=== PATIENT | female | born 1965 | race Caucasian/White ===

== ENCOUNTER 2023-06-01 20:21 | Outpatient (REF) | payer OTHER, SELFPAY ==
[2023-06-04 18:10] LABS: Age Gdln ACOG Testing Note (.); HPV Aptima Negative (Negative); IGP, Aptima HPV, rfx 16/18,45 Note (.)
== END 2023-06-01 20:22 | disposition home or self-care (01) ==
LOC: LAB 20:21
PROVIDERS: Visit Provider Physician Assistant
DX: Z01.419 Encounter for gynecological examination (general) (routine) without abnormal findings (principal)
CPT/HCPCS: 87624; G0145

== ENCOUNTER 2024-06-06 20:44 | Outpatient (REF) | payer OTHER, SELFPAY ==
--- OUTSIDE RECORDS SUMMARY | 2024-06-06 20:53 | XMS_ITS | CCD ---
Author Organization [facility] Care Team Providers Care Zoology Professor Name Role Phone DR HEIDE GUTIERREZ Admitting Unavailable DR HEIDE GUTIERREZ Attending Unavailable Heide Gutierrez Primary Care Physician Heide Gutierrez Attending Unavailable Hoy, Heide Admitting Unavailable Hoy, Heide Admitting Unavailable Hoy, Heide Attending Unavailable Hoy, Heide Admitting Unavailable Hoy, Heide Attending Unavailable Hoy, Heide Admitting Unavailable Hoy, Heide Attending Unavailable Hoy, Heide Admitting Unavailable Hoy, Heide Attending Unavailable Hoy, Heide Admitting Unavailable Hoy, Heide Attending Unavailable Hoy, Heide Attending Unavailable Hoy, Heide Admitting Unavailable Hoy, Heide Admitting Unavailable Hoy, Heide Attending Unavailable Rafa, Mohamed F. Admitting Unavailable Rafa, Mohamed F. Attending Unavailable Rafa, Mohamed F. Referring Unavailable Hoy, Heide Attending Unavailable Hoy, Heide Admitting Unavailable Hoy, Heide Admitting Unavailable Hoy, Heide Attending Unavailable Rafa, Mohamed F. Attending Unavailable NONE, XXXX Referring Unavailable ANNE, Tai R Admitting Unavailable ANNE, Tai R Attending Unavailable ANNE, Tai R Referring Unavailable ANNE, Tai R Admitting Unavailable ANNE, Tai R Attending Unavailable ANNE, Tai R Referring Unavailable TONYA, JADEN Admitting Unavailable TONYA, JADEN Attending Unavailable TONYA, JADEN Referring Unavailable TONYA, JADEN Attending Unavailable TONYA, JADEN Referring Unavailable TONYA, JADEN Admitting Unavailable Hoy, Heide Attending Unavailable Hoy, Heide Referring Unavailable Hoy, Heide Admitting Unavailable Hoy, Heide Admitting Unavailable Hoy, Heide Attending Unavailable Hoy, Heide Admitting Unavailable Hoy, Heide Attending Unavailable Hoy, Heide Admitting Unavailable Hoy, Heide Attending Unavailable Kemar Magallanes Attending Unavailable Hoy, Heide Referring Unavailable Hoy, Heide Admitting Unavailable Hoy, Heide Attending Unavailable Pranav Nicolas Attending Unavailable Hoy, Heide Admitting Unavailable Hoy, Heide Attending Unavailable Mandeep SMILEY Attending Unavailable Hoy, Heide Attending Unavailable Karlosy, Heide Admitting Unavailable Heide Gutierrez MD Primary Care Provider [phone] Allergies Allergy Classification Reported Allergen(s) Allergy Type Date of Onset Reaction(s) Facility Aminoketones (1 source) buPROPion; Translations: [Wellbutrin] Drug Allergy [facility] Cephalosporins (antibiotic) (1 source) Cephalexin; Translations: [Keflex] Drug Allergy [facility] Penicillins (antibiotic) (1 source) Penicillin; Translations: [penicillin] Drug Allergy [facility] Sulfonamides (antibiotic) (1 source) Sulfonamides (Antibiotic); Translations: [sulfa drugs] Drug Allergy [facility] (20 sources) buPROPion; Translations: [bupropion] Drug Allergy Weal (disorder) [facility] (9 sources) Cephalexin; Translations: [cephalexin] Drug Allergy Unknown (qualifier value) [facility] (20 sources) Penicillin; Translations: [penicillin] Drug Allergy 4 [facility] (20 sources) Sulfonamides (Antibiotic); Translations: [sulfa drugs] Drug allergy Unknown (qualifier value), Stomach ache (finding) [facility] (9 sources) Unable to obtain; Translations: [Unable to obtain] Propensity to adverse reactions (disorder) [facility] (2 sources) buPROPion Drug Allergy 4 Hives [facility] (2 sources) Sulfonamides (Antibiotic) Propensity to adverse reactions to drug 4 Nausea [facility] Medications Current Medications Medication Drug Class(es) Dates Sig (Normalized) Sig (Original) 8 hr acetaminophen 650 mg extended release oral tablet (2 sources) take 1 tablet by mouth every eight hours as needed acetaminophen (TYLENOL ARTHRITIS) 650 mg 8 hr tablet Take 1 tablet (650 mg total) by mouth every 8 (eight) hours as needed. Active amitriptyline hydrochloride 25 mg oral tablet (13 sources) Tricyclic Antidepressant Start: 08-18-2023 amitriptyline 25 mg Tab Oral, Once a day (at bedtime), Refills(s) 0, Depression Start Date: 08/18/23 Status: Ordered ARIPiprazole 2 mg oral tablet (20 sources) Atypical Antipsychotic Start: 11-20-2021 take 1 tablet by mouth once daily Abilify 2 mg Tab 2 mg = 1 tab(s), Oral, Daily, Refills(s) 0, Depression Start Date: 11/20/21 Status: Ordered carvedilol 12.5 mg oral tablet (20 sources) alpha-Adrenergic Aravind, beta-Adrenergic Aravind Start: 11-20-2021 take 1 tablet by mouth twice daily Coreg 12.5 mg Tab 12.5 mg = 1 tab(s), Oral, BID, Refills(s) 0, High blood pressure Start Date: 11/20/21 Status: Ordered cholecalciferol 0.025 mg oral tablet (4 sources) Vitamin D Start: 10-19-2023 calcium (as carbonate)-vitamin D 90 mg-25 mcg (1000 intl units) oral tablet Refill(s) 0 Start Date: 10/19/23 Status: Ordered diclofenac sodium 75 mg delayed release oral tablet (1 source) Nonsteroidal Anti-inflammatory Drug Start: 11-20-2021 take 1 tablet by mouth twice daily diclofenac sodium 75 mg Oral EC Tab 75 mg = 1 tab(s), Oral, BID, Refills(s) 0 Start Date: 11/20/21 Status: Ordered ferrous sulfate 325 mg delayed release oral tablet (13 sources) Start: 08-18-2023 take 1 tablet by mouth twice daily ferrous sulfate 325 mg oral enteric coated tablet 325 mg = 1 tab(s), Oral, BID, # 30 tab(s), Refills(s) 0 Start Date: 08/18/23 Status: Ordered Fish Oils (4 sources) Start: 10-19-2023 Caney-3 Fish Oil Refills(s) 0 Start Date: 10/19/23 Status: Ordered magnesium sulfate 100 mg oral capsule (2 sources) Multi Vitamins oral tablet (17 sources) Start: 11-27-2021 take 2 tablets by mouth once daily Multi Vitamins oral tablet 2 tab(s), Oral, Daily, Refill(s) 0, Prophylaxis Start Date: 11/27/21 Status: Ordered omeprazole 20 mg delayed release oral capsule (20 sources) Proton Pump Inhibitor Start: 11-27-2021 omeprazole 20 mg Cap-DR 40 mg = 2 cap(s), Oral, Daily, Refills(s) 0, Control of stomach acid Start Date: 11/27/21 Status: Ordered Start: 11-20-2021 take 1 capsule by [facility] once daily omeprazole 40 mg Cap-DR 40 mg = 1 cap(s), Oral, Daily, Refills(s) 0 Start Date: 11/20/21 Status: Ordered phentermine hydrochloride 37.5 mg oral tablet (18 sources) Sympathomimetic Amine Anorectic Start: 08-18-2023 take 1 tablet by mouth once daily Adipex-P 37.5 mg Tab 37.5 mg = 1 tab(s), Oral, Daily, Refills(s) 0, Other (see comment) Start Date: 08/18/23 Status: Ordered Start: 11-20-2021 take 1 tablet by [facility] once daily Adipex-P 37.5 mg Tab 37.5 mg = 1 tab(s), Oral, Daily, Refills(s) 0, Other (see comment) Start Date: 11/20/21 Status: Ordered sucralfate 1000 mg oral tablet (5 sources) Aluminum Complex Start: 12-11-2021 take 1 tablet by mouth four times daily Carafate 1 gram Tab 1 gm = 1 tab(s), Oral, QID, # 120 tab(s), Refills(s) 3, Pharmacy: [facility], 177.8, cm, 12/05/21 6:59:00 EDT, Height/Length Dosing, 151, kg, 12/05/21 6:59:00 EDT, Weight Dosing Start Date: 12/11/21 Status: Ordered 24 hr venlafaxine 75 mg extended release oral capsule (20 sources) Serotonin and Norepinephrine Reuptake Inhibitor Start: 02-11-2023 take 2 capsules by mouth every twenty-four hours in the morning venlafaxine XR (EFFEXOR XR) 75 mg 24 hr capsule Take 2 capsules (150 mg total) by mouth in the morning. 02/11/2023 Active Start: 11-20-2021 take 2 capsules by m outh once daily venlafaxine 75 mg Cap-ER 150 mg = 2 cap(s), Oral, Daily, Refills(s) 0, Depression Start Date: 11/20/21 Status: Ordered Start: 11-20-2021 take 3 capsules by m outh once daily venlafaxine 75 mg Cap-ER 225 mg = 3 cap(s), Oral, Daily, Refills(s) 0 Start Date: 11/20/21 Status: Ordered Vitamin B Complex oral capsule (4 sources) Start: 10-19-2023 Vitamin B Comp charles oral capsule Refill(s) 0 Start Date: 10/19/23 Status: Ordered Vitamin B-12 1000 mcg sublingual tablet (4 sources) Start: 11-27-2021 take 1 tablet under the tongue once daily Vitamin B-12 1000 mcg sublingual tablet 1,000 mcg = 1 tab(s), SubLingual, Daily, Refills(s) 0, Prophylaxis Start Date: 11/27/21 Status: Ordered Vitamin D (17 sources) Start: 11-27-2021 Vitamin D 50,0 00 International_Unit, Oral, qWeek, as directed, Refills(s) 0 Start Date: 11/27/21 Status: Ordered Problems Active Problems Problem Classification Problem Date Documented Da te Episodic/Chronic Anxiety disorders (20 sources) Anxiety; Translations: [Anxiety disorder, unspecified] Onset: 10-01-2023 11-20-2021 Chronic Deficiency and other anemia (1 source) Hemoglobinopathy; 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 Deficiency and other anemia (20 sources) Iron deficiency anemia; Translations: [Iron deficiency anemia, unspecified] Onset: 10-01-2023 11-20-2021 Episodic Deficiency and other anemia (19 sources) Anemia 02-27-2023 Episodic Diverticulosis and diverticulitis (20 sources) Diverticula of intestine; Translations: [Diverticulosis of large intestine without perforation or abscess without bleeding] Onset: 12-11-2021 Chronic Essential hypertension (19 sources) Hypertensive disorder 02-27-2023 Chronic Gastritis and duodenitis (3 sources) Chronic gastritis; Translations: [Unspecified chronic gastritis without bleeding] Onset: 12-11-2021 Chronic Gastritis and duodenitis (20 sources) Gastritis 12-11-2021 Episodic Mood disorders (20 sources) Depressive disorder; Translations: [Depression] Onset: 10-01-2023 11-20-2021 Chronic Other and unspecified benign neoplasm (1 source) Benign lipomatous tumor; Translations: [Benign lipomatous neoplasm, unspecified] Onset: 12-11-2021 Episodic Other and unspecified benign neoplasm (20 sources) Pedunculated lipoma; Translations: [Benign lipomatous neoplasm, unspecified] Onset: 10-01-2023 11-27-2021 Episodic Other circulatory disease (20 sources) Prehypertension; Translations: [Elevated blood-pressure reading, without diagnosis of hypertension] Onset: 10-01-2023 11-20-2021 Episodic Other connective tissue disease (1 source) Disorder of soft tissue; Translations: [Other specified soft tissue disorders] Onset: 10-19-2023 Episodic Other female genital disorders (1 source) Abnormal uterine bleeding; Translations: [Abnormal uterine and vaginal bleeding, unspecified] Onset: 02-27-2023 Chronic Other nutritional; endocrine; and metabolic disorders (20 sources) Body mass index 40+ - severely obese 11-27-2021 Chronic Other nutritional; endocrine; and metabolic disorders (20 sources) Morbid obesity; Translations: [Morbid (severe) obesity due to excess calories] Onset: 10-01-2023 11-27-2021 Chronic Other upper respiratory disease (20 sources) Allergic rhinitis; Translations: [Allergic rhinitis, unspecified] Onset: 10-01-2023 11-20-2021 Chronic Peripheral and visceral atherosclerosis (4 sources) Peripheral vascular disease, unspecified; Translations: [Peripheral vascular disease, unspecified] Onset: 10-01-2023 10-01-2023 Chronic Residual codes; unclassified (20 sources) Obstructive sleep apnea syndrome; Translations: [Obstructive sleep apnea (adult) (pediatric)] Onset: 10-01-2023 11-20-2021 Chronic Past or Other Problems Problem Classification Problem Date Documented Date Episodic/Chronic Other connective tissue disease (4 sources) Swelling of bilateral lower limbs; Translations: [Other specified soft tissue disorders] Onset: 10-01-2023 10-01-2023 Episodic Other diseases of veins and lymphatics (1 source) Telangiectasia disorder; Translations: [Varicose veins of other specified sites] 10-01-2023 Episodic Results Test Name Value Interpretation Reference Range Facility [id number] 11-30-2023 HbA1c (Bld) [Mass fraction] 5.6 % Normal <=5.9 [facility] Comment on above: Performed By: #### [id number] #### [facility] [address] [place] [address] CBC w/ Auto Diffon 4 Basophils/100 WBC (Bld) 0.4 % Normal 0.0-2.0 [facility] Comment on above: Performed By: #### 2 [id number] #### [facility] [address] [place] [address] Basophils/Leukocytes Auto (Bld) [Pure # fraction] 0.0 E9/L Normal 0.0-0.2 [facility] Comment on above: Performed By: #### 2 [id number] #### [facility] [address] [place] [address] Eosinophils (Bld) [#/Vol] 0.2 E9/L Normal 0.0-0.5 [facility] Comment on above: Performed By: #### 2 [id number] #### [facility] [address] [place] [address] Eosinophils/100 WBC (Bld) 1.8 % Normal 0.0-8.0 [facility] Comment on above: Performed By: #### 2 [id number] #### [facility] [address] [place] [address] Erythrocyte distribution width (RBC) [Ratio] 15.1 % High 10.9-14.2 [facility] Comment on above: Performed By: #### 2 [id number] #### [facility] [address] [place] [address] Hematocrit (Bld) [Volume fraction] 41.7 % Normal 34.0-46.0 [facility] Comment on above: Performed By: #### 2 [id number] #### [facility] [address] [place] [address] Hemoglobin (Bld) [Mass/Vol] 13.8 g/dL Normal 12.0-16.0 [facility] Comment on above: Performed By: #### 2 [id number] #### [facility] [address] [place] [address] Lymphocytes (Bld) [#/Vol] 1.3 E9/L Normal 1.0-4.0 [facility] Comment on above: Performed By: #### 2 [id number] #### [facility] [address] [place] [address] Lymphocytes/100 WBC (Bld) 10.3 % Low 14.0-50.0 [facility] Comment on above: Performed By: #### 2 [id number] #### [facility] [address] [place] [address] MCH (RBC) [Entitic mass] 29.0 pg Normal 27.0-34.0 [facility] Comment on above: Performed By: #### 2 [id number] #### [facility] [address] [place] [address] MCHC (RBC) [Mass/Vol] 33.1 g/dL Normal 31.4-36.0 [facility] Comment on above: Performed By: #### 2 [id number] #### [facility] [address] [place] [address] MCV (RBC) [Entitic vol] 87.6 fL Normal 80.0-100.0 [facility] Comment on above: Performed By: #### 2 [id number] #### [facility] [address] [place] [address] Monocytes (Bld) [#/Vol] 1.0 E9/L Normal 0.2-1.0 [facility] Comment on above: Performed By: #### 2 [id number] #### [facility] [address] [place] [address] Neutrophils (Bld) [#/Vol] 10.0 E9/L High 2.0-7.5 [facility] Comment on above: Performed By: #### 2 [id number] #### [facility] [address] [place] [address] Neutrophils/100 WBC (Bld) 79.6 % High 36.0-75.0 [facility] Comment on above: Performed By: #### 2 [id number] #### [facility] [address] [place] [address] Platelet mean volume (Bld) [Entitic vol] 9.3 fL Normal 6.4-10.8 [facility] Comment on above: Performed By: #### 2 [id number] #### [facility] [address] [place] [address] Platelets (Bld) [#/Vol] 298.0 E9/L Normal 150.0-500. 0 [facility] Comment on above: Performed By: #### 2 [id number] #### [facility] [address] [place] [address] RBC (Bld) [#/Vol] 4.8 E12/L Normal 4.3-5.9 [facility] Comment on above: Performed By: #### 2 [id number] #### [facility] [address] [place] [address] WBC corrected for nucl RBC Auto (Bld) [#/Vol] 12.5 E9/L High 4.0-11.0 [facility] Comment on above: Performed By: #### 2 [id number] #### [facility] [address] [place] [address] CHEMISTRYOrdered By: SYSTEM SYSTEM on 11-28-2023 Albumin [Mass/Vol] 4.0 g/dL Normal 3.3 - 5.0 gm/dL [facility] Albumin/Globulin [Mass ratio] 1.4 {ratio} Normal 1.1 - 2.2 [facility] ALP [Catalytic activity/Vol] 90 [iU]/d Normal 21 - 98 Int._Unit/ L [facility] ALT No additional P-5'-P [Catalytic activity/Vol] 12 [iU]/d Normal 6 - 46 Int._Unit/ L [facility] Anion gap [Moles/Vol] 12 mmol/L Normal 6 - 16 mEq/L [facility] AST [Catalytic activity/Vol] 13 [iU]/d Normal 5 - 43 Int._Unit/ L [facility] Bilirubin [Mass/Vol] 0.4 mg/dL Normal 0.0 - 1 .1 mg/dL [facility] Calcium [Mass/Vol] 9.2 mg/dL Normal 8.9 - 11. 1 mg/dL [facility] Chloride [Moles/Vol] 104 mmol/L Normal 101 - 1 11 mmol/L [facility] CO2 [Moles/Vol] 29 mmol/L Normal 21 - 31 mmol/L [facility] Creatinine [Mass/Vol] 0.8 mg/dL Normal 0.5 - 1.3 mg/dL [facility] eGFR 86 mL/min/1.73 m2 Normal >=59mL/min /1.73 m2 [facility] Globulin (S) [Mass/Vol] 2.8 g/dL Normal 1.4 - 4.0 gm/dL [facility] Glucose [Mass/Vol] 112 mg/dL Normal 55 - 199 mg/dL [facility] Potassium [Moles/Vol] 4.5 mmol/L Normal 3.5 - 5.3 mmol/L [facility] Protein [Mass/Vol] 6.8 g/dL Normal 6.0 - 7.8 gm/dL [facility] Sodium [Moles/Vol] 140 mmol/L Normal 135 - 145 mmol/L [facility] Urea nitrogen [Mass/Vol] 18 mg/dL Normal 5 - 21 mg/dL [facility] Urea nitrogen/Creatinine [Mass ratio] 22 mg/mg High 10 - 20 [facility] CMPon 11-28-2023 Albumin [Mass/Vol] 4.0 g/dL Normal 3.3-5.0 [facility] Comment on above: Performed By: #### 2 [id number] #### [facility] [address] [place] [address] Albumin/Globulin (S) [Mass conc ratio] 1.4 Normal 1.1-2.2 [facility] Comment on above: Performed By: #### 2 [id number] #### [facility] [address] [place] [address] ALP [Catalytic activity/Vol] 90 Int._Unit/L Normal 21-98 [facility] Comment on above: Performed By: #### 2 [id number] #### [facility] [address] [place] [address] ALT No additional P-5'-P [Catalytic activity/Vol] 12 Int._Unit/L Normal 6-46 [facility] Comment on above: Performed By: #### 2 [id number] #### [facility] [address] [place] [address] Anion gap [Moles/Vol] 12 mmol/L Normal 6-16 [facility] Comment on above: Performed By: #### 2 [id number] #### [facility] [address] [place] [address] AST [Catalytic activity/Vol] 13 Int._Unit/L Normal 5-43 [facility] Comment on above: Performed By: #### 2 [id number] #### [facility] [address] [place] [address] Bilirubin [Mass/Vol] 0.4 mg/dL Normal 0.0-1.1 [facility] Comment on above: Performed By: #### 2 [id number] #### [facility] [address] [place] [address] Calcium [Mass/Vol] 9.2 mg/dL Normal 8.9-11.1 [facility] Comment on above: Performed By: #### 2 [id number] #### [facility] [address] [place] [address] Chloride [Moles/Vol] 104 mmol/L Normal 101-111 [facility] Comment on above: Performed By: #### 2 [id number] #### [facility] [address] [place] [address] CO2 [Moles/Vol] 29 mmol/L Normal 21-31 [facility] Comment on above: Performed By: #### 2 [id number] #### [facility] [address] [place] [address] Creatinine [Mass/Vol] 0.8 mg/dL Normal 0.5-1.3 [facility] Comment on above: Performed By: #### 2 [id number] #### [facility] [address] [place] [address] Globulin (S) [Mass/Vol] 2.8 g/dL Normal 1.4-4.0 [facility] Comment on above: Performed By: #### 2 [id number] #### [facility] [address] [place] [address] Glucose [Mass/Vol] 112 mg/dL Normal 55-199 [facility] Comment on above: Performed By: #### 2 [id number] #### [facility] [address] [place] [address] Potassium [Moles/Vol] 4.5 mmol/L Normal 3.5-5.3 [facility] Comment on above: Performed By: #### 2 [id number] #### [facility] [address] [place] [address] Protein [Mass/Vol] 6.8 g/dL Normal 6.0-7.8 [facility] Comment on above: Performed By: #### 2 [id number] #### [facility] [address] [place] [address] Sodium [Moles/Vol] 140 mmol/L Normal 135-145 [facility] Comment on above: Performed By: #### 2 [id number] #### [facility] [address] [place] [address] Urea nitrogen [Mass/Vol] 18 mg/dL Normal 5-21 [facility] Comment on above: Performed By: #### 2 [id number] #### [facility] [address] [place] [address] Urea nitrogen/Creatinine [Mass ratio] 22 No Units High 10-20 [facility] Comment on above: Performed By: #### 2 [id number] #### [facility] [address] [place] [address] HEMATOLOGYOrdered By: SYSTEM SYSTEM on 11-28-2023 Basophils/100 WBC (Bld) 0.4 % Normal 0.0 - 2.0 % [facility] Basophils/Leukocytes Auto (Bld) [Pure # fraction] 0.0 E9/L Normal 0.0 - 0.2 E9/L [facility] Eosinophils (Bld) [#/Vol] 0.2 E9/L Normal 0.0 - 0.5 E9/L [facility] Eosinophils/100 WBC (Bld) 1.8 % Normal 0.0 - 8.0 % [facility] Erythrocyte distribution width (RBC) [Ratio] 15.1 % High 10.9 - 14.2 % [facility] Hematocrit (Bld) [Volume fraction] 41.7 % Normal 34.0 - 46.0 % [facility] Hemoglobin (Bld) [Mass/Vol] 13.8 g/dL Normal 12.0 - 16.0 gm/dL [facility] Lymphocytes (Bld) [#/Vol] 1.3 E9/L Normal 1.0 - 4.0 E9/L [facility] Lymphocytes/100 WBC (Bld) 10.3 % Low 14.0 - 50.0 % [facility] MCH (RBC) [Entitic mass] 29.0 pg Normal 27.0 - 34.0 pg [facility] MCHC (RBC) [Mass/Vol] 33.1 g/dL Normal 31.4 - 36.0 gm/dL [facility] MCV (RBC) [Entitic vol] 87.6 fL Normal 80.0 - 100.0 fL [facility] Monocytes (Bld) [#/Vol] 1.0 E9/L Normal 0.2 - 1.0 E9/L [facility] Monocytes/100 WBC (Bld) 7.9 % Normal 4.0 - 14.0 % [facility] Neutrophils (Bld) [#/Vol] 10.0 E9/L High 2.0 - 7.5 E9/L [facility] Neutrophils/100 WBC (Bld) 79.6 % High 36.0 - 75.0 % [facility] Heme Platelet mean volume (Bld) [Entitic vol] 9.3 fL Normal 6.4 - 10.8 fL [facility] Heme Platelets (Bld) [#/Vol] 298.0 E9/L Normal 150.0 - 500.0 E9/L [facility] Heme RBC (Bld) [#/Vol] 4.8 E12/L Normal 4.3 - 5.9 E12/L [facility] Heme WBC corrected for nucl RBC Auto (Bld) [#/Vol] 12.5 E9/L High 4.0 - 11.0 E9/L [facility] Heme eGFRon 11-28-2023 eGFR 86 mL/min/1.73 m2 Normal >=59 [facility] Comment on above: Order Comment: Order added by Discern Expert. Performed By: #### 1 [id number] #### [facility] [address] [place] [address] CBC w/ Auto Diffon Basophils/100 WBC (Bld) 0.4 % Normal 0.0-2.0 [facility] Comment on above: Performed By: #### 2 [id number] #### [facility] [address] [place] [address] Basophils/Leukocytes Auto (Bld) [Pure # fraction] 0.1 E9/L Normal 0.0-0.2 [facility] Comment on above: Performed By: #### 2 [id number] #### [facility] [address] [place] [address] Eosinophils (Bld) [#/Vol] 0.2 E9/L Normal 0.0-0.5 [facility] Comment on above: Performed By: #### 2 [id number] #### [facility] [address] [place] [address] Eosinophils/100 WBC (Bld) 1.7 % Normal 0.0-8.0 [facility] Comment on above: Performed By: #### 2 [id number] #### [facility] [address] [place] [address] Erythrocyte distribution width (RBC) [Ratio] 19.5 % High 10.9-14.2 [facility] Comment on above: Performed By: #### 2 [id number] #### [facility] [address] [place] [address] Hematocrit (Bld) [Volume fraction] 38.3 % Normal 34.0-46.0 [facility] Comment on above: Performed By: #### 2 [id number] #### [facility] [address] [place] [address] Hemoglobin (Bld) [Mass/Vol] 12.8 g/dL Normal 12.0-16.0 [facility] Comment on above: Performed By: #### 2 [id number] #### [facility] [address] [place] [address] Hypochromia Auto Ql (Bld) PRESENT Invalid Interpretation Code [facility] Comment on above: Performed By: #### 2 [id number] #### [facility] [address] [place] [address] Lymphocytes (Bld) [#/Vol] 1.3 E9/L Normal 1.0-4.0 [facility] Comment on above: Performed By: #### 2 [id number] #### [facility] [address] [place] [address] Lymphocytes/100 WBC (Bld) 10.0 % Low 14.0-50.0 [facility] Comment on above: Performed By: #### 2 [id number] #### [facility] [address] [place] [address] MCH (RBC) [Entitic mass] 28.4 pg Normal 27.0-34.0 [facility] Comment on above: Performed By: #### 2 [id number] #### [facility] [address] [place] [address] MCHC (RBC) [Mass/Vol] 33.4 g/dL Normal 31.4-36.0 [facility] Comment on above: Performed By: #### 2 [id number] #### [facility] [address] [place] [address] MCV (RBC) [Entitic vol] 85.2 fL Normal 80.0-100.0 [facility] Comment on above: Performed By: #### 2 [id number] #### [facility] [address] [place] [address] Monocytes (Bld) [#/Vol] 0.9 E9/L Normal 0.2-1.0 [facility] Comment on above: Performed By: #### 2 [id number] #### [facility] [address] [place] [address] Neutrophils (Bld) [#/Vol] 10.6 E9/L High 2.0-7.5 [facility] Comment on above: Performed By: #### 2 [id number] #### [facility] [address] [place] [address] Neutrophils/100 WBC (Bld) 81.2 % High 36.0-75.0 [facility] Comment on above: Performed By: #### 2 [id number] #### [facility] [address] [place] [address] Platelet 317.0 E9/L Normal 150.0-500. 0 [facility] Comment on above: Performed By: #### 2 [id number] #### [facility] [address] [place] [address] Platelet mean volume (Bld) [Entitic vol] 8.9 fL Normal 6.4-10.8 [facility] Comment on above: Performed By: #### 2 [id number] #### [facility] [address] [place] [address] RBC (Bld) [#/Vol] 4.5 E12/L Normal 4.3-5.9 [facility] Comment on above: Performed By: #### 2 [id number] #### [facility] [address] [place] [address] RBC size Nom (Bld) SEE MORPHOLOGY Invalid Interpretation Code [facility] Comment on above: Performed By: #### 2 [id number] #### [facility] [address] [place] [address] WBC corrected for nucl RBC Auto (Bld) [#/Vol] 13.0 E9/L High 4.0-11.0 [facility] Comment on above: Performed By: #### 2 [id number] #### [facility] [address] [place] [address] CHEMISTRYOrdered By: SYSTEM SYSTEM on 10-31-2023 Albumin [Mass/Vol] 4.1 g/dL Normal 3.3 - 5.0 gm/dL [facility] Chem Albumin/Globulin [Mass ratio] 1.5 {ratio} Normal 1.1 - 2.2 [facility] ALP [Catalytic activity/Vol] 95 [iU]/d Normal 21 - 98 Int._Unit/ L [facility] Chem ALT No additional P-5'-P [Catalytic activity/Vol] 13 [iU]/d Normal 6 - 46 Int._Unit/ L [facility] Anion gap [Moles/Vol] 12 mmol/L Normal 6 - 16 mEq/L [facility] AST [Catalytic activity/Vol] 15 [iU]/d Normal 5 - 43 Int._Unit/ L [facility] Bilirubin [Mass/Vol] 0.3 mg/dL Normal 0.0 - 1 .1 mg/dL [facility] Calcium [Mass/Vol] 9.2 mg/dL Normal 8.9 - 11. 1 mg/dL [facility] Chloride [Moles/Vol] 103 mmol/L Normal 101 - 1 11 mmol/L [facility] CO2 [Moles/Vol] 30 mmol/L Normal 21 - 31 mmol/L [facility] Creatinine [Mass/Vol] 0.7 mg/dL Normal 0.5 - 1.3 mg/dL [facility] Chem eGFR 101 mL/min/1.73 m2 Normal >=59mL/mi n /1.73 m2 [facility] Chem Globulin (S) [Mass/Vol] 2.7 g/dL Normal 1.4 - 4.0 gm/dL [facility] Glucose [Mass/Vol] 97 mg/dL Normal 55 - 199 mg/dL [facility] Potassium [Moles/Vol] 4.8 mmol/L Normal 3.5 - 5.3 mmol/L [facility] Protein [Mass/Vol] 6.8 g/dL Normal 6.0 - 7.8 gm/dL [facility] Sodium [Moles/Vol] 140 mmol/L Normal 135 - 145 mmol/L [facility] Urea nitrogen [Mass/Vol] 15 mg/dL Normal 5 - 21 mg/dL [facility] Urea nitrogen/Creatinine [Mass ratio] 21 mg/mg High 10 - 20 [facility] CMPon 10-31-2023 Albumin [Mass/Vol] 4.1 g/dL Normal 3.3-5.0 [facility] Comment on above: Performed By: #### 2 [id number] #### [facility] [address] [place] [address] Albumin/Globulin (S) [Mass conc ratio] 1.5 Normal 1.1-2.2 [facility] Comment on above: Performed By: #### 2 [id number] #### [facility] [address] [place] [address] ALP [Catalytic activity/Vol] 95 Int._Unit/L Normal 21-98 [facility] Comment on above: Performed By: #### 2 [id number] #### [facility] [address] [place] [address] ALT No additional P-5'-P [Catalytic activity/Vol] 13 Int._Unit/L Normal 6-46 [facility] Comment on above: Performed By: #### 2 [id number] #### [facility] [address] [place] [address] Anion gap [Moles/Vol] 12 mmol/L Normal 6-16 [facility] Comment on above: Performed By: #### 2 [id number] #### [facility] [address] [place] [address] AST [Catalytic activity/Vol] 15 Int._Unit/L Normal 5-43 [facility] Comment on above: Performed By: #### 2 [id number] #### [facility] [address] [place] [address] Bilirubin [Mass/Vol] 0.3 mg/dL Normal 0.0-1.1 [facility] Comment on above: Performed By: #### 2 [id number] #### [facility] [address] [place] [address] Calcium [Mass/Vol] 9.2 mg/dL Normal 8.9-11.1 [facility] Comment on above: Performed By: #### 2 [id number] #### [facility] [address] [place] [address] Chloride [Moles/Vol] 103 mmol/L Normal 101-111 [facility] Comment on above: Performed By: #### 2 [id number] #### [facility] [address] [place] [address] CO2 [Moles/Vol] 30 mmol/L Normal 21-31 [facility] Comment on above: Performed By: #### 2 [id number] #### [facility] [address] [place] [address] Creatinine [Mass/Vol] 0.7 mg/dL Normal 0.5-1.3 [facility] Comment on above: Performed By: #### 2 [id number] #### [facility] [address] [place] [address] Globulin (S) [Mass/Vol] 2.7 g/dL Normal 1.4-4.0 [facility] Comment on above: Performed By: #### 2 [id number] #### [facility] [address] [place] [address] Glucose [Mass/Vol] 97 mg/dL Normal 55-199 [facility] Comment on above: Performed By: #### 2 [id number] #### [facility] [address] [place] [address] Potassium [Moles/Vol] 4.8 mmol/L Normal 3.5-5.3 [facility] Comment on above: Performed By: #### 2 [id number] #### [facility] [address] [place] [address] Protein [Mass/Vol] 6.8 g/dL Normal 6.0-7.8 [facility] Comment on above: Performed By: #### 2 [id number] #### [facility] [address] [place] [address] Sodium [Moles/Vol] 140 mmol/L Normal 135-145 [facility] Comment on above: Performed By: #### 2 [id number] #### [facility] [address] [place] [address] Urea nitrogen [Mass/Vol] 15 mg/dL Normal 5-21 [facility] Comment on above: Performed By: #### 2 [id number] #### [facility] [address] [place] [address] Urea nitrogen/Creatinine [Mass ratio] 21 No Units High 10-20 [facility] Comment on above: Performed By: #### 2 [id number] #### [facility] [address] [place] [address] HEMATOLOGYOrdered By: SYSTEM SYSTEM on 10-31-2023 Basophils/100 WBC (Bld) 0.4 % Normal 0.0 - 2.0 % [facility] Heme Basophils/Leukocytes Auto (Bld) [Pure # fraction] 0.1 E9/L Normal 0.0 - 0.2 E9/L [facility] Eosinophils (Bld) [#/Vol] 0.2 E9/L Normal 0.0 - 0.5 E9/L [facility] Eosinophils/100 WBC (Bld) 1.7 % Normal 0.0 - 8.0 % [facility] Erythrocyte distribution width (RBC) [Ratio] 19.5 % High 10.9 - 14.2 % [facility] Hematocrit (Bld) [Volume fraction] 38.3 % Normal 34.0 - 46.0 % [facility]e Hemoglobin (Bld) [Mass/Vol] 12.8 g/dL Normal 12.0 - 16.0 gm/dL [facility] Hypochromia Auto Ql (Bld) PRESENT *NA* (10/31/23 10:53 AM) Invalid Interpretation Code [facility] Lymphocytes (Bld) [#/Vol] 1.3 E9/L Normal 1.0 - 4.0 E9/L [facility] Lymphocytes/100 WBC (Bld) 10.0 % Low 14.0 - 50.0 % [facility]e MCH (RBC) [Entitic mass] 28.4 pg Normal 27.0 - 34.0 pg [facility] Heme MCHC (RBC) [Mass/Vol] 33.4 g/dL Normal 31.4 - 36.0 gm/dL [facility] MCV (RBC) [Entitic vol] 85.2 fL Normal 80.0 - 100.0 fL [facility] Monocytes (Bld) [#/Vol] 0.9 E9/L Normal 0.2 - 1.0 E9/L [facility] Monocytes/100 WBC (Bld) 6.7 % Normal 4.0 - 14.0 % [facility] Neutrophils (Bld) [#/Vol] 10.6 E9/L High 2.0 - 7.5 E9/L [facility] Neutrophils/100 WBC (Bld) 81.2 % High 36.0 - 75.0 % [facility] Heme Platelet 317.0 E9/L Normal 150.0 - 500.0 E9/L [facility] Heme Platelet mean volume (Bld) [Entitic vol] 8.9 fL Normal 6.4 - 10.8 fL [facility]e RBC (Bld) [#/Vol] 4.5 E12/L Normal 4.3 - 5.9 E12/L [facility] Heme RBC size Nom (Bld) SEE MORPHOLOGY *NA* (10/31/23 10:53 AM) Invalid Interpretation Code [facility]e WBC corrected for nucl RBC Auto (Bld) [#/Vol] 13.0 E9/L High 4.0 - 11.0 E9/L [facility] Heme eGFRon 10-31-2023 eGFR 101 mL/min/1.73 m2 Normal >=59 [facility] Comment on above: Order Comment: Order added by Discern Expert. Performed By: #### 1 [id number] #### [facility] [address] [place] [address] Heart and Vascular Office/Cl inic Noteon 10-19-2023 Heart and Vascular Office/Clinic Note Heart and Vascular Office/Clinic Note History of Present Illness This is a pleasant 58-year-old lady with bilateral lower extremity swelling discoloration and concern for peripheral arterial disease and venous insufficiency. I independently reviewed and interpreted her studies her PVR is normal her venous reflux ultrasound is normal. The discoloration is probably for autonomic side effects from her antidepressant medications. She is obese with lower extremity swelling and edema and also she has diabetes and hypertension. I discussed with her to work with her primary care physician on her diabetes and hypertension. I also recommended weight loss and exercise compression stockings leg elevation. I will see her in about a year. She had multiple questions and I addressed them one by one. Review of Systems Constitutional: no fever, no chills, no sweats, no weakness Skin: no Jaundice, no rash, no lesions, nopetechiae ENMT: no ear pain, no sore throat, no congestion, no hoarseness Respiratory: no shortness of breath, no cough, no orthopnea, no wheezing Cardiovascular: no chest pain, no palpitations, no edema Gastrointestinal: no nausea, no vomiting, no diarrhea, no GI bleeding Genitourinary: no dysuria, no hematuria, no discharge, no pain Musculoskeletal: no back pain, no trauma Neurologic: no headache, no dizziness, no numbness, no weakness Psychiatric: no sleeping problems, no irritability, no mood swings/depression. Heme/Lymph: no bleeding tendency, no bruising tendency, no petechiae, no swollen nodes Allergy/Immunologic: no seasonal allergies, no food allergies, no recurrent infections, no impaired immunity Additional ROS info: Except as noted in the above Review of Systems and in the History of Present Illness all other systems have been reviewed and are negative or noncontributory. Physical Exam Vitals & Measurements BP: 167/90 General: alert, no acute distress Skin: warm, dry Head: no trauma, normocephalic Neck: Trachea midline, no adenopathy, no tenderness Eye: normal conjunctiva, sclera clear Cardiovascular: regular rate and rhythm, normal peripheral perfusion Respiratory: Lungs CTA, respirations non labored Chest wall: no deformity. Gastrointestinal: soft, non distended, no tenderness, no guarding. Back: No tenderness, Normal ROM, Normal alignment. Extremities: no edema,no deformity, no trauma Neurological: oriented x 4, LOC appropriate for age, motor strength equal & normal bilaterally, sensation equal & normal bilaterally, speech normal Psychiatric: cooperative, affect appropriate for age, normal judgement, normal psychiatric thoughts. Assessment/Plan 1. Morbid obesity (E66.01: Morbid (severe) obesity due to excess calories) 2. Leg swelling (M79.89: Other specified soft tissue disorders) This is a pleasant 58-year-old lady with bilateral lower extremity swelling discoloration and concern for peripheral arterial disease and venous insufficiency. I independently reviewed and interpreted her studies her PVR is normal her venous reflux ultrasound is normal. The discoloration is probably for autonomic side effects from her antidepressant medications. She is obese with lower extremity swelling and edema and also she has diabetes and hypertension. I discussed with her to work with her primary care physician on her diabetes and hypertension. I also recommended weight loss and exercise compression stockings leg elevation. I will see her in about a year. She had multiple questions and I addressed them one by one. Ordered: US LE Venous Duplex Insufficiency Bilat US PVR Lower EXT Complete Bilat Follow-up No qualifying data available Problem List/Past Medical History Ongoing Allergic rhinitis Antral gastritis Anxiety BMI 45.0-49.9, adult Borderline hypertension Depression Diverticulosis of colon Iron deficiency anemia Morbid obesity JELANI (obstructive sleep apnea) Pedunculated lipoma Historical Anemia Depression Diverticulosis of colon Gastritis Hypertension Procedure/Surgical History Dilatation (04/24/2023), Colonoscopy (12/05/2021), Esophagogastroduodenoscopy (12/05/2021), Excision of lipoma (12/05/2021). Medications Abilify 2 mg Tab, 2 mg= 1 tab(s), Oral, Daily Adipex-P 37.5 mg Tab, 37.5 mg= 1 tab(s), Oral, Daily amitriptyline 25 mg Tab, Oral, Once a day (at bedtime) calcium (as carbonate)-vitamin D 90 mg-25 mcg (1000 intl units) oral tablet Coreg 12.5 mg Tab, 12.5 mg= 1 tab(s), Oral, BID ferrous sulfate 325 mg oral enteric coated tablet, 325 mg= 1 tab(s), Oral, BID Caney-3 Fish Oil omeprazole 20 mg Cap-DR, 40 mg= 2 cap(s), Oral, Daily Sodium Chloride 0.9% IV Ana Cristina 100 mL 100 mL, 100 mL, IV venlafaxine 75 mg Cap-ER, 150 mg= 2 cap(s), Oral, Daily Vitamin B Complex oral capsule Allergies Wellbutrin (Hives) penicillin (Hives) sulfa drugs (Stomach upset) Social History Alcohol - Denies Alcohol Use, 11/27/2021 Current, 1-2 times per month, 02/27/2023 Subst (more content not included)... Normal [facility] Comment on above: Result Comment: Elec tronically Signed By: Rafa QUAN, Kati Katz\.br\Date and Time Signed: 10/19/23 09:29 EDT US LE Venous Duplex Insuffic iency Bilaton 10-19-2023 US LE Venous Duplex Insufficiency Bilat Exam Date/Time: 10/15/2023 15:19 EDT Reason for Exam: M79.89 I73.9 Report IMPRESSION: RIGHT LEG-DEEP VEINS. NEGATIVE FOR DEEP VENOUS THROMBOSIS. RIGHT LEG-SUPERFICIAL VEINS. GREATER SAPHENOUS VEIN AND SMALL SAPHENOUS VEIN NEGATIVE FOR VALVULAR INCOMPETENCY. LEFT LEG-DEEP VEINS. NEGATIVE FOR DEEP VENOUS THROMBOSIS. LEFT LEG SUPERFICIAL VEINS. GREATER SAPHENOUS VEIN AND SMALL SAPHENOUS VEIN NEGATIVE FOR VALVULAR INCOMPETENCY. CLINICAL HISTORY: M79.89 I73.9. Bilateral leg swelling. COMPARISON: COMMENT: On the right, the greater saphenous vein, common femoral vein, femoral vein, deep femoral vein, and popliteal vein demonstrate spontaneous phasic venous flow with augmentation, competence, non-pulsatility, and compressibility every 2 cm. The posterior tibial deep calf vein compresses. The peroneal deep calf vein is not visualized. On the left, the greater saphenous vein, common femoral vein, femoral vein, deep femoral vein, and popliteal vein demonstrate spontaneous phasic venous flow with augmentation, competence, non-pulsatility, and compressibility every 2 cm. The posterior tibial deep calf vein compresses. The peroneal deep calf vein is not visualized. The right and left greater saphenous and small saphenous vein measurements are detailed below. Ordering Provider: Kati Craig FINAL REPORT Dictated: 10/19/2023 9:21 am Stef Langley M.D. Signed (Electronic Signature): 10/19/2023 9:21 am Signed by: Stef Langley M.D. Transcribed by: NELLA Technologist: LÓPEZ Technical Comments Patient Position Reverse Trendelenburg CFV Reflux (sec): None. DFV Reflux (sec): None. FV Prox Reflux (sec): None. FV Mid Reflux (sec): None. FV Dist Reflux (sec): None. Technical Comments Pop V Reflux (sec): None. Right Greater Saphenous: Saphenofemoral Junction (at/near): Diameter 0.9 Depth: Intrafascial Reflux (sec): None. Prox thigh: Diameter 0.7 Depth: Intrafascial Reflux (sec): None. Mid thigh: Diameter 0.6 Depth: Intrafascial Reflux (sec): None. Distal thigh: Diameter 0.5 Depth: Intrafascial Reflux (sec): None. At Knee Diameter 0.5 Depth: Intrafascial Reflux (sec): None. Proximal lower leg: Diameter 0.4 Depth: Intrafascial Reflux (sec): None. Mid lower leg: Diameter 0.3 Depth: Intrafascial Reflux (sec): None. Right Small Saphenous: Connects to: Distal Thigh Junction/Proximal Calf Diameter 0.3 Depth: Intrafascial Reflux (sec): None. Mid calf: Diameter 0.2 Depth: Intrafascial Reflux (sec): None. Patient Position Reverse Trendelenburg Left Greater Saphenous: Saphenofemoral Junction (at/near): Diameter 1.1 Depth: Intrafascial Reflux (sec): None. Prox thigh: Diameter 0.5 Mid thigh: Diameter 0.5 Depth: Intrafascial Reflux (sec): None. Distal thigh: Diameter 0.5 Depth: Intrafascial Reflux (sec): None. At Knee Diameter 0.5 Depth: Intrafascial Reflux (sec): None. Proximal lower leg: Diameter 0.4 Depth: Intrafascial Reflux (sec): None. Mid lower leg: Diameter 0.4 Depth: Intrafascial Reflux (sec): None. Accessory Saphenous: Diameter none Left Small Saphenous: Connects to: Distal Thigh Junction/Proximal Calf Diameter 0.4 Depth: Intrafascial Reflux (sec): None. Mid calf: Diameter 0.4 Depth: Intrafascial Reflux (sec): None. Normal [facility] US PVR Lower EXT Complete Bi laton 10-19-2023 US PVR Lower EXT Complete Bilat Exam Date/Time: 10/15/2023 15:18 EDT Reason for Exam: M79.89 I73.9 Report IMPRESSION: THE RIGHT ANKLE-BRACHIAL INDEX IS BORDERLINE ABNORMAL AT REST. THE LEFT ANKLE-BRACHIAL INDEX IS NORMAL AT REST. CLINICAL HISTORY: M79.89 I73.9. Bilateral leg swelling. COMMENT: On the right, the brachial systolic pressure is 139 , the high thigh pressure is >255, the low thigh pressure is >255, the calf pressure is 148 , the posterior tibial ankle pressure is 132 , the dorsalis pedis ankle pressure is 131 , and the digit pressure is 109 . The ankle-brachial index at the posterior tibial artery is 0.95 and at the dorsalis pedis is 0.94, with normal 1.0 or greater. The toe-brachial index is 0.78, with normal 0.7 or greater. The plethysmography waveforms are mildly to moderately abnormal. On the left, the brachial systolic pressure is 129 , the high thigh pressure is >255, the low thigh pressure is >255, the calf pressure is 161 , the posterior tibial ankle pressure is 147 , the dorsalis pedis ankle pressure is 148 , and the digit pressure is 119 . The ankle-brachial index at the posterior tibial artery is 1.06 and at the dorsalis pedis is 1.06, with normal 1.0 or greater. The toe-brachial index is 0.86, with normal 0.7 or greater. The plethysmography waveforms are mildly to moderately abnormal. Ordering Provider: Kati Craig FINAL REPORT Dictated: 10/19/2023 9:23 am Stef Langley M.D. Signed (Electronic Signature): 10/19/2023 9:23 am Signed by: Stef Langley M.D. Transcribed by: NELLA Technologist: KEYLA Hogan [facility] Coding Summary.on 09-29-2023 Coding Summary. RJWRYuje08GXt5qCq+PG hlYWQ+PE 9RJRMeN48zlPQcqN1bS0OKEUeQXz scQCCYCIlYPeFabsGjYM3fyXLuTW Ju IC8+CG5cFBTvSlvcfOKls8P9yFA0 U57vfw5uFYidtEK9REFlKkLasrqz c4dvoGq1ALiiCtgiMsJw XVYokN03MAB6hZ09Wi61fZRejIOl p8jjzXe2MpPrTLTvZGD0iEeeURec s3HmAVWrB54jwGVdv6R6 HVCueMxwdWEyPoRueOR0bS2xALeo plrmi6krflkuYem2uu88eMJvq0G6 qJZ5U2UsioN6PSRnxIDs LepilBDExX1hkgxhf4ssajnxZgOz DMXtXFv7AAd0JBKrzCveRgLuFA52 OZQ7CROpnwJeO8SyHBHr rMahXfS0s7I2Jg1TD1UOOdwlG0MA TUFSWTwvdGQ+VJ09gt60J0WiJpav Ddf7BVBpLZH9qPB7vD9f AEXfVKuqb5F0fTD8U5BpugRcov7b v2hcIDSjPOutG84srEPnr6H6MTDc yMU6WJUvpDqdStUoqT02 Oyc+VHDfnAmhj4DcIfibf4vpe2da cLp6HionNVKrqhTxhBceEXD9q1Dh Cb9bBGSeqVH8lEM3yU0v WqYpXmQ4SZheT043TdXdwVIaRvgj S80rO2IdgMN+VIMfNnk4NANqyQvy BZ1eC1QwWESubjiwcZHc wFmfJY6xKXOlaeccIJSgsG5iSWFc V1a3ByRmLiF8TZjfD8QxCVLlvoeq Tp71uH0qFiTkZqV5ZPqp G0VxixD1KPSzvVMlRDyjAGC1I66m l6K7VZQgSOLgRBF9qSZ2dP1tqFqi bjogbGVmdDsgdmVydGlj OYzsMHimE072DWDzlJozGwFoGZmv ZyBEYXRlOiAgMDYvMjUvMjAyNDwv dGQ+AFSoMWS4fCvvRXDf aXNpEEroHc0thMfdgEehGT5bJBHa kekoOUIogW9pQIHbiQBtdBkeZI6i MKHnpkwmo465NrTbRWV3 KYJutQHoP4YolS0uDdCcLBIcLISh F8SuwIMtUUlcX019WWwlPrD7ZERz rsDvK5YpLBVcjOerKyQ0 q7W9Ji0Hm1BrtdueH1DeoVMjTiYq AuqmHWg6A9XzIqvszYL+TI22WXId AA50XAi8WOV0cGsrKKby PJDlA4SmlF1aEaLxHFNzJERdPwy+ PHRhYmxlIHdpZHRoPScxMDAlJyBz nGzuAU6zYy0nLUToASFk mDyvkLKbJxLts3feKRYaKRapAL8f oBvqU0OppEG2VQQzx2q3Ai50W69d T1YgxFV+WYYikBA4aBA4 xU8aMzHvKiC7VYstF029PsEdfCDb Jzkgo1rzy6qifDv1UjY2AWTubdYh kJprGET4w2JtOy31J19o HHvaFQCtKEGjYCObIXNhdAtrhg5u lI1wYp1+XZRkfYR6rFF9xM1oDsTp KnD7RFduU221EtHkkLCm Rghpz8vqg2iqzEo6PcNgNERgudAs vThwLBV6z4DxWs77K4DtxNtcp6Yc Rke8et09lLVqc9F8hPW6 O5WzUEQuwmbbnPFjnWgjCM6jVWYt dcaiJDEioP1oZQVmG5i0NiCaWaI5 BHimR8VbqoF8QJJfrFAl BBJhbAROjP7euzoan1effoypRlVw QRTbLVd7PNm8ROUwyDvjJmJmDZU3 BtR1KAB1sHPuyS8teMtc pyxwzS0rKkt+KQC3oTRpeSUOBB7c OjwvdGQ+JOAeJPK9kKwhLIznGYUx iO0fGSXbZ7f5JbVhTjI2 MXtcN3MfveK3ZXPfwWOjLRNalYBD yV3fpnuck1hisuptQjWhVQGhTPs2 KHi3BMBnbRwfZnUaSIF5 AxO8WDV8jVBiuN0nbRwhpgpmdM2b Oyc+DnraoHgaPGI2MRo0S2UdHnf2 VUQzxHdgPL6inRRwHJhy Sk0noHrgjXysQY4tGFYkunwte595 HaGdc0ynQOSmuTWwSAvsJLO6K85y k8E5YEObELCkUNU0eGY3 yO1blDomndcyiAIxcWgsivGjxJmg NRnuNOgiH346DPGxjKqxLfPcVZz9 I0RzYik0WFNphAzgOE4l kLXuQUzfEm2emAhchTnyGZ3kXOMr cclft672BoQca0kaBIYnpPBdWGhu GKW3H04pf2N1GFFsTUGi AUM0rPK0nI3zqVjudntiqWXfkMqd ocUduXsdNNtpKPfdR816ORPljMpq SxUocAd7H1HtIzp6BGMz sLkkCJ2cbGReJGypMx5rqLpthBiu LL2hTBBcksvmg609DiOba9bsQBRj kVEvJVvgHLF1N98kt8W0 UHStEFQwAAY3xMQ5zG6sxZxppyge cEUymKnkquEksVceWSdySQapQ018 IHRvcDsnPlBhdGllbnQg RYoaQXg1X3NaFwucbPR+HI92BHYq VZ42vJRjbIQdx2uewHf2NuDgGSKw SSH2uKkjBFzzo9ObXCHq C10vqDSij7Y7TOLfvYtocEIaWoMs rQG6cJ9gNRkezrakn5ipblhyTvvn r1gomp76qX05O36lXSpr UBIdWVYtBJTqOZEeuIoezf9rtJ5t Ii8+WUBowRY5sTB0yO0kUYItZdK5 QPfeI512GbJotXTfNvms l1kqc3kdvKj1BwE1FNZuyhScjFzj XRK8i8DaIa29D34cNMgnRSBoHOLr DTDaXQLkgEzpip0xxU1l Ii8+OLSmvBT7bUX2qW0iRwVsUaF7 EHhoV999NeEseUWoQbavG20tK2Rs dXA+HORgPnq5TLQkpZtt QK8lgGEyGJqrQi8fBNV9KlAlDyXw BAhtM8BaDPIujixsyitluIH3NXMn CVUelZ43Sa8tbEzoMKDo uWZXlC5ruplsq5vqneruKxWmUIUg CEe9VOp9VHXnnVuvHxGkZFO0SoV1 MAM3qGNhyF3ueIzxusov bW0zD9QwWQXhghyxHr58cC7vHwAd LkH0FJciQdp+UkVFREVSLCBDSEFS KISCJRMSCQ1DVXxhmFX+ QKIqKHY5gDeiSCymQJUrvV5rUJVj H4r1AwQgUjV5OOemS5UgVLYwzovg Vl27qO3hCoFgKlG2FLvq S7KfbyR8GOOzuGEnMBexHPW1O58y v3W0UHIyKALrGBR8oZT8wY2nqUxj bjogbGVmdDsgdmVydGlj FVeoBNhjP580PMBrbOzuKpA8CsWv AsI8Ech5F7NkTht0JYHpoQheWL2z qZGqWVybHy3mwJglxCil FE3qMSZdorwoXFOifW9xGGFyhVAn qUszZU2uDHGiqezdl975MjRxRFI5 FACmtZSiC6OuxR9mHzWx XQRkFRUyE8PtkNFgPUpvG668ZMwd SzH7SOHdwtMkI3LyZHBusDcfLzQ9 k9F9Yr22XuZSLWQgvqkk dGQ+WHItEAF8gFviDQpkUOEzmT3y ZDKuH0i3DfYmGmD8QDbsT5VeBEWx wqxfTm72pB2xWgMjLzZ8 RJnxP6ArgzS7YGXmtRWlADgsELG8 A98zy5F8ONDlSADrJQO2oEE0bT4f bGlnbjogbGVmdDsgdmVy bNkwEKjhSQrwD036MDMdmHhlMtWa bWFsZTwvdGQ+TNLoIQS3yXoxAUfm DBDpnV6lUCVqO3x5OhQb PoY3VOywN0LkECFznbgyLy57vH8q WfEtWjH2NLqyH9QihxU2SXFinLUd FGudQUZ1O19yj1T8HDDk QAAgQRJ2sLM3vS3nfTvlzbiskUSd hAghfwFbnCrrZSegAKotA302FWIi qEqnEl35qMPzkOwtuuB4 F4KoXpmxcJZ+DB68IGIjGE56qUVp jJZsu6pkyJm7DuFqCBSoZVD0kDmr FYdju9MuCPEoY54bdTNu w4G5DGBdzNeztGEqLdExzFK3hY1n JGjixlpbt1hnlkciKtheo7mklg87 yI90N34oMGhjQPHrMBQh MRDgPDQdzMqubz5ztC0rGa4+PGNv nIK5aXE6mH6kCiRrIyW9UTuaP436 TqNkyEBvNoyoe3dgj5bv hLl6NsQwAMOuvnChgYwfPYT4x2Wz Ao66V10bTZvbXCXtWJCaSOOsMNMr oKzgyk8qqW5pXi3+PC9j j0cvzl90hJ21cBA+OWFfTXS8eNbo FAhyRJOvbN7uYZxdVnJ3UEUdNtSo bU32wMCyBLwjCj6urRyq rFldEX9rVTXofcsig848IzDcw5yv KVLlaPOtXZjqMOP4A81oa4E3UXOq KUQtPEL8iHD9yS1fdNbz bjogbGVmdDsgdmVydGljYWwtYWxp P839XIThvRayIwBupHOpQ3wxxzUA XT3sLmplqVT+PHRkIHN0 eHhtZFeaJFUdvW6tNIHmW4r1RaPn OjB5CYrvJ2LgsrV7WGOixHUaHOGb fIVMoX1zhagbc6vrylhx QfQkPSUwERp0WNg0TAQxpOavKrRb MYB0XuP7STP0gBPvpZ0fkQjtzouc dJ9mRdi+RklOOjwvdGQ+ CVGvCRU0fUrzFNgcPRYmtQ3eKBAa Z4m0GhBjSkY4OTuvU5AauxR4QBTh uKQfJQIgaWMNsO9mbjmp x5kwjhknAjOrYMBrRWe2NYf3ZGPw wLqsOlFyPYW1XyJ9RYI9mIYsnK2u oLwyjhumxA7qDlo+TVJO OjwvdGQ+GJBdWWS7xPwcHEijIPSu iM4pKPNxA1v9RjHiJuE8QQmgG3Ge dbP4SPEilYHzBEJybJIX lB9vibauc3lkbepfNmMyQIJmROb8 SVb2JCAazFnvGwUoTBO2FvA4CQX5 sRXyoS0wcImckirucF6g Oyc+BWF4FTP7UI99QB63X1WsGzfg dGFibGU+PHRhYmxlIHdpZHRoPScx FKIpNhQwzYmwCS7zRk5p ZGVyLWNvbGxhc (more content not included)... Normal [facility] CBC w/ Auto Diffon 4 Anisocytosis Ql (Bld) PRESENT Invalid Interpretation Code [facility] Comment on above: Performed By: #### 2 [id number] #### [facility] [address] [place] [address] Basophils/100 WBC (Bld) 0.2 % Normal 0.0-2.0 [facility] Comment on above: Performed By: #### 2 [id number] #### [facility] [address] [place] [address] Basophils/Leukocytes Auto (Bld) [Pure # fraction] 0.0 E9/L Normal 0.0-0.2 [facility] Comment on above: Performed By: #### 2 [id number] #### [facility] [address] [place] [address] Eosinophils (Bld) [#/Vol] 0.2 E9/L Normal 0.0-0.5 [facility] Comment on above: Performed By: #### 2 [id number] #### [facility] [address] [place] [address] Eosinophils/100 WBC (Bld) 1.8 % Normal 0.0-8.0 [facility] Comment on above: Performed By: #### 2 [id number] #### [facility] [address] [place] [address] Erythrocyte distribution width (RBC) [Ratio] 27.8 % High 10.9-14.2 [facility] Comment on above: Performed By: #### 2 [id number] #### [facility] [address] [place] [address] Hematocrit (Bld) [Volume fraction] 36.0 % Normal 34.0-46.0 [facility] Comment on above: Performed By: #### 2 [id number] #### [facility] [address] [place] [address] Hemoglobin (Bld) [Mass/Vol] 12.0 g/dL Normal 12.0-16.0 [facility] Comment on above: Performed By: #### 2 [id number] #### [facility] [address] [place] [address] Lymphocytes (Bld) [#/Vol] 1.2 E9/L Normal 1.0-4.0 [facility] Comment on above: Performed By: #### 2 [id number] #### [facility] [address] [place] [address] Lymphocytes/100 WBC (Bld) 9.9 % Low 14.0-50.0 [facility] Comment on above: Performed By: #### 2 [id number] #### [facility] [address] [place] [address] MCH (RBC) [Entitic mass] 26.9 pg Low 27.0-34.0 [facility] Comment on above: Performed By: #### 2 [id number] #### [facility] [address] [place] [address] MCHC (RBC) [Mass/Vol] 33.4 g/dL Normal 31.4-36.0 [facility] Comment on above: Performed By: #### 2 [id number] #### [facility] [address] [place] [address] MCV (RBC) [Entitic vol] 80.7 fL Normal 80.0-100.0 [facility] Comment on above: Performed By: #### 2 [id number] #### [facility] [address] [place] [address] Microcytes Ql (Bld) PRESENT Invalid Interpretation Code [facility] Comment on above: Performed By: #### 2 [id number] #### [facility] [address] [place] [address] Monocytes (Bld) [#/Vol] 0.8 E9/L Normal 0.2-1.0 [facility] Comment on above: Performed By: #### 2 [id number] #### [facility] [address] [place] [address] Neutrophils (Bld) [#/Vol] 9.9 E9/L High 2.0-7.5 [facility] Comment on above: Performed By: #### 2 [id number] #### [facility] [address] [place] [address] Neutrophils/100 WBC (Bld) 81.2 % High 36.0-75.0 [facility] Comment on above: Performed By: #### 2 [id number] #### [facility] [address] [place] [address] Platelet 338.0 E9/L Normal 150.0-500. 0 [facility] Comment on above: Performed By: #### 2 [id number] #### [facility] [address] [place] [address] Platelet mean volume (Bld) [Entitic vol] 8.5 fL Normal 6.4-10.8 [facility] Comment on above: Performed By: #### 2 [id number] #### [facility] [address] [place] [address] RBC (Bld) [#/Vol] 4.5 E12/L Normal 4.3-5.9 [facility] Comment on above: Performed By: #### 2 [id number] #### [facility] [address] [place] [address] RBC size Nom (Bld) SEE MORPHOLOGY Invalid Interpretation Code [facility] Comment on above: Performed By: #### 2 [id number] #### [facility] [address] [place] [address] WBC corrected for nucl RBC Auto (Bld) [#/Vol] 12.2 E9/L High 4.0-11.0 [facility] Comment on above: Performed By: #### 2 [id number] #### [facility] [address] [place] [address] CHEMISTRYOrdered By: SYSTEM SYSTEM on 09-26-2023 Iron [Mass/Vol] 91 ug/dL Normal 35 - 153 mcg/dL Remisol Chem Consent for Treatmenton 09-05 Consent for Treatment [id number] Normal [facility] HEMATOLOGYOrdered By: Neel Johnson on 09-26-2023 Anisocytosis Ql (Bld) PRESENT *NA* (09/26/23 9:42 AM) Invalid Interpretation Code [facility] Basophils/100 WBC (Bld) 0.2 % Normal 0.0 - 2.0 % [facility] Basophils/Leukocytes Auto (Bld) [Pure # fraction] 0.0 E9/L Normal 0.0 - 0.2 E9/L [facility] Eosinophils (Bld) [#/Vol] 0.2 E9/L Normal 0.0 - 0.5 E9/L [facility] Eosinophils/100 WBC (Bld) 1.8 % Normal 0.0 - 8.0 % [facility] Erythrocyte distribution width (RBC) [Ratio] 27.8 % High 10.9 - 14.2 % [facility] Hematocrit (Bld) [Volume fraction] 36.0 % Normal 34.0 - 46.0 % [facility] Hemoglobin (Bld) [Mass/Vol] 12.0 g/dL Normal 12.0 - 16.0 gm/dL [facility] Lymphocytes (Bld) [#/Vol] 1.2 E9/L Normal 1.0 - 4.0 E9/L [facility] Lymphocytes/100 WBC (Bld) 9.9 % Low 14.0 - 50.0 % [facility] MCH (RBC) [Entitic mass] 26.9 pg Low 27.0 - 34.0 pg [facility] MCHC (RBC) [Mass/Vol] 33.4 g/dL Normal 31.4 - 36.0 gm/dL [facility] MCV (RBC) [Entitic vol] 80.7 fL Normal 80.0 - 100.0 fL [facility] Microcytes Ql (Bld) PRESENT *NA* (09/26/23 9:42 AM) Invalid Interpretation Code [facility] Monocytes (Bld) [#/Vol] 0.8 E9/L Normal 0.2 - 1.0 E9/L [facility] Monocytes/100 WBC (Bld) 6.9 % Normal 4.0 - 14.0 % [facility] Neutrophils (Bld) [#/Vol] 9.9 E9/L High 2.0 - 7.5 E9/L [facility] Neutrophils/100 WBC (Bld) 81.2 % High 36.0 - 75.0 % [facility] Platelet 338.0 E9/L Normal 150.0 - 500.0 E9/L [facility] Platelet mean volume (Bld) [Entitic vol] 8.5 fL Normal 6.4 - 10.8 fL [facility] RBC (Bld) [#/Vol] 4.5 E12/L Normal 4.3 - 5.9 E12/L [facility] RBC size Nom (Bld) SEE MORPHOLOGY *NA* (09/26/23 9:42 AM) Invalid Interpretation Code [facility] WBC corrected for nucl RBC Auto (Bld) [#/Vol] 12.2 E9/L High 4.0 - 11.0 E9/L [facility] Ironon 09-26-2023 Iron [Mass/Vol] 91 microgram/dL Normal 35-153 [facility] Comment on above: Performed By: #### 2 [id number] #### [facility] [address] [place] [address] Physician Orderon 09-26-2023 Physician Order [id number]#[id number] Normal [facility] CBC w/ Auto Diffon Anisocytosis Ql (Bld) PRESENT Invalid Interpretation Code [facility] Comment on above: Performed By: #### 2 [id number] #### [facility] [address] [place] [address] Basophils/100 WBC (Bld) 0.3 % Normal 0.0-2.0 [facility] Comment on above: Performed By: #### 2 [id number] #### [facility] [address] [place] [address] Basophils/Leukocytes Auto (Bld) [Pure # fraction] 0.0 E9/L Normal 0.0-0.2 [facility] Comment on above: Performed By: #### 2 [id number] #### [facility] [address] [place] [address] Eosinophils (Bld) [#/Vol] 0.3 E9/L Normal 0.0-0.5 [facility] Comment on above: Performed By: #### 2 [id number] #### [facility] [address] [place] [address] Eosinophils/100 WBC (Bld) 1.9 % Normal 0.0-8.0 [facility] Comment on above: Performed By: #### 2 [id number] #### [facility] [address] [place] [address] Erythrocyte distribution width (RBC) [Ratio] 29.2 % High 10.9-14.2 [facility] Comment on above: Performed By: #### 2 [id number] #### [facility] [address] [place] [address] Hematocrit (Bld) [Volume fraction] 38.0 % Normal 34.0-46.0 [facility] Comment on above: Performed By: #### 2 [id number] #### [facility] [address] [place] [address] Hemoglobin (Bld) [Mass/Vol] 11.9 g/dL Low 12.0-16.0 [facility] Comment on above: Performed By: #### 2 [id number] #### [facility] [address] [place] [address] Hypochromia Auto Ql (Bld) PRESENT Invalid Interpretation Code [facility] Comment on above: Performed By: #### 2 [id number] #### [facility] [address] [place] [address] Lymphocytes (Bld) [#/Vol] 1.5 E9/L Normal 1.0-4.0 [facility] Comment on above: Performed By: #### 2 [id number] #### [facility] [address] [place] [address] Lymphocytes/100 WBC (Bld) 10.8 % Low 14.0-50.0 [facility] Comment on above: Performed By: #### 2 [id number] #### [facility] [address] [place] [address] MCH (RBC) [Entitic mass] 25.4 pg Low 27.0-34.0 [facility] Comment on above: Performed By: #### 2 [id number] #### [facility] [address] [place] [address] MCHC (RBC) [Mass/Vol] 31.2 g/dL Low 31.4-36.0 [facility] Comment on above: Performed By: #### 2 [id number] #### [facility] [address] [place] [address] MCV (RBC) [Entitic vol] 81.4 fL Normal 80.0-100.0 [facility] Comment on above: Performed By: #### 2 [id number] #### [facility] [address] [place] [address] Monocytes (Bld) [#/Vol] 0.9 E9/L Normal 0.2-1.0 [facility] Comment on above: Performed By: #### 2 [id number] #### [facility] [address] [place] [address] Neutrophils (Bld) [#/Vol] 11.1 E9/L High 2.0-7.5 [facility] Comment on above: Performed By: #### 2 [id number] #### [facility] [address] [place] [address] Neutrophils/100 WBC (Bld) 80.2 % High 36.0-75.0 [facility] Comment on above: Performed By: #### 2 [id number] #### [facility] [address] [place] [address] Platelet mean volume (Bld) [Entitic vol] 8.7 fL Normal 6.4-10.8 [facility] Comment on above: Performed By: #### 2 [id number] #### [facility] [address] [place] [address] Platelets (Bld) [#/Vol] 322.0 E9/L Normal 150.0-500. 0 [facility] Comment on above: Performed By: #### 2 [id number] #### [facility] [address] [place] [address] RBC (Bld) [#/Vol] 4.7 E12/L Normal 4.3-5.9 [facility] Comment on above: Performed By: #### 2 [id number] #### [facility] [address] [place] [address] WBC corrected for nucl RBC Auto (Bld) [#/Vol] 13.8 E9/L High 4.0-11.0 [facility] Comment on above: Performed By: #### 2 [id number] #### [facility] [address] [place] [address] CHEMISTRYOrdered By: SYSTEM SYSTEM on 09-19-2023 Iron [Mass/Vol] 64 ug/dL Normal 35 - 153 mcg/dL Remisol Chem Consent for Treatmenton 09-04 Consent for Treatment [id number] Normal [facility] HEMATOLOGYOrdered By: SYSTEM SYSTEM on 09-19-2023 Anisocytosis Ql (Bld) PRESENT *NA* (09/19/23 9:25 AM) Invalid Interpretation Code [facility]e Basophils/100 WBC (Bld) 0.3 % Normal 0.0 - 2.0 % [facility] Basophils/Leukocytes Auto (Bld) [Pure # fraction] 0.0 E9/L Normal 0.0 - 0.2 E9/L [facility] Eosinophils (Bld) [#/Vol] 0.3 E9/L Normal 0.0 - 0.5 E9/L [facility] Eosinophils/100 WBC (Bld) 1.9 % Normal 0.0 - 8.0 % [facility] Erythrocyte distribution width (RBC) [Ratio] 29.2 % High 10.9 - 14.2 % [facility] Hematocrit (Bld) [Volume fraction] 38.0 % Normal 34.0 - 46.0 % [facility] Hemoglobin (Bld) [Mass/Vol] 11.9 g/dL Low 12.0 - 16.0 gm/dL [facility] Hypochromia Auto Ql (Bld) PRESENT *NA* (09/19/23 9:25 AM) Invalid Interpretation Code [facility] Lymphocytes (Bld) [#/Vol] 1.5 E9/L Normal 1.0 - 4.0 E9/L [facility] Lymphocytes/100 WBC (Bld) 10.8 % Low 14.0 - 50.0 % [facility] MCH (RBC) [Entitic mass] 25.4 pg Low 27.0 - 34.0 pg [facility] MCHC (RBC) [Mass/Vol] 31.2 g/dL Low 31.4 - 36.0 gm/dL [facility] MCV (RBC) [Entitic vol] 81.4 fL Normal 80.0 - 100.0 fL [facility] Monocytes (Bld) [#/Vol] 0.9 E9/L Normal 0.2 - 1.0 E9/L [facility] Monocytes/100 WBC (Bld) 6.8 % Normal 4.0 - 14.0 % [facility] Neutrophils (Bld) [#/Vol] 11.1 E9/L High 2.0 - 7.5 E9/L [facility] Neutrophils/100 WBC (Bld) 80.2 % High 36.0 - 75.0 % [facility] Platelet mean volume (Bld) [Entitic vol] 8.7 fL Normal 6.4 - 10.8 fL [facility] Platelets (Bld) [#/Vol] 322.0 E9/L Normal 150.0 - 500.0 E9/L [facility] RBC (Bld) [#/Vol] 4.7 E12/L Normal 4.3 - 5.9 E12/L [facility] WBC corrected for nucl RBC Auto (Bld) [#/Vol] 13.8 E9/L High 4.0 - 11.0 E9/L [facility] Ironon 09-19-2023 Iron [Mass/Vol] 64 microgram/dL Normal 35-153 [facility] Comment on above: Performed By: #### [id number] #### [facility] [address] [place] [address] Physician Orderon 09-19-2023 Physician Order [id number] Normal [facility] CBC w/ Auto Diffon 4 Anisocytosis Ql (Bld) PRESENT Invalid Interpretation Code [facility] Comment on above: Performed By: #### [id number] #### [facility] [address] [place] [address] Basophils/100 WBC (Bld) 0.4 % Normal 0.0-2.0 [facility] Comment on above: Performed By: #### 2 [id number] #### [facility] [address] [place] [address] Basophils/Leukocytes Auto (Bld) [Pure # fraction] 0.1 E9/L Normal 0.0-0.2 [facility] Comment on above: Performed By: #### 2 [id number] #### [facility] [address] [place] [id number] Eosinophils (Bld) [#/Vol] 0.2 E9/L Normal 0.0-0.5 [facility] Comment on above: Performed By: #### 2 [id number] #### [facility] [address] [place] [address] Eosinophils/100 WBC (Bld) 1.5 % Normal 0.0-8.0 [facility] Comment on above: Performed By: #### 2 [id number] #### [facility] [address] [place] [address] Erythrocyte distribution width (RBC) [Ratio] 30.5 % High 10.9-14.2 [facility] Comment on above: Performed By: #### 2 [id number] #### [facility] [address] [place] [id number] Hematocrit (Bld) [Volume fraction] 36.9 % Normal 34.0-46.0 [facility] Comment on above: Performed By: #### [id number] #### [facility] [address] [place] [address] Hemoglobin (Bld) [Mass/Vol] 11.9 g/dL Low 12.0-16.0 [facility] Comment on above: Performed By: #### 2 [id number] #### [facility] [address] [place] [address] Hypochromia Auto Ql (Bld) PRESENT Invalid Interpretation Code [facility] Comment on above: Performed By: #### 2 [id number] #### [facility] [address] [place] [address] Lymphocytes (Bld) [#/Vol] 1.5 E9/L Normal 1.0-4.0 [facility] Comment on above: Performed By: #### [id number] #### [facility] [address] [place] [id number] Lymphocytes/100 WBC (Bld) 11.9 % Low 14.0-50.0 [facility] [facility] Comment on above: Performed By: #### 2 [id number] #### [facility] [address] [place] [address] MCH (RBC) [Entitic mass] 25.5 pg Low 27.0-34.0 [facility] Comment on above: Performed By: #### 2 [id number] #### [facility] [address] [place] [address] MCHC (RBC) [Mass/Vol] 32.1 g/dL Normal 31.4-36.0 [facility] Comment on above: Performed By: #### 2 [id number] #### [facility] [address] [place] [address] MCV (RBC) [Entitic vol] 79.6 fL Low 80.0-100.0 [facility] Comment on above: Performed By: #### 2 [id number] #### [facility] [address] [place] [address] Monocytes (Bld) [#/Vol] 0.8 E9/L Normal 0.2-1.0 [facility] Comment on above: Performed By: #### 2 [id number] #### [facility] [address] [place] [address] Neutrophils (Bld) [#/Vol] 10.1 E9/L High 2.0-7.5 [facility] Comment on above: Performed By: #### 2 [id number] #### [facility] [address] [place] [address] Neutrophils/100 WBC (Bld) 79.9 % High 36.0-75.0 [facility] Comment on above: Performed By: #### 2 [id number] #### [facility] [address] [place] [address] Ovalocytes LM Ql (Bld) PRESENT Invalid Interpretation Code [facility] Comment on above: Performed By: #### 2 [id number] #### [facility] [address] [place] [address] Platelet 324.0 E9/L Normal 150.0-500. 0 [facility] Comment on above: Performed By: #### 2 [id number] #### [facility] [address] [place] [address] Platelet mean volume (Bld) [Entitic vol] 8.8 fL Normal 6.4-10.8 [facility] Comment on above: Performed By: #### 2 [id number] #### [facility] [address] [place] [address] RBC (Bld) [#/Vol] 4.6 E12/L Normal 4.3-5.9 [facility] Comment on above: Performed By: #### 2 [id number] #### [facility] [address] [place] [address] RBC size Nom (Bld) SEE MORPHOLOGY Invalid Interpretation Code [facility] Comment on above: Performed By: #### 2 [id number] #### [facility] [address] [place] [address] WBC corrected for nucl RBC Auto (Bld) [#/Vol] 12.6 E9/L High 4.0-11.0 [facility] Comment on above: Performed By: #### 2 [id number] #### [facility] [address] [place] [address] CHEMISTRYOrdered By: SYSTEM SYSTEM on 09-12-2023 Iron [Mass/Vol] 78 ug/dL Normal 35 - 153 mcg/dL Remisol Chem Consent for Treatmenton Consent for Treatment [id number]#[id number] Normal [facility] HEMATOLOGYOrdered By: SYSTEM SYSTEM on 09-12-2023 Anisocytosis Ql (Bld) PRESENT *NA* (09/12/23 9:53 AM) Invalid Interpretation Code Rem[facility] Heme Basophils/100 WBC (Bld) 0.4 % Normal 0.0 - 2.0 % Rem[facility]e Basophils/Leukocytes Auto (Bld) [Pure # fraction] 0.1 E9/L Normal 0.0 - 0.2 E9/L [facility] Eosinophils (Bld) [#/Vol] 0.2 E9/L Normal 0.0 - 0.5 E9/L [facility] Eosinophils/100 WBC (Bld) 1.5 % Normal 0.0 - 8.0 % [facility] Erythrocyte distribution width (RBC) [Ratio] 30.5 % High 10.9 - 14.2 % [facility] Hematocrit (Bld) [Volume fraction] 36.9 % Normal 34.0 - 46.0 % [facility] Hemoglobin (Bld) [Mass/Vol] 11.9 g/dL Low 12.0 - 16.0 gm/dL [facility] Hypochromia Auto Ql (Bld) PRESENT *NA* (09/12/23 9:53 AM) Invalid Interpretation Code [facility] Lymphocytes (Bld) [#/Vol] 1.5 E9/L Normal 1.0 - 4.0 E9/L [facility] Lymphocytes/100 WBC (Bld) 11.9 % Low 14.0 - 50.0 % [facility] MCH (RBC) [Entitic mass] 25.5 pg Low 27.0 - 34.0 pg Rem[facility]e MCHC (RBC) [Mass/Vol] 32.1 g/dL Normal 31.4 - 36.0 gm/dL [facility] MCV (RBC) [Entitic vol] 79.6 fL Low 80.0 - 100.0 fL [facility] Monocytes (Bld) [#/Vol] 0.8 E9/L Normal 0.2 - 1.0 E9/L [facility]e Monocytes/100 WBC (Bld) 6.3 % Normal 4.0 - 14.0 % [facility] Neutrophils (Bld) [#/Vol] 10.1 E9/L High 2.0 - 7.5 E9/L [facility] Neutrophils/100 WBC (Bld) 79.9 % High 36.0 - 75.0 % [facility] Ovalocytes LM Ql (Bld) PRESENT *NA* (09/12/23 9:53 AM) Invalid Interpretation Code [facility] Platelet 324.0 E9/L Normal 150.0 - 500.0 E9/L [facility] Platelet mean volume (Bld) [Entitic vol] 8.8 fL Normal 6.4 - 10.8 fL [facility]e RBC (Bld) [#/Vol] 4.6 E12/L Normal 4.3 - 5.9 E12/L [facility] Heme RBC size Nom (Bld) SEE MORPHOLOGY *NA* (09/12/23 9:53 AM) Invalid Interpretation Code Rem[facility]e WBC corrected for nucl RBC Auto (Bld) [#/Vol] 12.6 E9/L High 4.0 - 11.0 E9/L [facility]e Ironon 09-12-2023 Iron [Mass/Vol] 78 microgram/dL Normal 35-153 [facility] Comment on above: Performed By: #### 2 [id number] #### [facility] [address] [place] [address] Physician Orderon 09-12-2023 Physician Order [id number] Normal [facility] CBC w/ Auto Diffon Anisocytosis Ql (Bld) PRESENT Invalid Interpretation Code [facility] Comment on above: Performed By: #### 2 [id number] #### [facility] [address] [place] [address] Basophils/100 WBC (Bld) 0.4 % Normal 0.0-2.0 [facility] Comment on above: Performed By: #### 2 [id number] #### [facility] [address] [place] [address] Basophils/Leukocytes Auto (Bld) [Pure # fraction] 0.0 E9/L Normal 0.0-0.2 [facility] Comment on above: Performed By: #### 2 [id number] #### [facility] [address] [place] [address] Elliptocytes LM Ql (Bld) PRESENT Invalid Interpretation Code [facility] Comment on above: Performed By: #### 2 [id number] #### [facility] [address] [place] [address] Eosinophils (Bld) [#/Vol] 0.2 E9/L Normal 0.0-0.5 [facility] Comment on above: Performed By: #### 2 [id number] #### [facility] [address] [place] [address] Eosinophils/100 WBC (Bld) 1.8 % Normal 0.0-8.0 [facility] Comment on above: Performed By: #### 2 [id number] #### [facility] [address] [place] [address] Erythrocyte distribution width (RBC) [Ratio] 31.7 % High 10.9-14.2 [facility] Comment on above: Performed By: #### 2 [id number] #### [facility] [address] [place] [address] Hematocrit (Bld) [Volume fraction] 35.7 % Normal 34.0-46.0 [facility] Comment on above: Performed By: #### 2 [id number] #### [facility] [address] [place] [address] Hemoglobin (Bld) [Mass/Vol] 10.9 g/dL Low 12.0-16.0 [facility] Comment on above: Performed By: #### 2 [id number] #### [facility] [address] [place] [address] Hypochromia Auto Ql (Bld) PRESENT Invalid Interpretation Code [facility] Comment on above: Performed By: #### 2 [id number] #### [facility] [address] [place] [address] Lymphocytes (Bld) [#/Vol] 0.9 E9/L Low 1.0-4.0 [facility] Comment on above: Performed By: #### 2 [id number] #### [facility] [address] [place] [address] Lymphocytes/100 WBC (Bld) 7.9 % Low 14.0-50.0 [facility] Comment on above: Performed By: #### 2 [id number] #### [facility] [address] [place] [address] MCH (RBC) [Entitic mass] 24.3 pg Low 27.0-34.0 [facility] Comment on above: Performed By: #### 2 [id number] #### [facility] [address] [place] [address] MCHC (RBC) [Mass/Vol] 30.6 g/dL Low 31.4-36.0 [facility] Comment on above: Performed By: #### 2 [id number] #### [facility] [address] [place] [address] MCV (RBC) [Entitic vol] 79.4 fL Low 80.0-100.0 [facility] Comment on above: Performed By: #### 2 [id number] #### [facility] [address] [place] [address] Monocytes (Bld) [#/Vol] 0.9 E9/L Normal 0.2-1.0 [facility] Comment on above: Performed By: #### 2 [id number] #### [facility] [address] [place] [address] Neutrophils (Bld) [#/Vol] 8.9 E9/L High 2.0-7.5 [facility] Comment on above: Performed By: #### 2 [id number] #### [facility] [address] [place] [address] Neutrophils/100 WBC (Bld) 81.9 % High 36.0-75.0 [facility] Comment on above: Performed By: #### 2 [id number] #### [facility] [address] [place] [address] Platelet 391.0 E9/L Normal 150.0-500. 0 [facility] Comment on above: Performed By: #### 2 [id number] #### [facility] [address] [place] [address] Platelet mean volume (Bld) [Entitic vol] 8.7 fL Normal 6.4-10.8 [facility] Comment on above: Performed By: #### 2 [id number] #### [facility] [address] [place] [address] RBC (Bld) [#/Vol] 4.5 E12/L Normal 4.3-5.9 [facility] Comment on above: Result Comment: Resu lts are consistent with previous pathologist review from 08/17/23 Performed By: #### 2 [id number] #### [facility] [address] [place] [address] RBC size Nom (Bld) SEE MORPHOLOGY Invalid Interpretation Code [facility] Comment on above: Performed By: #### 2 [id number] #### [facility] [address] [place] [address] WBC corrected for nucl RBC Auto (Bld) [#/Vol] 10.9 E9/L Normal 4.0-11.0 [facility] Comment on above: Performed By: #### 2 [id number] #### [facility] [address] [place] [address] CHEMISTRYOrdered By: SYSTEM SYSTEM on 09-05-2023 Iron [Mass/Vol] 77 ug/dL Normal 35 - 153 mcg/dL Remisol Chem Consent for Treatmenton Consent for Treatment [id number]#[id number] Normal [facility] HEMATOLOGYOrdered By: SYSTEM SYSTEM on 09-05-2023 Anisocytosis Ql (Bld) PRESENT *NA* (09/05/23 9:17 AM) Invalid Interpretation Code Rem[facility] Heme Basophils/100 WBC (Bld) 0.4 % Normal 0.0 - 2.0 % [facility] Basophils/Leukocytes Auto (Bld) [Pure # fraction] 0.0 E9/L Normal 0.0 - 0.2 E9/L [facility] Elliptocytes LM Ql (Bld) PRESENT *NA* (09/05/23 9:17 AM) Invalid Interpretation Code [facility] Eosinophils (Bld) [#/Vol] 0.2 E9/L Normal 0.0 - 0.5 E9/L [facility] Eosinophils/100 WBC (Bld) 1.8 % Normal 0.0 - 8.0 % [facility] Erythrocyte distribution width (RBC) [Ratio] 31.7 % High 10.9 - 14.2 % [facility] Hematocrit (Bld) [Volume fraction] 35.7 % Normal 34.0 - 46.0 % [facility] Hemoglobin (Bld) [Mass/Vol] 10.9 g/dL Low 12.0 - 16.0 gm/dL [facility] Hypochromia Auto Ql (Bld) PRESENT *NA* (09/05/23 9:17 AM) Invalid Interpretation Code [facility] Lymphocytes (Bld) [#/Vol] 0.9 E9/L Low 1.0 - 4.0 E9/L [facility] Lymphocytes/100 WBC (Bld) 7.9 % Low 14.0 - 50.0 % [facility] MCH (RBC) [Entitic mass] 24.3 pg Low 27.0 - 34.0 pg [facility]e MCHC (RBC) [Mass/Vol] 30.6 g/dL Low 31.4 - 36.0 gm/dL [facility] MCV (RBC) [Entitic vol] 79.4 fL Low 80.0 - 100.0 fL [facility] Monocytes (Bld) [#/Vol] 0.9 E9/L Normal 0.2 - 1.0 E9/L [facility] Monocytes/100 WBC (Bld) 8.0 % Normal 4.0 - 14.0 % [facility] Neutrophils (Bld) [#/Vol] 8.9 E9/L High 2.0 - 7.5 E9/L [facility] Neutrophils/100 WBC (Bld) 81.9 % High 36.0 - 75.0 % [facility] Platelet 391.0 E9/L Normal 150.0 - 500.0 E9/L [facility] Platelet mean volume (Bld) [Entitic vol] 8.7 fL Normal 6.4 - 10.8 fL [facility] RBC (Bld) [#/Vol] 4.5 E12/L Normal 4.3 - 5.9 E12/L [facility] Comment on above: Result Comment: Resu lts are consistent with previous pathologist review from 08/17/23 RBC size Nom (Bld) SEE MORPHOLOGY *NA* (09/05/23 9:17 AM) Invalid Interpretation Code [facility] WBC corrected for nucl RBC Auto (Bld) [#/Vol] 10.9 E9/L Normal 4.0 - 11.0 E9/L [facility] Ironon 09-05-2023 Iron [Mass/Vol] 77 microgram/dL Normal 35-153 [facility] Comment on above: Performed By: #### 2 [id number] #### [facility] [address] [place] [address] Physician Orderon 09-05-2023 Physician Order [id number]#1.00TIFF Normal [facility] Physician Orderon 08-26-2023 Physician Order [id number]#1.00TIFF Normal [facility] CBC w/ Auto Diffon Anisocytosis Ql (Bld) PRESENT Invalid Interpretation Code [facility] Comment on above: Performed By: #### 2 [id number] #### [facility] [address] [place] [address] Basophils/100 WBC (Bld) 0.3 % Normal 0.0-2.0 [facility] Comment on above: Performed By: #### 2 [id number] #### [facility] [address] [place] [address] Basophils/Leukocytes Auto (Bld) [Pure # fraction] 0.1 E9/L Normal 0.0-0.2 [facility] Comment on above: Performed By: #### 2 [id number] #### [facility] [address] [place] [address] Eosinophils (Bld) [#/Vol] 0.2 E9/L Normal 0.0-0.5 [facility] Comment on above: Performed By: #### 2 [id number] #### [facility] [address] [place] [address] Eosinophils/100 WBC (Bld) 1.4 % Normal 0.0-8.0 [facility] Comment on above: Performed By: #### 2 [id number] #### [facility] [address] [place] [address] Erythrocyte distribution width (RBC) [Ratio] 20.6 % High 10.9-14.2 [facility] Comment on above: Performed By: #### 2 [id number] #### [facility] [address] [place] [address] Hematocrit (Bld) [Volume fraction] 26.6 % Low 34.0-46.0 [facility] Comment on above: Performed By: #### 2 [id number] #### [facility] [address] [place] [address] Hemoglobin (Bld) [Mass/Vol] 7.6 g/dL Low 12.0-16.0 [facility] Comment on above: Performed By: #### 2 [id number] #### [facility] [address] [place] [address] Hypochromia Auto Ql (Bld) PRESENT Invalid Interpretation Code [facility] Comment on above: Performed By: #### 2 [id number] #### [facility] [address] [place] [address] Lymphocytes (Bld) [#/Vol] 1.5 E9/L Normal 1.0-4.0 [facility] Comment on above: Performed By: #### 2 [id number] #### [facility] [address] [place] [address] Lymphocytes/100 WBC (Bld) 8.5 % Low 14.0-50.0 [facility] Comment on above: Performed By: #### 2 [id number] #### [facility] [address] [place] [address] MCH (RBC) [Entitic mass] 20.0 pg Low 27.0-34.0 [facility] Comment on above: Performed By: #### 2 [id number] #### [facility] [address] [place] [address] MCHC (RBC) [Mass/Vol] 28.6 g/dL Low 31.4-36.0 [facility] Comment on above: Performed By: #### 2 [id number] #### [facility] [address] [place] [address] MCV (RBC) [Entitic vol] 69.9 fL Low 80.0-100.0 [facility] Comment on above: Performed By: #### 2 [id number] #### [facility] [address] [place] [address] Microcytes Ql (Bld) PRESENT Invalid Interpretation Code [facility] Comment on above: Performed By: #### 2 [id number] #### [facility] [address] [place] [address] Monocytes (Bld) [#/Vol] 1.3 E9/L High 0.2-1.0 [facility] Comment on above: Performed By: #### 2 [id number] #### [facility] [address] [place] [address] Neutrophils (Bld) [#/Vol] 14.6 E9/L High 2.0-7.5 [facility] Comment on above: Performed By: #### 2 [id number] #### [facility] [address] [place] [address] Neutrophils/100 WBC (Bld) 82.7 % High 36.0-75.0 [facility] Comment on above: Performed By: #### 2 [id number] #### [facility] [address] [place] [address] Platelet 486.0 E9/L Normal 150.0-500. 0 [facility] Comment on above: Performed By: #### 2 [id number] #### [facility] [address] [place] [address] Platelet mean volume (Bld) [Entitic vol] 8.8 fL Normal 6.4-10.8 [facility] Comment on above: Performed By: #### 2 [id number] #### [facility] [address] [place] [address] Polychromasia LM Ql (Bld) PRESENT Invalid Interpretation Code [facility] Comment on above: Performed By: #### 2 [id number] #### [facility] [address] [place] [address] RBC (Bld) [#/Vol] 3.8 E12/L Low 4.3-5.9 [facility] Comment on above: Performed By: #### 2 [id number] #### [facility] [address] [place] [address] RBC size Nom (Bld) SEE MORPHOLOGY Invalid Interpretation Code [facility] Comment on above: Performed By: #### 2 [id number] #### [facility] [address] [place] [address] WBC corrected for nucl RBC Auto (Bld) [#/Vol] 17.6 E9/L High 4.0-11.0 [facility] Comment on above: Performed By: #### 2 [id number] #### [facility] [address] [place] [address] CHEMISTRYOrdered By: SYSTEM SYSTEM on 08-20-2023 Ferritin [Mass/Vol] 173 ng/mL Normal 11 - 307 ng/mL [facility] Chem Iron [Mass/Vol] 119 ug/dL Normal 35 - 153 mcg/dL [facility] Iron binding capacity [Mass/Vol] 372 ug/dL Normal 250 - 400 mcg/dL [facility] Chem Transferrin [Mass/Vol] 266 mg/dL Normal 200 - 370 mg/dL Rem[facility] Chem Consent for Treatmenton 08-04 Consent for Treatment [id number]#[id number] Normal [facility] Ferritinon 08-20-2023 Ferritin [Mass/Vol] 173 ng/mL Normal 11-307 [facility] Comment on above: Performed By: #### 2 [id number] #### [facility] [address] [place] [address] HEMATOLOGYOrdered By: SYSTEM SYSTEM on 08-20-2023 Anisocytosis Ql (Bld) PRESENT *NA* (08/20/23 10:18 AM) Invalid Interpretation Code [facility]e Basophils/100 WBC (Bld) 0.3 % Normal 0.0 - 2.0 % [facility] Basophils/Leukocytes Auto (Bld) [Pure # fraction] 0.1 E9/L Normal 0.0 - 0.2 E9/L [facility] Eosinophils (Bld) [#/Vol] 0.2 E9/L Normal 0.0 - 0.5 E9/L [facility] Eosinophils/100 WBC (Bld) 1.4 % Normal 0.0 - 8.0 % [facility] Erythrocyte distribution width (RBC) [Ratio] 20.6 % High 10.9 - 14.2 % [facility] Hematocrit (Bld) [Volume fraction] 26.6 % Low 34.0 - 46.0 % [facility] Hemoglobin (Bld) [Mass/Vol] 7.6 g/dL Low 12.0 - 16.0 gm/dL [facility] Hypochromia Auto Ql (Bld) PRESENT *NA* (08/20/23 10:18 AM) Invalid Interpretation Code [facility] Lymphocytes (Bld) [#/Vol] 1.5 E9/L Normal 1.0 - 4.0 E9/L [facility] Lymphocytes/100 WBC (Bld) 8.5 % Low 14.0 - 50.0 % [facility] MCH (RBC) [Entitic mass] 20.0 pg Low 27.0 - 34.0 pg [facility] MCHC (RBC) [Mass/Vol] 28.6 g/dL Low 31.4 - 36.0 gm/dL [facility] MCV (RBC) [Entitic vol] 69.9 fL Low 80.0 - 100.0 fL [facility] Microcytes Ql (Bld) PRESENT *NA* (08/20/23 10:18 AM) Invalid Interpretation Code [facility] Monocytes (Bld) [#/Vol] 1.3 E9/L High 0.2 - 1.0 E9/L [facility] Monocytes/100 WBC (Bld) 7.1 % Normal 4.0 - 14.0 % [facility] Neutrophils (Bld) [#/Vol] 14.6 E9/L High 2.0 - 7.5 E9/L [facility] Neutrophils/100 WBC (Bld) 82.7 % High 36.0 - 75.0 % [facility] Platelet 486.0 E9/L Normal 150.0 - 500.0 E9/L [facility] Platelet mean volume (Bld) [Entitic vol] 8.8 fL Normal 6.4 - 10.8 fL [facility] Polychromasia LM Ql (Bld) PRESENT *NA* (08/20/23 10:18 AM) Invalid Interpretation Code [facility] RBC (Bld) [#/Vol] 3.8 E12/L Low 4.3 - 5.9 E12/L [facility] RBC size Nom (Bld) SEE MORPHOLOGY *NA* (08/20/23 10:18 AM) Invalid Interpretation Code [facility] WBC corrected for nucl RBC Auto (Bld) [#/Vol] 17.6 E9/L High 4.0 - 11.0 E9/L [facility] Ironon 08-20-2023 Iron [Mass/Vol] 119 microgram/dL Normal 35-153 [facility] Comment on above: Performed By: #### 2 [id number] #### [facility] [address] [place] [address] Physician Orderon 08-20-2023 Physician Order [id number]#[id number] Normal [facility] TIBC Calculatedon 08-20-2023 Iron binding capacity [Mass/Vol] 372 microgram/dL Normal 250-400 [facility] Comment on above: Performed By: #### 1 [id number] #### [facility] [address] [place] [address] Transferrin [Mass/Vol] 266 mg/dL Normal 200-370 [facility] Comment on above: Performed By: #### 1 [id number] #### [facility] [address] [place] [address] Consent for Treatmenton 08-04 Consent for Treatment [id number] Normal [facility] Path. Reviewon 08-18-2023 Path Review Peripheral Blood Smear: Invalid Interpretation Code [facility] Comment on above: Order Comment: Order added by Discern Expert Performed By: #### 2 715822, 22557112, 8252679, 09578341, 0626426 ####[facility] [address] [place] [address] CBC w/ Auto Diffon 4 Anisocytosis Ql (Bld) PRESENT Invalid Interpretation Code [facility] Comment on above: Performed By: #### 2 734405, 88279763, 7834976, 97121032, 2735487 #### [facility] [address] [place] [address] Basophils/100 WBC (Bld) 0.5 % Normal 0.0-2.0 [facility] Comment on above: Performed By: #### 2 876533, 70040920, 6528923, 93637652, 8147978 #### [facility] [address] [place] [address] Basophils/Leukocytes Auto (Bld) [Pure # fraction] 0.1 E9/L Normal 0.0-0.2 [facility] Comment on above: Performed By: #### 2 652245, 69518355, 0620984, 85090698, 0532870 #### [facility] [address] [place] [address] Eosinophils (Bld) [#/Vol] 0.2 E9/L Normal 0.0-0.5 [facility] Comment on above: Performed By: #### 2 654652, 71325889, 1119514, 25176934, 8973533 #### [facility] [address] [place] [address] Eosinophils/100 WBC (Bld) 1.6 % Normal 0.0-8.0 [facility] Comment on above: Performed By: #### 2 161476, 72707655, 2488616, 66485284, 3482782 #### [facility] [address] [place] [address] Erythrocyte distribution width (RBC) [Ratio] 19.7 % High 10.9-14.2 [facility] Comment on above: Performed By: #### 2 420948, 97379856, 4746158, 58126234, 3517273 #### [facility] [address] [place] [address] Hematocrit (Bld) [Volume fraction] 23.4 % Low 34.0-46.0 [facility] Comment on above: Performed By: #### 2 752217, 72098199, 9354753, 25859299, 1368088 #### [facility] [address] [place] [address] Hemoglobin (Bld) [Mass/Vol] 6.9 g/dL Abnormal 12.0-16.0 [facility] Comment on above: Result Comment: Crit ical Result Verified by Repeat Analysis Results called to YANE SAAVEDRA/GEORGE MCCLANI by and read back on 08/17/2023 11:48:22. Performed By: #### 2 436226, 21668990, 7038107, 31147473, 5171442 #### [facility] [address] [place] [address] Hypochromia Auto Ql (Bld) PRESENT Invalid Interpretation Code [facility] Comment on above: Performed By: #### 2 130552, 84567152, 0093344, 89561388, 6018384 #### [facility] [address] [place] [address] Lymphocytes (Bld) [#/Vol] 1.7 E9/L Normal 1.0-4.0 [facility] Comment on above: Performed By: #### 2 695316, 89674814, 3727345, 88739743, 5798886 #### [facility] [address] [place] [address] Lymphocytes/100 WBC (Bld) 10.8 % Low 14.0-50.0 [facility] Comment on above: Performed By: #### 2 601441, 77825284, 3148377, 55472127, 7086765 #### [facility] [address] [place] [address] MCH (RBC) [Entitic mass] 19.6 pg Low 27.0-34.0 [facility] Comment on above: Performed By: #### 2 349683, 72933407, 7492794, 89066838, 6154076 #### [facility] [address] [place] [address] MCHC (RBC) [Mass/Vol] 29.5 g/dL Low 31.4-36.0 [facility] Comment on above: Performed By: #### 2 858639, 78416528, 1067142, 96966576, 1387777 #### [facility] [address] [place] [address] MCV (RBC) [Entitic vol] 66.5 fL Low 80.0-100.0 [facility] Comment on above: Performed By: #### 2 573257, 18610955, 5877407, 61305447, 1796339 #### [facility] [address] [place] [address] Microcytes Ql (Bld) PRESENT Invalid Interpretation Code [facility] Comment on above: Performed By: #### 2 429826, 39195965, 0852742, 93439031, 0001962 #### [facility] [address] [place] [address] Monocytes (Bld) [#/Vol] 1.1 E9/L High 0.2-1.0 [facility] Comment on above: Performed By: #### 2 237820, 02596268, 6076852, 50728962, 5433928 #### [facility] [address] [place] [address] Neutrophils (Bld) [#/Vol] 12.2 E9/L High 2.0-7.5 [facility] Comment on above: Performed By: #### 2 729279, 63389653, 4607150, 61415135, 9882299 #### [facility] [address] [place] [address] Neutrophils/100 WBC (Bld) 80.1 % High 36.0-75.0 [facility] Comment on above: Performed By: #### 2 526018, 82246585, 7462420, 15542975, 9874022 #### [facility] [address] [place] [address] Platelet 397.0 E9/L Normal 150.0-500. 0 [facility] Comment on above: Performed By: #### 2 111172, 56182359, 1263758, 28904692, 8805297 #### [facility] [address] [place] [address] Platelet mean volume (Bld) [Entitic vol] 8.3 fL Normal 6.4-10.8 [facility] Comment on above: Performed By: #### 2 689519, 86780344, 2209703, 46117443, 2764095 #### [facility] [address] [place] [address] RBC (Bld) [#/Vol] 3.5 E12/L Low 4.3-5.9 [facility] Comment on above: Performed By: #### 2 211094, 62525605, 5337909, 26396612, 4847783 #### [facility] [address] [place] [address] RBC size Nom (Bld) SEE MORPHOLOGY Invalid Interpretation Code [facility] Comment on above: Performed By: #### 2 888603, 33351608, 0137495, 23475248, 1350678 #### [facility] [address] [place] [address] WBC corrected for nucl RBC Auto (Bld) [#/Vol] 15.3 E9/L High 4.0-11.0 [facility] Comment on above: Performed By: #### 2 604671, 82069856, 4245803, 19559132, 7949596 #### [facility] [address] [place] [address] CHEMISTRYOrdered By: SYSTEM SYSTEM on 08-17-2023 Ferritin [Mass/Vol] 5 ng/mL Low 11 - 307 ng/mL [facility] Iron [Mass/Vol] 157 ug/dL High 35 - 153 mcg/dL [facility] Iron binding capacity [Mass/Vol] 372 ug/dL Normal 250 - 400 mcg/dL [facility] Transferrin [Mass/Vol] 266 mg/dL Normal 200 - 370 mg/dL [facility] Consent for Treatmenton 08-04 Consent for Treatment [id number]#[id number] Normal [facility] Ferritinon 08-17-2023 Ferritin [Mass/Vol] 5 ng/mL Low 11-307 [facility] Comment on above: Performed By: #### 2 151447, 39111329, 3891598, 76582780, 7146501 #### [facility] [address] [place] [address] HEMATOLOGYOrdered By: SYSTEM SYSTEM on 08-17-2023 Anisocytosis Ql (Bld) PRESENT *NA* (08/17/23 10:37 AM) Invalid Interpretation Code [facility] Basophils/100 WBC (Bld) 0.5 % Normal 0.0 - 2.0 % [facility] Basophils/Leukocytes Auto (Bld) [Pure # fraction] 0.1 E9/L Normal 0.0 - 0.2 E9/L [facility] Eosinophils (Bld) [#/Vol] 0.2 E9/L Normal 0.0 - 0.5 E9/L [facility] Eosinophils/100 WBC (Bld) 1.6 % Normal 0.0 - 8.0 % [facility] Erythrocyte distribution width (RBC) [Ratio] 19.7 % High 10.9 - 14.2 % [facility] Hematocrit (Bld) [Volume fraction] 23.4 % Low 34.0 - 46.0 % [facility] Hemoglobin (Bld) [Mass/Vol] 6.9 g/dL Invalid Interpretation Code 12.0 - 16.0 gm/dL [facility] Comment on above: Result Comment: Crit ical Result Verified by Repeat Analysis Results called to YANE SAAVEDRA/GEORGE MCCLAIN by LENI and read back on 08/17/2023 11:48:22. Hypochromia Auto Ql (Bld) PRESENT *NA* (08/17/23 10:37 AM) Invalid Interpretation Code [facility] Lymphocytes (Bld) [#/Vol] 1.7 E9/L Normal 1.0 - 4.0 E9/L [facility] Lymphocytes/100 WBC (Bld) 10.8 % Low 14.0 - 50.0 % [facility] MCH (RBC) [Entitic mass] 19.6 pg Low 27.0 - 34.0 pg [facility] MCHC (RBC) [Mass/Vol] 29.5 g/dL Low 31.4 - 36.0 gm/dL [facility] MCV (RBC) [Entitic vol] 66.5 fL Low 80.0 - 100.0 fL [facility] Microcytes Ql (Bld) PRESENT *NA* (08/17/23 10:37 AM) Invalid Interpretation Code [facility] Monocytes (Bld) [#/Vol] 1.1 E9/L High 0.2 - 1.0 E9/L [facility] Monocytes/100 WBC (Bld) 7.0 % Normal 4.0 - 14.0 % [facility] Neutrophils (Bld) [#/Vol] 12.2 E9/L High 2.0 - 7.5 E9/L [facility] Neutrophils/100 WBC (Bld) 80.1 % High 36.0 - 75.0 % [facility] Platelet 397.0 E9/L Normal 150.0 - 500.0 E9/L [facility] Platelet mean volume (Bld) [Entitic vol] 8.3 fL Normal 6.4 - 10.8 fL [facility] RBC (Bld) [#/Vol] 3.5 E12/L Low 4.3 - 5.9 E12/L [facility] RBC size Nom (Bld) SEE MORPHOLOGY *NA* (08/17/23 10:37 AM) Invalid Interpretation Code [facility] WBC corrected for nucl RBC Auto (Bld) [#/Vol] 15.3 E9/L High 4.0 - 11.0 E9/L [facility] Insulin Lvlon 08-17-2023 Insulin Qn 27.5 u[IU]/mL High 2.6-24.9 [facility] Comment on above: Result Comment: Perf ormed at: [facility] [address] [id number] PhD Tete Murillo Performed By: #### 2 577356, 7200236, 8856822, 24409406, 1913668, 672475253, 44243966 ####[facility] [address] [place] [address] Ironon 08-17-2023 Iron [Mass/Vol] 157 microgram/dL High 35-153 [facility] Comment on above: Performed By: #### 2 851202, 46202780, 7900817, 34719287, 2371977 #### [facility] [address] [place] [address] Physician Orderon 08-17-2023 Physician Order [id number]#1.00TIFF Normal [facility] Physician Order [id number]#1.00TIFF Normal [facility] T3 Freeon 08-17-2023 Free T3 [Mass/Vol] 2.9 pg/mL Invalid Interpretation Code 2.0-4.4 [facility] Comment on above: Result Comment: Perf ormed at: [facility] [place] [address] [place], [place] [id number] PhD Tete Murillo Performed By: #### 2 168374, 2451342, 8839134, 98726679, 9846660, 985724833, 97176991 ####[facility] [address] [place] [address] TIBC Calculatedon 08-17-2023 Iron binding capacity [Mass/Vol] 372 microgram/dL Normal 250-400 [facility] Comment on above: Performed By: #### 2 390632, 18241788, 3782755, 78542058, 9576173 ####[facility] [address] [place] [address] Transferrin [Mass/Vol] 266 mg/dL Normal 200-370 [facility] Comment on above: Performed By: #### 2 531124, 34687766, 0273687, 42307214, 9834072 ####[facility] [address] [place] [address] CBC w/ Auto Diffon 4 Hemoglobin (Bld) [Mass/Vol] 6.9 g/dL Abnormal 12.0-16.0 [facility] Comment on above: Result Comment: Slid e review performed Result Verified by Repeat Analysis Results Called To Doctor Yane By [email or web address] And Read Back For Confirmation On 08/15/2023 09:27:13 EDT. Performed By: #### 2 118869, 7708475, 4168885, 02067323, 5973136, 204946176, 84291961 ####[address] [address] CBC w/ Auto Diffon 4 Anisocytosis Ql (Bld) PRESENT Invalid Interpretation Code [facility] Comment on above: Performed By: #### 2 755320, 9042201, 3944645, 85760379, 2886214, 009890553, 59339087 ####[address] [address] Elliptocytes LM Ql (Bld) PRESENT Invalid Interpretation Code [facility] Comment on above: Performed By: #### 2 992124, 0807791, 9953095, 64425892, 8381436, 446633523, 84482612 ####[address] [address] Hypochromia Auto Ql (Bld) PRESENT Invalid Interpretation Code [facility] Comment on above: Performed By: #### 2 477867, 2599998, 7367939, 99096772, 2740398, 196658204, 19678474 ####[address] [place] [address] Lymphocytes (Bld) [#/Vol] 0.3 E9/L Low 1.0-4.0 [facility] Comment on above: Performed By: #### 2 740750, 0683331, 2402243, 66270270, 5222382, 240706420, 98411079 ####[facility] [address] [place] [address] Microcytes Ql (Bld) PRESENT Invalid Interpretation Code [facility] Comment on above: Performed By: #### 2 145733, 7476613, 0532614, 25679655, 5374240, 067721562, 78304638 ####[address] [place] [address] RBC size Nom (Bld) SEE MORPHOLOGY Invalid Interpretation Code [facility] Comment on above: Performed By: #### 2 285310, 5087039, 2430470, 79436281, 8734520, 793168159, 76970266 ####[address] [place] [address] Erythrocyte distribution width (RBC) [Ratio] 19.5 % High 10.9-14.2 [facility] Comment on above: Performed By: #### 2 295619, 3113579, 4080220, 87532011, 2509216, 980846903, 05352498 ####[address] [place] [address] Hematocrit (Bld) [Volume fraction] 23.1 % Low 34.0-46.0 [facility] Comment on above: Performed By: #### 2 799152, 2493276, 6794863, 58296288, 1266590, 354654786, 35099266 ####[address] [place] [address] MCH (RBC) [Entitic mass] 20.0 pg Low 27.0-34.0 [facility] Comment on above: Result Comment: Resu lt Verified by Repeat Analysis Performed By: #### 2 669525, 9364397, 8503336, 70179130, 7883906, 763514820, 72431760 ####[address] [place] [address] MCHC (RBC) [Mass/Vol] 29.8 g/dL Low 31.4-36.0 [facility] Comment on above: Performed By: #### 2 590858, 5337637, 6632332, 10543467, 3761091, 415649834, 80562848 ####[facility] [address] [place] [address] MCV (RBC) [Entitic vol] 67.0 fL Low 80.0-100.0 [facility] Comment on above: Performed By: #### 2 727372, 4258215, 9738201, 31243950, 8271086, 223341111, 45028492 ####[address] [place] [address] Platelet mean volume (Bld) [Entitic vol] 8.4 fL Normal 6.4-10.8 [facility] Comment on above: Performed By: #### 2 342554, 2332072, 2040565, 51143207, 5559062, 313610035, 74667307 ####[address] [address] Platelets (Bld) [#/Vol] 405.0 E9/L Normal 150.0-500. 0 [facility] Comment on above: Performed By: #### 2 580096, 4532129, 5467116, 71324931, 0113690, 196692653, 97334080 ####[address] [address] RBC (Bld) [#/Vol] 3.4 E12/L Low 4.3-5.9 [facility] Comment on above: Performed By: #### 2 799146, 6868654, 0580353, 78778806, 3175001, 818891489, 22359625 ####[address] [address] WBC corrected for nucl RBC Auto (Bld) [#/Vol] 13.0 E9/L High 4.0-11.0 [facility] Comment on above: Performed By: #### 2 176510, 7581587, 3821951, 06970958, 8001151, 172660684, 86592048 ####[address] [place] [address] Basophils (Bld) [#/Vol] 0.0 E9/L Normal 0.0-0.2 [facility] Comment on above: Performed By: #### 2 294466, 0413668, 6294255, 42382958, 7318329, 275441344, 80649366 ####[address] [address] Eosinophils (Bld) [#/Vol] 0.3 E9/L Normal 0.0-0.5 [facility] Comment on above: Performed By: #### 2 397703, 1806636, 1655364, 86152258, 0341342, 937605047, 02708645 ####[address] [address] Eosinophils/100 WBC (Bld) 2.0 % Normal 0.0-8.0 [facility] Comment on above: Performed By: #### 2 711388, 1213232, 0059340, 73253428, 8220475, 385258424, 74264921 ####[address] [address] Lymphocytes/100 WBC (Bld) 2.0 % Low 14.0-50.0 [facility] Comment on above: Performed By: #### 2 036881, 2657636, 3139609, 32295805, 6428305, 688932372, 00481634 ####[address] [address] Monocytes (Bld) [#/Vol] 0.6 E9/L Normal 0.2-1.0 [facility] Comment on above: Performed By: #### 2 317805, 6046571, 1444853, 81112159, 8592966, 891726412, 27659307 ####[address] [address] Neutrophils (Bld) [#/Vol] 11.8 E9/L Invalid Interpretation Code [facility] Comment on above: Performed By: #### 2 297433, 6178341, 6112185, 71160979, 3839934, 415788522, 30359162 ####[facility] [address] [place] [address] Segmented neutrophils/100 WBC (Bld) 91 % High 50-70 [facility] Comment on above: Performed By: #### 2 663106, 3404024, 6724595, 29847539, 5472605, 563240351, 49424145 ####[facility] [address] [place] [address] CHEMISTRYOrdered By: SYSTEM SYSTEM on 08-15-2023 Albumin [Mass/Vol] 3.9 g/dL Normal 3.3 - 5.0 gm/dL [facility] Albumin/Globulin [Mass ratio] 1.5 {ratio} Normal 1.1 - 2.2 [facility] ALP [Catalytic activity/Vol] 89 [iU]/d Normal 21 - 98 Int._Unit/ L [facility] ALT No additional P-5'-P [Catalytic activity/Vol] 11 [iU]/d Normal 6 - 46 Int._Unit/ L [facility] Anion gap [Moles/Vol] 11 mmol/L Normal 6 - 16 mEq/L [facility] AST [Catalytic activity/Vol] 12 [iU]/d Normal 5 - 43 Int._Unit/ L [facility] Bilirubin [Mass/Vol] 0.4 mg/dL Normal 0.0 - 1 .1 mg/dL [facility] Calcium [Mass/Vol] 8.8 mg/dL Low 8.9 - 11. 1 mg/dL [facility] Chloride [Moles/Vol] 110 mmol/L Normal 101 - 1 11 mmol/L [facility] Cholesterol [Mass/Vol] 138 mg/dL Normal 120 - 200 mg/dL [facility] Cholesterol in HDL [Mass/Vol] 35 mg/dL Invalid Interpretation Code [facility] Comment on above: Result Comment: '>= 60 LOW RISK' '<= 40 HIGH RISK' Cholesterol in LDL [Mass/Vol] 93 mg/dL Normal <=129mg/dL [facility] Cholesterol in VLDL [Mass/Vol] 17 mg/dL Normal 7 - 40 mg/dL [facility] CO2 [Moles/Vol] 26 mmol/L Normal 21 - 31 mmol/L [facility] Creatinine [Mass/Vol] 0.7 mg/dL Normal 0.5 - 1.3 mg/dL [facility] eGFR 101 mL/min/1.73 m2 Normal >=59mL/mi n /1.73 m2 [facility] Globulin (S) [Mass/Vol] 2.6 g/dL Normal 1.4 - 4.0 gm/dL [facility] Glucose [Mass/Vol] 132 mg/dL Normal 55 - 199 mg/dL [facility] Iron [Mass/Vol] 27 ug/dL Low 35 - 153 mcg/dL [facility] Potassium [Moles/Vol] 4.1 mmol/L Normal 3.5 - 5.3 mmol/L [facility] Protein [Mass/Vol] 6.5 g/dL Normal 6.0 - 7.8 gm/dL [facility] Sodium [Moles/Vol] 143 mmol/L Normal 135 - 145 mmol/L [facility] T4 [Mass/Vol] 9.2 ug/dL High 4.6 - 9.1 mcg/dL [facility] Triglyceride [Mass/Vol] 87 mg/dL Normal <=149mg/dL [facility] TSH Qn 2.38 m[IU]/L Normal 0.34 - 5.60 mcIU/mL [facility] Urea nitrogen [Mass/Vol] 16 mg/dL Normal 5 - 21 mg/dL [facility] Urea nitrogen/Creatinine [Mass ratio] 23 mg/mg High 10 - 20 [facility] CHEMISTRYOrdered By: Simin Varma on 08-15-2023 HbA1c (Bld) [Mass fraction] 6.1 % High <=5.9% [facility] CMPon 08-15-2023 Albumin [Mass/Vol] 3.9 g/dL Normal 3.3-5.0 [facility] Comment on above: Performed By: #### 2 457099, 0665848, 8395765, 29368796, 9110717, 500695337, 05788627 ####[facility] [address] [place] [address] Albumin/Globulin (S) [Mass conc ratio] 1.5 Normal 1.1-2.2 [facility] Comment on above: Performed By: #### 2 819577, 9631908, 1828282, 16295386, 7835272, 247693206, 24673820 ####[address] [place] [address] ALP [Catalytic activity/Vol] 89 Int._Unit/L Normal 21-98 [facility] Comment on above: Performed By: #### 2 361425, 7396349, 8478247, 20218702, 0063828, 474924605, 10717145 ####[address] [address] ALT No additional P-5'-P [Catalytic activity/Vol] 11 Int._Unit/L Normal 6-46 [facility] Comment on above: Performed By: #### 2 867945, 2593522, 3705052, 79111137, 1315926, 904792309, 47001603 ####[address] [address] Anion gap [Moles/Vol] 11 mmol/L Normal 6-16 [facility] Comment on above: Performed By: #### 2 505435, 3052625, 9644927, 48271774, 1779881, 326431149, 47009515 ####[address] [address] AST [Catalytic activity/Vol] 12 Int._Unit/L Normal 5-43 [facility] Comment on above: Performed By: #### 2 152308, 5307760, 2715612, 43150693, 9131432, 850623334, 19546615 ####[facility] [address] [place] [address] Bilirubin [Mass/Vol] 0.4 mg/dL Normal 0.0-1.1 [facility] Comment on above: Performed By: #### 2 702482, 4179676, 4788749, 99631102, 4347297, 305115097, 31187648 ####[facility] [address] [place] [address] Calcium [Mass/Vol] 8.8 mg/dL Low 8.9-11.1 [facility] Comment on above: Performed By: #### 2 228155, 3249532, 2966680, 91345830, 7417687, 995473063, 22955130 ####[facility] [address] [place] [address] Chloride [Moles/Vol] 110 mmol/L Normal 101-111 [facility] Comment on above: Performed By: #### 2 068420, 0659758, 3948625, 58637696, 2500659, 478968406, 61798948 ####[address] [place] [address] CO2 [Moles/Vol] 26 mmol/L Normal 21-31 [facility] Comment on above: Performed By: #### 2 714045, 2094329, 6511041, 43733246, 8465575, 881809242, 45033066 ####[facility] [address] [place] [address] Creatinine [Mass/Vol] 0.7 mg/dL Normal 0.5-1.3 [facility] Comment on above: Performed By: #### 2 031122, 2744037, 4820092, 19071843, 4620834, 711650374, 98144141 ####[facility] [address] [place] [address] Globulin (S) [Mass/Vol] 2.6 g/dL Normal 1.4-4.0 [facility] Comment on above: Performed By: #### 2 [id number], 1232116, 0191822, 93269056, 8205432, [id number], [id number] ####[facility] [address] [place] [address] Glucose [Mass/Vol] 132 mg/dL Normal 55-199 [facility] Comment on above: Performed By: #### 2 368967, 9921325, 9359545, 15135248, 3795608, [id number], [id number] ####[facility] [address] [place] [address] Potassium [Moles/Vol] 4.1 mmol/L Normal 3.5-5.3 [facility] Comment on above: Performed By: #### 2 558487, 8776809, 4722255, 20386527, 6866769, [id number], [id number] ####[facility] [address] [place] [address] Protein [Mass/Vol] 6.5 g/dL Normal 6.0-7.8 [facility] Comment on above: Performed By: #### 2 082850, 1691386, 2290333, 37773145, 5488643, [id number], 37994179 ####[facility] [address] [place] [address] Sodium [Moles/Vol] 143 mmol/L Normal 135-145 [facility] Comment on above: Performed By: #### 2 225792, 8579272, 2502223, 44566513, 7597975, 409074556, 62671622 ####[facility] [address] [place] [address] Urea nitrogen [Mass/Vol] 16 mg/dL Normal 5-21 [facility] Comment on above: Performed By: #### 2 022883, 0454195, 2230328, 01034963, 3650117, 331701905, 04095694 ####[facility] [address] [place] [address] Urea nitrogen/Creatinine [Mass ratio] 23 No Units High 10-20 [facility] Comment on above: Performed By: #### 2 884432, 2411245, 2311970, 30955179, 5063342, [id number], 31798114 ####[facility] [address] [place] [address] Consent for Treatmenton 08-04 Consent for Treatment [id number]#[id number] Normal [facility] HEMATOLOGYOrdered By: SYSTEM SYSTEM on 08-15-2023 Anisocytosis Ql (Bld) PRESENT *NA* (08/15/23 9:03 AM) Invalid Interpretation Code Remisol Heme Basophils (Bld) [#/Vol] 0.0 E9/L Normal 0.0 - 0.2 E9/L Remisol Heme Basophils/100 WBC (Bld) 0.0 % Normal 0.0 - 2.0 % Remisol Heme Elliptocytes LM Ql (Bld) PRESENT *NA* (08/15/23 9:03 AM) Invalid Interpretation Code Remisol Heme Eosinophils (Bld) [#/Vol] 0.3 E9/L Normal 0.0 - 0.5 E9/L [facility] Eosinophils/100 WBC (Bld) 2.0 % Normal 0.0 - 8.0 [facility] Erythrocyte distribution width (RBC) [Ratio] 19.5 % High 10.9 - 14.2 % [facility] Hematocrit (Bld) [Volume fraction] 23.1 % Low 34.0 - 46.0 % [facility] Hemoglobin (Bld) [Mass/Vol] 6.9 g/dL Invalid Interpretation Code 12.0 - 16.0 gm/dL [facility] Comment on above: Result Comment: Slid e review performed Result Verified by Repeat Analysis Hypochromia Auto Ql (Bld) PRESENT *NA* (08/15/23 9:03 AM) Invalid Interpretation Code [facility]e Lymphocytes (Bld) [#/Vol] 0.3 E9/L Low 1.0 - 4.0 E9/L [facility] Lymphocytes/100 WBC (Bld) 2.0 % Low 14.0 - 50.0 % [facility] MCH (RBC) [Entitic mass] 20.0 pg Low 27.0 - 34.0 pg [facility] Comment on above: Result Comment: Resu lt Verified by Repeat Analysis MCHC (RBC) [Mass/Vol] 29.8 g/dL Low 31.4 - 36.0 gm/dL [facility] MCV (RBC) [Entitic vol] 67.0 fL Low 80.0 - 100.0 fL [facility] Microcytes Ql (Bld) PRESENT *NA* (08/15/23 9:03 AM) Invalid Interpretation Code Rem[facility]e Monocytes (Bld) [#/Vol] 0.6 E9/L Normal 0.2 - 1.0 E9/L [facility] Monocytes/100 WBC (Bld) 5.0 % Normal 4.0 - 14.0 % [facility] Neutrophils (Bld) [#/Vol] 11.8 E9/L Invalid Interpretation Code [facility] Platelet mean volume (Bld) [Entitic vol] 8.4 fL Normal 6.4 - 10.8 fL [facility] Platelets (Bld) [#/Vol] 405.0 E9/L Normal 150.0 - 500.0 E9/L [facility] RBC (Bld) [#/Vol] 3.4 E12/L Low 4.3 - 5.9 E12/L [facility] RBC size Nom (Bld) SEE MORPHOLOGY *NA* (08/15/23 9:03 AM) Invalid Interpretation Code [facility] Segmented neutrophils/100 WBC (Bld) 91 % High 50 - 70 % [facility] WBC corrected for nucl RBC Auto (Bld) [#/Vol] 13.0 E9/L High 4.0 - 11.0 E9/L [facility] [id number] 08-15-2023 HbA1c (Bld) [Mass fraction] 6.1 % High <=5.9 [facility] Comment on above: Performed By: #### 2 327504, 3203269, 9417319, 71273445, 3837063, [id number], 09982717 ####[facility] [address] [place] [address] Ironon 08-15-2023 Iron [Mass/Vol] 27 microgram/dL Low 35-153 [facility] Comment on above: Performed By: #### 1 [id number], 6536704 #### [facility] [address] [place] [address] Lipid Panelon 08-15-2023 Cholesterol [Mass/Vol] 138 mg/dL Normal 120-200 [facility] Comment on above: Performed By: #### 2 474917, 4652019, 9171122, 20607841, 8372058, 010037162, 75825128 ####[facility] [address] [place] [address] Cholesterol in HDL [Mass/Vol] 35 mg/dL Invalid Interpretation Code [facility] Comment on above: Result Comment: '>= 60 LOW RISK' '<= 40 HIGH RISK' Performed By: #### 2 962729, 0163946, 8972839, 68765027, 2630570, 770083490, 69934761 ####[facility] [address] [place] [address] Cholesterol in LDL [Mass/Vol] 93 mg/dL Normal <=129 [facility] Comment on above: Performed By: #### 2 239927, 6070885, 3087423, 25296531, 4190636, 101852566, 76117931 ####[facility] [address] [place] [address] Cholesterol in VLDL [Mass/Vol] 17 mg/dL Normal 7-40 [facility] Comment on above: Performed By: #### 2 361283, 0812175, 0520493, 07593177, 5653390, 835360969, 71754316 ####[facility] [address] [place] [address] Triglyceride [Mass/Vol] 87 mg/dL Normal <=149 [facility] Comment on above: Performed By: #### 2 008365, 5218349, 5835472, 29942526, 9203295, 919172384, 68157150 ####[facility] [address] [place] [address] Physician Orderon 08-15-2023 Physician Order [id number]#1.00TIFF Normal [facility] T4 & TSHon 08-15-2023 TSH Qn 2.38 m[IU]/L Normal 0.34-5.60 [facility] Comment on above: Performed By: #### 1 6751795, 2511381 #### [facility] [address] [place] [address] T4 [Mass/Vol] 9.2 microgram/dL High 4.6-9.1 [facility] Comment on above: Performed By: #### 1 3798217, 4585350 #### [facility] [address] [place] [address] eGFRon 08-15-2023 eGFR 101 mL/min/1.73 m2 Normal >=59 [facility] Comment on above: Order Comment: Order added by Discern Expert. Performed By: #### 2 593961, 5415870, 3305226, 44652328, 9468249, 364943089, 73864420 ####[facility] [address] [place] [address] Consent for Treatmenton 07-05 Consent for Treatment [id number]#1.00TIFF Normal [facility] US Breast Unilateral Lt Comp leteon 07-15-2023 US Breast Unilateral Lt Complete Exam Date/Time: 07/15/2023 15:22 EDT Reason for Exam: R92.8 Report IMPRESSION: BI-RADS CATEGORY 3: PROBABLY BENIGN. FOLLOW-UP DIAGNOSTIC LEFT MAMMOGRAM AND ULTRASOUND OF THE LEFT BREAST IN 6 MONTHS ARE RECOMMENDED. CLINICAL HISTORY: R92.8. COMPARISON: Mammogram of 06/29/2023. COMMENT: An ultrasound was obtained at all clock face positions and in the central/ retroareolar region of the left breast. At 1:00, there is an ovoid nodule, wider than tall, that measures approximately 9 x 4 x 6 mm. This has a rounded well-defined margin and is of uniform hypoechogenicity. Also at 1:00, there is a small ovoid nodule, wider than tall, measures approximately 5 x 4 x 5 mm. This has a rounded well-defined margin and is of uniform hypoechogenicity. These are felt to correspond to the nodules noted on the mammograms. The remainder of the left breast is unremarkable on this ultrasound exam. Ordering Provider: JADEN CASTANEDA FINAL REPORT Dictated: 07/15/2023 3:29 pm Stef Langley M.D. Signed (Electronic Signature): 07/15/2023 3:29 pm Signed by: Stef Langley M.D. Transcribed by: NELLA Technologist: JEFERSON Carballo [facility] Physician Orderon 07-08-2023 Physician Order [id number]#1.00TIFF [facility] BD Bone Density DEXAon 06-30 BD Bone Density DEXA Exam Date/Time: 06/29/2023 13:03 EDT Reason for Exam: Z78.0 Report IMPRESSION: BONE DENSITY IS WITHIN NORMAL LIMITS. The NOF/ISD guideline recommend FRAX for postmenopausal patients (not on treatment) if the lowest T-score for Spine(L1-L4), Femur Neck or Femur Total indicates low bone density (T score between -1.0 to -2.5, osteopenia). EXAM: BD Bone Density DEXA DATE: 06/29/2023 12:38 PM CLINICAL HISTORY: Z78.0. COMPARISON: None available. COMMENT: The lumbar spine and both hips were scanned. The mean bone mineral density from L1 to L4 is 1.596 g/cm2 and this value is 3.5 standard of deviation above the standard reference value for a young adult. Bone mineral density of the left femoral neck is 0.955 g/cm2 and this value is -0.6 standard of deviation below the standard reference value. Bone mineral density of the right femoral neck is 0.986 g/cm2 and this value is -0.4 standard of deviation below the standard reference value. These values are within the normal range. RECOMMENDATIONS: 1. All patients should optimize her calcium and vitamin D intake. 2. Consider FDA-approved medical therapies in postmenopausal women and minimal age 50 years and older, based on the following: - hip or vertebral (clinical or morphometric) fracture. - T-score less than or equal to -2.5 at the femoral neck or spine after the appropriate evaluation to exclude secondary causes. - Low bone density (T score between -1.0 and -2.5 at the femoral neck or spine) and a 10 year probability of hip fracture greater than or equal to 3% or a 10-year probability of a major osteoporosis-related fracture greater than or equal to 20% based on FRAX calculation. - Clinician judgment and/or patient preferences may indicate treatment for palpable attenuation fracture probability is above or below these levels. - Further guidance on treatment can be found at the National Osteoporosis Foundation's website: bonesource.org Report 3. Patients with diagnosis of osteoporosis or high risk for fracture. There are irregular bone mineral density tests. For patients eligible for Medicare, routine testing is allowed once every 2 years. Testing frequency can be increased to 1 year for patient's history of rapidly progressing disease, those who are receiving or discontinuing medical therapy to restore bone mass or have additional risk factors. Ordering Provider: JADEN CASTANEDA FINAL REPORT Dictated: 07/01/2023 3:46 pm Levon Gregory MD Signed (Electronic Signature): 07/01/2023 3:46 pm Signed by: Levon Gregory MD Transcribed by: NELLA Technologist: PATTI Carballo [facility] MA Mamm Screen w/CAD if perf and 3D Bilon 07-01-2023 MA Mamm Screen w/CAD if perf and 3D Luke Exam Date/Time: 06/29/2023 12:34 EDT Reason for Exam: Z12.31 Report IMPRESSION: BIRADS 0 - INCOMPLETE, NEED ADDITIONAL IMAGING EVALUATION.RECALL NOW. ULTRASOUND OF THE LEFT BREAST IS RECOMMENDED FOR FURTHER EVALUATION. CLINICAL HISTORY: Z12.31. COMPARISON: None. COMMENT: Routine views and tomosynthesis views of both breasts were obtained. The breasts are almost entirely fatty. There are 5 mm nodular densities in the upper outer left breast at anterior and middle depths, and as this a baseline exam, further evaluation is suggested. There are smaller foci suggesting areas of fat necrosis. No dominant breast mass nor neoplastic calcifications are noted. The examination was reviewed with Computer Aided Detection. Breast Density: No Mammography is very important to your health. The current [employer] and National [employer] Network guidelines recommends annual mammography beginning at age 40. This facility utilizes a reminder system to ensure all patients receive reminder notifications at the appropriate time based on the recommendations of this exam. Board Certified Radiologists. Accredited by the ACR and FDA. Ordering Provider: JADEN CASTANEDA FINAL REPORT Dictated: 07/01/2023 3:43 pm Stef Langley M.D. Signed (Electronic Signature): 07/01/2023 3:43 pm Signed by: Stef Langley M.D. Transcribed by: NELLA Technologist: AHSAN Assessment: BI-RADS Category 0-Incomplete: Need additional imaging evaluation Recommendation: Additional projections [facility] Consent for Treatmenton 06-05 Consent for Treatment [id number]#1.00TIFF Normal [facility] Physician Orderon 06-05-2023 Physician Order [id number]#1.00TIFF Normal [facility] Operative Reporton Operative Report SURGERY DATE: 2023 PREOPERATIVE DIAGNOSIS: Postmenopausal bleeding POSTOPERATIVE DIAGNOSIS: Postmenopausal bleeding including uterine and cervical polyps OPERATION: Dilation and curettage hysteroscopy with MyoSure with polypectomy as well as cervical polypectomy BLOOD LOSS: 10 mL URINE OUTPUT: Yellow and clear FINDINGS: Fluffy-appearing endometrium with multiple endometrial polyps. Please also note prior to procedure, a cervical polyp could also be felt. SPECIMEN: Endometrial and cervical polyp as well as endometrial curettings PROCEDURE: The patient was taken back to the Operating Room where she was given general anesthesia without difficulty. She was prepped and draped in normal sterile fashion after being placed in the dorsal lithotomy position. A weighted speculum was placed into the patient's vagina. A Allen retractor was then used to identify the cervix. At that point, a cervical polyp was identified, was grasped with a ringed forcep and was manually removed. This was then sent off to Pathology. The patient was then sounded roughly to 9 cm. The patient was then dilated using Hegar dilators. The hysteroscope was then passed through the cervix and into the uterus. Upon inspection, a fluffy-appearing endometrium was noted. Multiple endometrial polyps in both ostia were identified. No gross evidence of fibroids or malignancy. The MyoSure apparatus was then passed through the scope and was then engaged and used to remove the polyps. After polyps were removed, endometrial curettings were then obtained also using the MyoSure. The MyoSure apparatus was removed from the patient and the hysteroscope was also removed. All instruments were removed from the patient's vagina. Excellent hemostasis was noted. The patient will be taken out of dorsal lithotomy position and awakened by Anesthesia and taken to Recovery. COUNTS: Sponge, lap and needles counts were correct x2 Elan Quiros Dictated: 04/24/2023 [id number] Transcribed: 04/24/2023 [facility] Comment on above: Result Comment: Elec tronically Signed By: Tai RODRÍGUEZ DO\.br\Date and Time Signed: 05/08/23 16:54 EST IntraOperative Documentson 0 04-28-2023 IntraOperative Documents [id number]#1.00TIFF [facility] Postoperative Documentson Postoperative Documents [id number]#1.00TIFF [facility] Consent for Anesthesiaon Consent for Anesthesia [id number]#1.00TIFF [facility] Discharge Instructionson Discharge Instructions [id number]#1.00TIFF [facility] IntraOperative Documentson 0 04-27-2023 IntraOperative Documents [id number]#1.00TIFF [facility] IntraOperative Documents [id number]#1.00TIFF [facility] Main OR Intraoperative Recor don 04-27-2023 Main OR Intraoperative Record IntraOp Document Type FT Summary Primary Physician: Tai RODRÍGUEZ DO Finalized Date/Time: 04/27/23 08:27:25 Pt. Name: SABRA CARPENTER/Sex: 1965 Female Med Rec #: [id number] Physician: Tai RODRÍGUEZ DO Financial #: [id number] Pt. Type: A Room/Bed: Admit/Disch: 04/24/23 11:32:00 - 04/24/23 16:55:00 Institution: Case Times FT Entry 1 Patient Times In Room 04/24/23 14:20:00 Out Room 04/24/23 15:19:00 Procedure Times Start 04/24/23 14:40:00 Stop 04/24/23 15:15:00 Anesthesia Times Start 04/24/23 14:20:00 Stop 04/24/23 15:19:00 Last Modified By: Bella Vera Ii 04/24/23 15:39:06 General Comments: 04/27/22 Chart opened to review and send charges LRoth CSFA Case Attendance FT Entry 1 Entry 2 Entry 3 Case Attendee Marilyn STANLEY, Polina RODRÍGUEZ DO, Luisa Velasquez Role Performed PHYSICIAN RECRUITER Surgeon - Primary Scrub - Primary Time In 04/24/23 14:20:00 04/24/23 14:20:00 04/24/23 14:20:00 Time Out 04/24/23 15:19:00 04/24/23 15:19:00 04/24/23 15:19:00 Procedure DILATATION and SUCTION DILATATION and SUCTION DILATATION and SUCTION CURETTAGE(.) CURETTAGE(.) CURETTAGE(.) Comments Dr. Gilmore anesthesia quality control supervisor Last Modified By: Bella Vera Ii, Alfons Ii F Letrondo, Alfons Ii F 04/24/23 15:39:08 04/24/23 15:39:08 04/24/23 15:39:08 Entry 4 Entry 5 Case Attendee Marquez Hardin Alfons Ii F Role Performed ECOLOGICAL RISK ASSESSOR Electrical Systems Designer - Primary Time In 04/24/23 14:20:00 04/24/23 14:20:00 Time Out 04/24/23 15:19:00 04/24/23 15:19:00 Procedure DILATATION and SUCTION DILATATION and SUCTION CURETTAGE(.) CURETTAGE(.) Comments assist Last Modified By: Bella Vera Ii, Alfons Ii F 04/24/23 15:39:08 04/24/23 15:39:08 Perioperative Protocols FT Pre-Care Text: Implements protective measures prior to operative or invasive procedure, confirms identity before the operative or invasive procedure, verifies operative procedure, surgical site, and laterality Entry 1 Procedure(s) DILATATION and SUCTION Patient Identity Birthday, ID Band CURETTAGE(.) Verified (select at Check, Patient least 2): Participation Consents / H and P Anesthesia Consent, Operative Site N/A Verified HandP, Surgery/Procedure Marking Verified Consent Surgical Site Yes Laterality Verified n/a Verified Procedure Verified Yes Correct Patient Yes Position Verified Availability Equipment, Medication Prep Dry No Verified (If Applicable) PreOp Antibiotic No Time Out Polina Sanders CRNA, Given Participants Tai RODRÍGUEZ DO, Francis, Jennifer E, Osuna, Alejandro, Letrondo, Alfons Ii F Time Out Complete 04/24/23 14:39:00 Outcomes Met? Yes Last Modified By: Bella Vera Ii 04/24/23 14:48:55 Post-Care Text: The patient is free from signs and symptoms of injury caused by extraneous objects Allergy Information FT Pre-Care Text: Verifies allergies Entry 1 Allergies Reviewed? Yes Allergies Reviewed Self/Patient With Outcomes Met? Yes Last Modified By: Bella Vera Ii 04/24/23 14:49:01 Post-Care Text: The patient received appropriate medication(s) safely administered during the perioperative period Surgical Procedures FT Entry 1 Procedure Description Procedure DILATATION and SUCTION Modifiers . CURETTAGE Surgeon Description DILATION AND CURRETTAGE, HYSTEROSCOPY WITH MYOSURE, ENDOMETRIAL POLYPECTOMY, CERVICAL POLYPECTOMY Primary Procedure Yes Primary Surgeon Tai RODRÍGUEZ DO Start 04/24/23 14:40:00 Stop 04/24/23 15:15:00 Anesthesia Type General Surgical Service Obstetric Gynecology Wound Class 2 - Clean-Contaminated Last Modified By: Heather Garcia CST 04/27/23 08:20:33 General Case Data FT Pre-Care Text: Classifies surgical wound, implements aseptic technique, initiates traffic control Entry 1 Case Information OR OR 5 FT Case Level Level 3 Wound Class 2 - Clean-Contaminated Specialty Obstetric Gynecology ASA Class 3 Preop Diagnosis POST MENOPAUSAL Postop Same As Preop Yes BLEEDING, PELVIC PAIN Postop Diagnosis POST MENOPAUSAL Outcomes Met? Yes BLEEDING, PELVIC PAIN Last Modified By: Heather Garcia CST 04/27/23 08:20:45 Post-Care Text: The patient is free from signs and symptoms of infection Skin Assessment (Pre Procedure) FT Pre-Care Text: Implements protective measures to prevent skin/ tissue injury due to thermal or mechanical sources Evaluates for signs and symptoms of physical injury to skin and tissue Entry 1 Skin Integrity Intact, [place], Warm, and Skin Abnormality No Dry Outcomes Met? Yes Last Modified By: Bella Vera Ii 04/24/23 14:52:49 Post-Care Text: The patient is free from signs and symptoms of injury caused by extraneous objects Patient Positioning FT Pre-Care Text: Identifies physical alterations that require additional precautions for procedure-specific positioning, verifies presence of prosthetics or (more content not included)... Normal [facility] Preoperative Documentson Preoperative Documents [id number]#1.00TIFF [facility] Progress Note-Physicianon Progress Note-Physician Patient: SABRA CARPENTER Age: 57 years Sex: Female : 1965 Associated Diagnoses: None Author: Christopher Lozada Jr, DO Postoperative Information Postoperative disposition: Postoperative disposition: To PACU. Optimetrix number: Optimetrix number [id number]. Anesthetic utilized: General. Health Status Allergies: Allergic Reactions (Selected) Severity Not Documented Penicillin- Hives. Sulfa drugs- Stomach upset. Wellbutrin- Hives. Physical Examination Vital Signs(Posting Range: 04/24/2023 0:00 EST - 04/27/2023 9:43 EST) 04/24/2023 16:39 EST Heart Rate Monitored 72 bpm SpO2 95 % 04/24/2023 16:39 EST Systolic Blood Pressure 128 mmHg Diastolic Blood Pressure 79 mmHg Mean Arterial Pressure, Monitered 95 mmHg 04/24/2023 16:39 EST Respiratory Rate 16 br/min 04/24/2023 16:39 EST Temperature Temporal Artery 36.7 DegC 04/24/2023 15:55 EST Heart Rate Monitored 72 bpm SpO2 94 % 04/24/2023 15:53 EST Systolic Blood Pressure 123 mmHg Diastolic Blood Pressure 74 mmHg Mean Arterial Pressure, Monitered 90 mmHg 04/24/2023 15:53 EST Temperature Temporal Artery 37.1 DegC 04/24/2023 15:47 EST Temperature Temporal Artery 36.8 DegC Heart Rate Monitored 67 bpm Respiratory Rate Monitored 12 br/min Systolic Blood Pressure 114 mmHg Diastolic Blood Pressure 62 mmHg Mean Arterial Pressure, Cuff 79 mmHg SpO2 95 % Pain Assessment: Controlled. General: Awake, Alert, Appropriate. Respiratory: Adequate air exchange. Cardiovascular: Stable, Normal peripheral perfusion. Neurological: Normal sensory function, Normal motor function. Assessment Anesthetic outcome No anesthetic complications noted. Adequate pain relief. able to void without difficulty, able to ambulate with assist, tolerating PO intake, no N/V. Review / Management Condition: Stable. Plan Transfer/Discharge: Transfer/Discharge Discharge when meets criteria ( To home ). [facility] Comment on above: Result Comment: Elec tronically Signed By: Christopher Lozada Jr, DO\.br\Date and Time Signed: 04/27/23 09:44 EST Consent for Procedure/Surger yon 04-24-2023 Consent for Procedure/Surgery [id number]#[id number] [facility] Consent for Treatmenton 04-06 Consent for Treatment [id number]#[id number] [facility] Discharge Instructionson Discharge Instructions ANNELISESABRAEE :1965 Visit Date:04/24/2023 Inpatient Discharge Instructions Your Care Team Admitting Physician - Tai RODRÍGUEZ DO Referring Physician - Tai RODRÍGUEZ DO Reason for Your Visit POST MENOPAUSAL BLEEDING, PELVIC PAIN This Is Your Medications List aripiprazole (Abilify 2 mg Tab) carvedilol (Coreg 12.5 mg Tab) ergocalciferol (Vitamin D) multivitamin (Multi Vitamins oral tablet) omeprazole (omeprazole 20 mg Cap-DR) venlafaxine (venlafaxine 75 mg Cap-ER) What to do next Instructions From Your Doctor No qualifying data available. New Follow Up Appointments after Discharge Follow Up with Tai RODRÍGUEZ DO, OBS When: Within 1 to 2 weeks Comments: Call for any problems. Where: Medications What How Much When Instructions Next Dose Unchanged aripiprazole (Abilify 2 mg Tab) 1 Tablets By Mouth Every day Unchanged carvedilol (Coreg 12.5 mg Tab) 1 Tablets By Mouth 2 times a day Unchanged ergocalciferol (Vitamin D) 50,000 International unit By Mouth Every week as directed Unchanged multivitamin (Multi Vitamins oral tablet) 2 Tablets By Mouth Every day Unchanged omeprazole (omeprazole 20 mg Cap-DR) 2 Capsules By Mouth Every day Unchanged venlafaxine (venlafaxine 75 mg Cap-ER) 2 Capsules By Mouth Every day Allergies Wellbutrin (Hives) penicillin (Hives) sulfa drugs (Stomach upset) Problems Ongoing - Any problem that you are currently receiving treatment for. Allergic rhinitis Antral gastritis Anxiety BMI 45.0-49.9, adult Borderline hypertension Depression Diverticulosis of colon Iron deficiency anemia Morbid obesity JELANI (obstructive sleep apnea) Pedunculated lipoma Historical - Any problem that you are no longer receiving treatment for. Anemia Depression Diverticulosis of colon Gastritis Hypertension Education Materials Instructions post D & C, hysteroscopy, LEEP or Essure/laparoscopy You can resume all normal activities within 24 hours following surgery. For 24 hours: no driving, making any important decisions, drinking alcohol ? and a responsible adult should stay with you today. Please refrain from intercourse, douches, and tampons for the next two weeks. You can expect some vaginal spotting, cramps, or light bleeding for a week and up to ten days after surgery. This is normal. If you are soaking a pad an hour or more frequently ? you need to call your doctor. Your first period may not be normal, but most women resume their normal cycles within a month or two. It is helpful for your doctor if you keep a written record of your bleeding following surgery. When abnormal bleeding persists for 2-3 cycles, please bring the record to your doctor. Return to the office for post-operative check, and to go over any biopsy results at your scheduled appointment; usually two weeks following surgery. If you are uncertain if an appointment has been made, please call the office. CALL THE DOCTOR if you have severe pain, heavy bleeding, or a temperature of 100.5 or higher. Resume your regular home medication schedule as soon as you are eating a regular diet. You can either take the prescribed medications as directed for pain, or you can take over the counter pain medication such as Motrin, as indicated on the package for pain or cramps. PLEASE CALL FOR ANY PROBLEMS Common Emergency Awareness Tips IS IT A STROKE? Act FAST and Check for these signs: FACE Does the face look uneven? ARM Does one arm drift down? SPEECH Does their speech sound strange? TIME Call at any sign of stroke Heart Attack Signs Chest discomfort: Most heart attacks involve discomfort in the center of the chest and lasts more than a few minutes, or goes away and comes back. It can feel like uncomfortable pressure, squeezing, fullness or pain. Discomfort in upper body: Symptoms can include pain or discomfort in one or both arms, back, neck, jaw or stomach. Shortness of breath: With or without discomfort. Other signs: Breaking out in a cold sweat, nausea, or lightheaded. Remember, MINUTES DO MATTER. If you experience any of these heart attack warning signs, call to get immediate medical attention! Patient Survey You may receive a survey in the mail asking you about your stay with us. We want to hear from you, please share your experience with us by completing your survey. Thank you for choosing [facility]. Jose Award Nomination The JOSE (Diseases Attacking the Immune SYstem) Award is an international recognition program that honors and celebrates the skillful, compassionate care nurses provide every day. Anyone who experiences or observes amazing care being provided by a nurse is encouraged to submit a nomination. To nominate your nurse, use your smart phone to scan the QR code below. Patient Portal You may access all of your results and other medical record (more content not included)... Normal [facility] Comment on above: Result Comment: Elec tronically Signed By: Osorio AVELAR, Beth Mckeon\.lorena\Date and Time Signed: 04/24/23 15:34 EST H&P Updateon 04-24-2023 H&P Update [id number]#[id number] Normal [facility] Main OR PACU I Recordon 04-06 Main OR PACU I Record PACU Phase I Document Type FT Summary Primary Physician: Tai RODRÍGUEZ DO Finalized Date/Time: 04/24/23 15:56:42 Pt. Name: SABRA CARPENTERMARIA ALEJANDRA Curry/Sex: 1965 Female Med Rec #: [id number] Physician: Tai RODRÍGUEZ DO Financial #: [id number] Pt. Type: A Room/Bed: [place] [address] Admit/Disch: 04/24/23 11:32:00 - Institution: Case Times PACU I FT Pre-Care Text: Identifies barriers to communication and implements measures to provide psychological support Develops individualized plan of care, and ensures continuity of care Maintains patient's dignity and privacy, and maintains patient confidentiality Identifies and reports philosophical, cultural, and spiritual beliefs and values Identifies individual values and wishes concerning care Implements aseptic technique, and administers prescribed antibiotic therapy and immunizing agents as ordered Evaluates postoperative tissue perfusion Implements thermoregulation measures, and monitors body temperature Evaluates postoperative respiratory status Evaluates postoperative cardiac status Evaluates postoperative neurological status Assesses pain control, collaborated in initiating patient-controlled analgesia and implements alternative methods of pain control Verifies allergies, administers prescribed medications and solutions, evaluates response to medications Entry 1 In PACU I 04/24/23 15:22:00 Discharge from PACU 04/24/23 15:52:00 I Outcomes Met? Yes Last Modified By: DEEJAY AVELAR, ALEXANDREA Cavazos 04/24/23 15:56:28 Post-Care Text: The patient demonstrates knowledge of the expected response to the operative or invasive procedure The patient's care is consistent with the individualized perioperative plan of care The patient's right to privacy is maintained The patient's value system, lifestyle, ethnicity, and culture are considered, respected, and incorporated into the perioperative plan of care The patient participates in decisions affecting his or her perioperative plan of care The patient is free from signs and symptoms of infection The patient has wound/tissue perfusion consistent with or improved from baseline levels established preoperatively The patient is at or returning to normothermia at the conclusion of the immediate postoperative period The patient's respiratory function is consistent with or improved from baseline levels established preoperatively The patient's cardiovascular status is consistent with or improved from baseline levels established preoperatively The patient's cardiovascular status is consistent with or improved from baseline levels established preoperatively The patient demonstrates and/or reports adequate pain control throughout the perioperative period The patient received appropriate medication(s), safely administered during the perioperative period Acuity Level PACU I FT Entry 1 Start Time 04/24/23 15:22:00 Stop Time 04/24/23 15:52:00 Acuity Level Acuity Level I Last Modified By: ALEXANDREA VILLALBA RN 04/24/23 15:56:38 Finalized By: ALEXANDREA VILLALBA RN Document Signatures Signed By: ALEXANDREA VILLALBA RN 04/24/23 15:56 Normal [facility] Main OR PACU II Recordon Main OR PACU II Record PACU Phase II Document Type FT Summary Primary Physician: Tai RODRÍGUEZ DO Finalized Date/Time: 04/24/23 16:55:33 Pt. Name: SABRA CARPENTER /Sex: 1965 Female Med Rec #: [id number] Physician: Tai RODRÍGUEZ DO Financial #: [id number] Pt. Type: A Room/Bed: [place] [address] Admit/Disch: 04/24/23 11:32:00 - 04/24/23 16:55:00 Institution: Case Times PACU II FT Pre-Care Text: Identifies barriers to communication and implements measures to provide psychological support and determines knowledge level Develops individualized plan of care, and ensures continuity of care Maintains patient's dignity and privacy, and maintains patient confidentiality Identifies and reports philosophical, cultural, and spiritual beliefs and values Identifies individual values and wishes concerning care administers prescribed antibiotic therapy and immunizing agents as ordered, Evaluates postoperative tissue perfusion Implements thermoregulation measures, and monitors body temperature Evaluates postoperative respiratory status Evaluates postoperative cardiac status Evaluates postoperative neurological status Assesses pain control, collaborated in initiating patient-controlled analgesia and implements alternative methods of pain control Verifies allergies, administers prescribed medications and solutions, evaluates response to medications Entry 1 In PACU II 04/24/23 15:55:00 Discharge from PACU 04/24/23 16:55:00 II Outcomes Met? Yes Last Modified By: Beth Ac RN 04/24/23 16:55:31 Post-Care Text: The patient demonstrates knowledge of the expected response to the operative or invasive procedure The patient's care is consistent with the individualized perioperative plan of care The patient's right to privacy is maintained The patient's value system, lifestyle, ethnicity, and culture are considered, respected, and incorporated into the perioperative plan of care The patient participates in decisions affecting his or her perioperative plan of care. The patient is free from signs and symptoms of infection The patient has wound/tissue perfusion consistent with or improved from baseline levels established preoperatively The patient is at or returning to normothermia at the conclusion of the immediate postoperative period The patient's respiratory function is consistent with or improved from baseline levels established preoperatively The patient's cardiovascular status is consistent with or improved from baseline levels established preoperatively The patient's neurological status is consistent with or improved from baseline levels established preoperatively The patient demonstrates and/or reports adequate pain control throughout the perioperative period The patient received appropriate medication(s), safely administered during the perioperative period Finalized By: Beth Ac RN Document Signatures Signed By: Beth Ac RN 04/24/23 16:55 Normal [facility] Main OR Preoperative Recordo n 04-24-2023 Main OR Preoperative Record PreOp Document Type FT Summary Primary Physician: Tai RODRÍGUEZ DO Finalized Date/Time: 04/24/23 14:47:08 Pt. Name: SABRA CARPENTER /Sex: 1965 Female Med Rec #: [id number] Physician: Tai RODRÍGUEZ DO Financial #: [id number] Pt. Type: A Room/Bed: [place] [address] Admit/Disch: 04/24/23 11:32:00 - Institution: Case Times PreOp FT Pre-Care Text: Verifies consent for planned procedure, identifies individual values and wishes concerning care, includes family members in perioperative teaching Entry 1 Patient Times. In Pre Surgery 04/24/23 11:40:00 Out Pre Surgery 04/24/23 14:18:00 Outcomes Met? Yes Last Modified By: Bella eVra Ii 04/24/23 14:47:05 Post-Care Text: The patient participates in decisions affecting his or her perioperative plan of care Finalized By: Bella Vera Ii Document Signatures Signed By: Bella Vera Ii 04/24/23 14:47 Normal [facility] Monitor Recordon 04-24-2023 Monitor Record [id number]#1.00TIFF Normal [facility] Monitor Record [id number]#1.00TIFF Normal [facility] Patient Education - Texton 0 04-24-2023 Patient Education - Text Instructions post D & C, hysteroscopy, LEEP or Essure/laparoscopy You can resume all normal activities within 24 hours following surgery. For 24 hours: no driving, making any important decisions, drinking alcohol ? and a responsible adult should stay with you today. Please refrain from intercourse, douches, and tampons for the next two weeks. You can expect some vaginal spotting, cramps, or light bleeding for a week and up to ten days after surgery. This is normal. If you are soaking a pad an hour or more frequently ? you need to call your doctor. Your first period may not be normal, but most women resume their normal cycles within a month or two. It is helpful for your doctor if you keep a written record of your bleeding following surgery. When abnormal bleeding persists for 2-3 cycles, please bring the record to your doctor. Return to the office for post-operative check, and to go over any biopsy results at your scheduled appointment; usually two weeks following surgery. If you are uncertain if an appointment has been made, please call the office. CALL THE DOCTOR if you have severe pain, heavy bleeding, or a temperature of 100.5 or higher. Resume your regular home medication schedule as soon as you are eating a regular diet. You can either take the prescribed medications as directed for pain, or you can take over the counter pain medication such as Motrin, as indicated on the package for pain or cramps. PLEASE CALL FOR ANY PROBLEMS Normal [facility] Progress Note-Physicianon Progress Note-Physician Patient: SABRA CARPENTER Age: 57 years Sex: Female : 1965 Associated Diagnoses: None Author: [facility] ()Tomi Preoperative Information Anesthesia history: Patient history: None. Family history+: None. Anesthesia results Informed consent: Signed by patient. Including risks, benefits, and alternatives related to the: Anesthetic plan, Postoperative pain management plan. Re-evaluation prior to induction: Tomi Gilmore DO Health Status Allergies: Allergic Reactions (Selected) Severity Not Documented Penicillin- Hives. Sulfa drugs- Stomach upset. Wellbutrin- Hives., Allergies (3) Active Reaction penicillin Hives sulfa drugs Stomach upset Wellbutrin Hives Current medications: (Selected) Inpatient Medications Ordered Lactated Ringers IV Ana Cristina 1000 mL 1,000 mL: 1,000 mL, IV, 150 mL/hr, Routine, Start date 04/24/23 12:00:00 EST, 6.7 hour(s), Total volume (mL): 1,000, 148.4 kg, 2.68, m2 Documented Medications Documented Abilify 2 mg Tab: 2 mg = 1 tab(s), Oral, Daily, Refills(s) 0, Depression Coreg 12.5 mg Tab: 12.5 mg = 1 tab(s), Oral, BID, Refills(s) 0, High blood pressure Multi Vitamins oral tablet: 2 tab(s), Oral, Daily, Refill(s) 0, Prophylaxis Vitamin D: 50,000 International_Unit, Oral, qWeek, as directed, Refills(s) 0 omeprazole 20 mg Cap-DR: 40 mg = 2 cap(s), Oral, Daily, Refills(s) 0, Control of stomach acid venlafaxine 75 mg Cap-ER: 150 mg = 2 cap(s), Oral, Daily, Refills(s) 0, Depression, Home Medications (6) Active Abilify 2 mg Tab 2 mg = 1 tab(s), Oral, Daily Coreg 12.5 mg Tab 12.5 mg = 1 tab(s), Oral, BID Multi Vitamins oral tablet 2 tab(s), Oral, Daily omeprazole 20 mg Cap-DR 40 mg = 2 cap(s), Oral, Daily venlafaxine 75 mg Cap-ER 150 mg = 2 cap(s), Oral, Daily Vitamin D 50,000 International_Unit, Oral, qWeek , Medications (1) Active Scheduled: (0) Continuous: (1) Lactated Ringers 1,000 mL 1,000 mL, IV, 150 mL/hr PRN: (0) Problem list: All Problems Allergic rhinitis / SNOMED CT 314695948 / Confirmed Antral gastritis / SNOMED CT 0277128 / Confirmed Anxiety / SNOMED CT 80584628 / Confirmed BMI 45.0-49.9, adult / SNOMED CT 4823282043 / Confirmed Borderline hypertension / SNOMED CT 1395277484 / Confirmed Depression / SNOMED CT 00485509 / Confirmed Diverticulosis of colon / SNOMED CT 4889198752 / Confirmed Iron deficiency anemia / SNOMED CT 929259372 / Confirmed Morbid obesity / SNOMED CT 025707646 / Confirmed JELANI (obstructive sleep apnea) / SNOMED CT 718563770 / Confirmed Pedunculated lipoma / SNOMED CT 1928279269 / Confirmed Resolved: Anemia / SNOMED CT 222820014 Resolved: Depression / SNOMED CT 912317550 Resolved: Diverticulosis of colon / SNOMED CT 6076680827 Resolved: Gastritis / SNOMED CT 2373973 Resolved: Hypertension / SNOMED CT 03744362, Active Problems (11) Allergic rhinitis Antral gastritis Anxiety BMI 45.0-49.9, adult Borderline hypertension Depression Diverticulosis of colon Iron deficiency anemia Morbid obesity JELANI (obstructive sleep apnea) Pedunculated lipoma Histories Past Medical History: Resolved Gastritis (6883313): Resolved. Diverticulosis of colon (5808393400): Resolved. Anemia (815871404): Resolved. Depression (736401359): Resolved. Hypertension (70106607): Resolved. Family History: Hypertension Father Sister Diabetes mellitus type 2 Father IgA nephropathy Brother Procedure history: Colonoscopy ([id number]) on 12/05/2021 at 56 Years. Comments: 12/05/2021 10:22 PHAM Diallo RN, Aditi diverticulosis Esophagogastroduodenoscopy ([id number]) on 12/05/2021 at 56 Years. Comments: 12/05/2021 10:22 Aditi Evans RN gastritis, biopsies taken Excision of lipoma (995593875) on 12/05/2021 at 56 Years. Comments: 12/05/2021 10:23 Aditi Evans RN lipoma removal of right posterior thign Social History Social & Psychosocial Habits Alcohol 04/07/2023 Risk Assessment: Denies Alcohol Use 04/07/2023 Use: Current Frequency: 1-2 times per month Substance Abuse 04/07/2023 Risk Assessment: Denies Substance Abuse Tobacco 04/07/2023 Tobacco Use: Never (less than 100 in l Smokeless tobacco use: Never . Physical Examination Vital Signs 04/24/2023 11:54 EST Heart Rate Monitored 82 bpm Systolic Blood Pressure 150 mmHg HI Diastolic Blood Pressure 84 mmHg Mean Arterial Pressure, Monitered 106 mmHg 04/24/2023 11:54 EST Apical Heart Rate 88 bpm Blood Pressure Location Left arm 04/24/2023 11:52 EST Heart Rate Monitored 87 bpm Systolic Blood Pressure 134 mmHg Diastolic Blood Pressure 65 mmHg Mean Arterial Pressure, Monitered 88 mmHg 04/24/2023 11:52 EST Blood Pressure Location Right arm 04/24/2023 11:51 EST Heart Rate Monitored 90 bpm SpO2 95 % 04/24/2023 11:51 EST Systolic Blood Pressure 182 mmHg HI Diastolic Blood Pressure 87 mmHg Mean Arterial Pressure, Monitered 119 mmH (more content not included)... Normal [facility] Comment on above: Result Comment: Elec tronically Signed By: [facility] ()Tomi\.br\Date and Time Signed: 04/24/23 13:36 EST Consent for Treatmenton Consent for Treatment [id number]#1.00TIFF [facility] XR Chest 2 Viewson XR Chest 2 Views Exam Date/Time: 04/07/2023 14:04 EST Reason for Exam: P.A.T. Report IMPRESSION: NO RADIOGRAPHIC EVIDENCE OF ACTIVE DISEASE IN THE CHEST. CLINICAL INFORMATION: P.A.T. COMPARISON: None available. FINDINGS: Two views of the chest were obtained. Heart and mediastinum appear normal. The lungs appear clear. Visualized bony thorax and remainder of the chest appears unremarkable. Ordering Provider: Christopher Lozada FINAL REPORT Dictated: 04/07/2023 5:39 pm Barber Minor MD Signed (Electronic Signature): 04/07/2023 5:39 pm Signed by: Barber Minor MD Transcribed by: DP Technologist: PATTI Technical Comments Radiation Dose: Kar in mGy = . DAP = . Normal [facility] Physician Orderon 03-26-2023 Physician Order [id number]#1.00TIFF Normal [facility] ED Note-Physicianon 03-07-20 ED Note-Physician Basic Information Time Seen: Wil James PA-C 02/27/2023 15:02 Chief Complaint pt reports vaginal bleeding since last thursday. Pt reports yesterday she sat on the toilet for 15 mins and reports multiple blood clots coming out. hx of low hgb. no menstrual cycle for 4 years. denies n/v. History of Present Illness A 57-year-old female reports the emergency department with chief complaint of vaginal bleeding. Reports been going on since last Thursday. States that she is concerned because she has a history of low hemoglobin. Reports that she is on any blood thinners. Reports that she sat in the toilet for about 15 minutes, had multiple blood clots coming out. Reports a slow down since then. Reports that she has not had a menstrual cycle in 4 years. Denies any nausea or vomiting. Reports some cramping-like sensation, otherwise benign. She states that she does not have HONEY LIQUEFIER at this time. Review of Systems A 10 point review of systems is negative except as noted above. Medical and Surgical History: Reviewed and noted Social history: Lives at home Family History: Reviewed. Tobacco: Denies Physical Exam Vitals & Measurements T: 36.7 ?C(Oral) HR: 85(Monitored) RR: 16 BP: 162/91 SpO2: 98% HT: 175.26 cm WT: 144.6 kg BMI: 47.08 General: The patient appears well and in no apparent distress. Patient is resting comfortably on bed. Afebrile Skin: Warm, dry, no pallor noted. Head: Normocephalic, atraumatic Neck: No JVD Eye: PERRLA, EOMI ENT: Moist mucus membranes Cardiovascular: Regular rate normal peripheral perfusion Respiratory: No respiratory distress no accessory muscle use no obvious audible wheezing Chest Wall: no deformity Musculoskeletal: normal ROM, no deformity, no swelling GI: No obvious distention soft nontender nondistended no guarding rebounding or rigidity. No CVA tenderness bilaterally Neurological: A&O moves all extremities equal strength and symmetry Psychiatric: Cooperative and appropriate Medical Decision Making MEDICAL DECISION MAKING Number and Complexity of Problems Differential Diagnosis: [] [facility] Data External documents reviewed: [] My EKG interpretation: [] My CT interpretation: [] My X-ray interpretation: [] My Ultrasound interpretation: [] Decision rules/scores evaluated: [] Discussed with: [] Treatment and Disposition ED Course: 57-year-old female reports to the emergency department with chief complaint of irregular vaginal bleeding. Reports been going on since last Thursday. Reports it has been coming and going. States that she has not had a menstrual cycle in last 4 years. She states that she is to have heavy periods, but does not have a HONEY LIQUEFIER at this time. She denies any other symptoms. Denies any blood thinner use. Physical exam she appears nontoxic, resting comfortably in the bed. Physical exam the abdomen is benign. Due to her concerns we did do lab work. Lab work reviewed and noted. Stable at 11. No UTI at this time. Due to concerns, I discussed that this can happen, discussed ultimately she needs to follow-up with HONEY LIQUEFIER. Patient was understanding. Discussed return precautions with follow-up with your primary care provider in 3 to 5 days. If symptoms worsen, do not improve, or new symptoms arise please report back to emergency department for further evaluation. The patient was understanding and agreeable to plan moving forward. Shared decision making: [] Code status: [] Assessment/Plan Vaginal bleeding, abnormal (N93.9: Abnormal uterine and vaginal bleeding, unspecified) Orders: UA With Cult Reflex Urine Culture Disposition Plan Patient Discharge Condition Stable Discharge Disposition To home Discharge Prescription List Prescriptions No active prescription medications Follow-up With When Contact Information Caren Cuadra In 3 days 03/02/2023 EST [address] [place] [address]- Business (1) Additional Instructions: Tai RODRÍGUEZ In 3 days 03/02/[address] , [place] [address]- Business (1) Additional Instructions: Heide Gutierrez In 3 days [address] [facility] [place] [place] [address]- Business (1) Additional Instructions: Patient Education Abnormal Uterine Bleeding Attestation Patient seen and evaluated by the physician assistant men's soccer coach. Attending physician was present in the emergency department and supervised care. This visit was performed by both the physician and an APC. I performed all aspects of the MDM as documented. This report was transcribed using voice recognition software. Every effort was made to ensure accuracy, however, inadvertently computerized medical collector mistakes may be present. Appropriate healthcare PPE was used in evaluating this patient. The patient was placed in a mask. The healthcare provider was wearing mask, gloves, and utilizing proper hand hygiene. All equipment was properly suyapa (more content not included)... [facility] Comment on above: Result Comment: Elec tronically Signed By: Wil James PA-C\.br\Date and Time Signed: 02/27/23 16:23 EST\.br\Electronically Co-Signed By: Pranav Nicolas DO\.br\Date and Time Co-Signed: 03/07/23 06:59 EST US Pelvis Non-OB Completeon 03-06-2023 US Pelvis Non-OB Complete Exam Date/Time: 03/04/2023 15:17 EST Reason for Exam: N93.9 Report IMPRESSION: Fibroid uterus. CLINICAL HISTORY: N93.9 COMPARISONS: None available. TECHNICAL FACTORS: Transabdominal and transvaginal sonography with transvaginal imaging was obtained to better assess pelvic anatomy. FINDINGS: Uterus: Heterogenous in appearance. A 3.0 x 2.5 x 3.1 cm area is identified in the posterior uterine body Endometrium: Normal in appearance. Right ovary: Not visualized. Left ovary: Not visualized. Free fluid: None Adnexal masses: None The uterus measurements and an estimated volume are: Uterus Length: 7.7 cm Uterus Width: 5.0 cm Uterus Height: 3.1 cm Uterus Volume: 62.3 cm3 Endometrium Thickness: 0.2 cm Ordering Provider: Heide Gutierrez FINAL REPORT Dictated: 03/06/2023 9:30 am Barber Minor MD Signed (Electronic Signature): 03/06/2023 9:30 am Signed by: Barber Minor MD Transcribed by: NELLA Technologist: LÓPEZ [facility] US Transvaginal Non-OBon US Transvaginal Non-OB Exam Date/Time: 03/04/2023 15:17 EST Reason for Exam: Abnormal vaginal bleeding Report Please review report of pelvic ultrasound. Ordering Provider: Heide Gutierrez FINAL REPORT Dictated: 03/06/2023 9:30 am Barber Minor MD Signed (Electronic Signature): 03/06/2023 9:30 am Signed by: Barber Minor MD Transcribed by: NELLA Technologist: LÓPEZ [facility] Consent for Treatmenton 02-05 Consent for Treatment [id number]#1.00TIFF [facility] Physician Orderon 03-03-2023 Physician Order [id number]#1.00TIFF [facility] C Urineon 03-01-2023 Bacteria identified Cx Nom (U) Microbiology PROCEDURE: Urine Culture [R1] SOURCE: U CleanCatch BODY SITE: COLLECTED DATE/TIME: 02/27/2023 15:21 EST RECEIVED DATE/TIME: 02/27/2023 20:30 EST START DATE/TIME: 02/27/2023 20:30 EST FREE TEXT SOURCE: Jacob OSEGUERA, Wil Kunz. Jacob OSEGUERA, Wil Kunz. FINAL REPORTS Final Report [] Verified Date/Time: 03/01/2023 06:37 EST 5,000 cfu/ml Mixed skin contaminants Performing Locations R1: This test was performed at: [facility], [address] [place] [address], [address] [place] [address], [facility] Comment on above: Performed By: #### 1 [id number], [id number] ####[place] [address] Auto Diffon 02-27-2023 Basophils/100 WBC (Bld) 0.6 % Normal 0.0-2.0 [facility] Comment on above: Order Comment: Order Added by Discern Expert. Performed By: #### 2 024913, 19180077, 16581220, 6193050, 9047833 ####[address] [place] [address] Basophils/Leukocytes Auto (Bld) [Pure # fraction] 0.1 E9/L Normal 0.0-0.2 [facility] Comment on above: Order Comment: Order Added by Discern Expert. Performed By: #### 2 622824, 99458756, 18281653, 1230632, 9468617 ####[address] [address] Eosinophils/100 WBC (Bld) 0.8 % Normal 0.0-8.0 [facility] Comment on above: Order Comment: Order Added by Discern Expert. Performed By: #### 2 468083, 02103427, 31534487, 8971654, 4967985 ####[address] [address] Eosinophils/Leukocyt es Auto (Bld) [Pure # fraction] 0.1 E9/L Normal 0.0-0.5 [facility] Comment on above: Order Comment: Order Added by Discern Expert. Performed By: #### 2 566093, 79097480, 41282348, 7113278, 9742729 ####[address] [address] Lymphocytes/100 WBC (Bld) 10.7 % Low 14.0-50.0 [facility] Comment on above: Order Comment: Order Added by Discern Expert. Performed By: #### 2 725707, 48961614, 38481439, 8797517, 0897732 ####[address] [address] Lymphocytes/Leukocyt es Auto (Bld) [Pure # fraction] 1.5 E9/L Normal 1.0-4.0 [facility] Comment on above: Order Comment: Order Added by Discern Expert. Performed By: #### 2 372752, 00067212, 28035931, 1050917, 8564283 ####[address] [place] [address] Monocytes/100 WBC (Bld) 5.9 % Normal 4.0-14.0 [facility] Comment on above: Order Comment: Order Added by Discern Expert. Performed By: #### 2 075671, 65646872, 09991556, 8599227, 7859874 ####[address] [address] Monocytes/Leukocytes Auto (Bld) [Pure # fraction] 0.8 E9/L Normal 0.2-1.0 [facility] Comment on above: Order Comment: Order Added by Discern Expert. Performed By: #### 2 868399, 73048899, 19459858, 2169091, 7775836 ####[address] [address] Neutrophils/100 WBC (Bld) 82.0 % High 36.0-75.0 [facility] Comment on above: Order Comment: Order Added by Discern Expert. Performed By: #### 2 694218, 83286434, 27310645, 4194634, 0617180 ####[address] [address] Neutrophils/Leukocyt es Auto (Bld) [Pure # fraction] 11.8 E9/L High 2.0-7.5 [facility] Comment on above: Order Comment: Order Added by Discern Expert. Performed By: #### 2 642464, 50387783, 15117490, 0241295, 9429581 ####[address] [address] CBC w/ Auto Diffon 3 Erythrocyte distribution width (RBC) [Ratio] 15.3 % High 10.9-14.2 [facility] Comment on above: Performed By: #### 2 628809, 02469541, 01829092, 6362197, 8776560 ####[address] [address] Hematocrit (Bld) [Volume fraction] 34.3 % Normal 34.0-46.0 [facility] Comment on above: Performed By: #### 2 509725, 43030093, 34121327, 2266783, 4295345 ####[facility] [address] [place] [address] Hemoglobin (Bld) [Mass/Vol] 11.2 g/dL Low 12.0-16.0 [facility] Comment on above: Performed By: #### 2 630975, 54817187, 65060977, 4804095, 6623506 ####[address] [address] MCH (RBC) [Entitic mass] 26.8 pg Low 27.0-34.0 [facility] Comment on above: Performed By: #### 2 039238, 47738930, 63095426, 7865018, 4505384 ####[address] [address] MCHC (RBC) [Mass/Vol] 32.6 g/dL Normal 31.4-36.0 [facility] Comment on above: Performed By: #### 2 880030, 55552937, 91180966, 9592948, 2743764 ####[address] [address] MCV (RBC) [Entitic vol] 82.0 fL Normal 80.0-100.0 [facility] Comment on above: Performed By: #### 2 269149, 30334893, 79417263, 8088080, 8002321 ####[address] [address] Platelet mean volume (Bld) [Entitic vol] 8.4 fL Normal 6.4-10.8 [facility] Comment on above: Performed By: #### 2 774403, 93690376, 53987622, 1465986, 5465121 ####[address] [address] Platelets (Bld) [#/Vol] 384.0 E9/L Normal 150.0-500. 0 [facility] Comment on above: Performed By: #### 2 020595, 02169088, 59232514, 4783419, 9031383 ####[facility] [address] [place] [address] RBC (Bld) [#/Vol] 4.2 E12/L Low 4.3-5.9 [facility] Comment on above: Performed By: #### 2 156693, 04125266, 68337255, 2890351, 3968509 ####[facility] [address] [place] [address] WBC corrected for nucl RBC Auto (Bld) [#/Vol] 14.3 E9/L High 4.0-11.0 [facility] Comment on above: Performed By: #### 2 965289, 21414732, 43210960, 1526763, 1584026 ####[facility] [id number] CHEMISTRYOrdered By: SYSTEM SYSTEM on 02-27-2023 Albumin [Mass/Vol] 4.0 g/dL Normal 3.3 - 5.0 gm/dL [facility] Albumin/Globulin [Mass ratio] 1.2 {ratio} Normal 1.1 - 2.2 [facility] ALP [Catalytic activity/Vol] 75 [iU]/d Normal 21 - 98 Int._Unit/ L [facility] ALT No additional P-5'-P [Catalytic activity/Vol] 12 [iU]/d Normal 6 - 46 Int._Unit/ L [facility] Anion gap [Moles/Vol] 13 mmol/L Normal 6 - 16 mEq/L [facility] AST [Catalytic activity/Vol] 13 [iU]/d Normal 5 - 43 Int._Unit/ L [facility] Bilirubin [Mass/Vol] 0.4 mg/dL Normal 0.0 - 1 .1 mg/dL [facility] Calcium [Mass/Vol] 9.6 mg/dL Normal 8.9 - 11. 1 mg/dL [facility] Chloride [Moles/Vol] 107 mmol/L Normal 101 - 1 11 mmol/L [facility] CO2 [Moles/Vol] 27 mmol/L Normal 21 - 31 mmol/L [facility] Creatinine [Mass/Vol] 0.7 mg/dL Normal 0.5 - 1.3 mg/dL [facility] GFR/1.73 sq M.predicted among non-blacks MDRD (S/P/Bld) [Vol rate/Area] 102 mL/min/1.73 m2 Normal >=59mL/min /1.73 m2 [facility] Chem S Comment on above: Interpretive Data: C hronic kidney disease could be indicated at eGFR's of less than 60 mL/min/1.73m2. Kidney failure is indicated at less than 15 mL/min/1.73m2. Globulin (S) [Mass/Vol] 3.3 g/dL Normal 1.4 - 4.0 gm/dL [facility] Glucose [Mass/Vol] 129 mg/dL Normal 55 - 199 mg/dL [facility] Remisol Comment on above: Interpretive Data: I f this glucose result represents a fasting glucose, interpretation should refer to the following reference range: 55-99 mg/dL Potassium [Moles/Vol] 4.4 mmol/L Normal 3.5 - 5.3 mmol/L [facility] Protein [Mass/Vol] 7.3 g/dL Normal 6.0 - 7.8 gm/dL [facility] Sodium [Moles/Vol] 143 mmol/L Normal 135 - 145 mmol/L [facility] Urea nitrogen [Mass/Vol] 17 mg/dL Normal 5 - 21 mg/dL [facility] Urea nitrogen/Creatinine [Mass ratio] 24 mg/mg High 10 - 20 [facility] CMPon 02-27-2023 Albumin [Mass/Vol] 4.0 g/dL Normal 3.3-5.0 [facility] Comment on above: Performed By: #### 2 590179, 52313619, 47419046, 5923589, 0881560 ####[facility] [address] [place] [address] Albumin/Globulin (S) [Mass conc ratio] 1.2 Normal 1.1-2.2 [facility] Comment on above: Performed By: #### 2 402541, 35632192, 90181068, 1476023, 0708580 ####[facility] [address] [place] [address] ALP [Catalytic activity/Vol] 75 Int._Unit/L Normal 21-98 [facility] Comment on above: Performed By: #### 2 000386, 01775358, 83027621, 2559680, 1286381 ####[address] [address] ALT No additional P-5'-P [Catalytic activity/Vol] 12 Int._Unit/L Normal 6-46 [facility] Comment on above: Performed By: #### 2 156478, 34091977, 11569416, 8563181, 5767808 ####[address] [address] AST [Catalytic activity/Vol] 13 Int._Unit/L Normal 5-43 [facility] Comment on above: Performed By: #### 2 579705, 90268087, 66560600, 7924765, 2393781 ####[facility] [address] [place] [address] Bilirubin [Mass/Vol] 0.4 mg/dL Normal 0.0-1.1 [facility] Comment on above: Performed By: #### 2 738832, 73372505, 80190849, 1569250, 6333902 ####[facility] [address] [place] [address] Creatinine [Mass/Vol] 0.7 mg/dL Normal 0.5-1.3 [facility] Comment on above: Performed By: #### 2 234619, 11692949, 13282790, 5813733, 8568629 ####[facility] [address] [place] [address] Globulin (S) [Mass/Vol] 3.3 g/dL Normal 1.4-4.0 [facility] Comment on above: Performed By: #### 2 588515, 91840655, 78521264, 7797768, 7348791 ####[facility] [address] [place] [address] Protein [Mass/Vol] 7.3 g/dL Normal 6.0-7.8 [facility] Comment on above: Performed By: #### 2 943740, 68908211, 11432768, 5429283, 6381875 ####[facility] [address] [place] [address] Urea nitrogen [Mass/Vol] 17 mg/dL Normal 5-21 [facility] Comment on above: Performed By: #### 2 432893, 34712233, 88236793, 7710162, 7385788 ####[facility] [address] [place] [address] Urea nitrogen/Creatinine [Mass ratio] 24 No Units High 10-20 [facility] Comment on above: Performed By: #### 2 150319, 61640473, 19353784, 7030445, 7315319 ####[facility] [address] [facility] [place] [address] Anion gap [Moles/Vol] 13 mmol/L Normal 6-16 [facility] Comment on above: Performed By: #### 2 188745, 44859205, 19688943, 9568745, 7636258 ####[facility] [address] [place] [address] Calcium [Mass/Vol] 9.6 mg/dL Normal 8.9-11.1 [facility] Comment on above: Performed By: #### 2 218844, 64033667, 80019274, 6365632, 9441144 ####[facility] [address] [place] [address] Chloride [Moles/Vol] 107 mmol/L Normal 101-111 [facility] Comment on above: Performed By: #### 2 598684, 75812246, 46321120, 7890242, 7507755 ####[facility] [address] [place] [address] CO2 [Moles/Vol] 27 mmol/L Normal 21-31 [facility] Comment on above: Performed By: #### 2 941752, 06311085, 93285819, 0721299, 9527703 ####[facility] [address] [place] [address] Glucose [Mass/Vol] 129 mg/dL Normal 55-199 [facility] Comment on above: Result Comment: If t his glucose result represents a fasting glucose, interpretation should refer to the following reference range: 55-99 mg/dL Performed By: #### 2 101728, 99092190, 27064501, 5039405, 3438991 ####[facility] [address] [place] [address] Potassium [Moles/Vol] 4.4 mmol/L Normal 3.5-5.3 [facility] Comment on above: Performed By: #### 2 986134, 39030775, 68154927, 3342912, 4394139 ####[facility] [address] [place] [address] Sodium [Moles/Vol] 143 mmol/L Normal 135-145 [facility] Comment on above: Performed By: #### 2 026271, 66474052, 40903252, 0731350, 3625197 ####[facility] [address] [place] [address] COAGULATIONOrdered By: Shahana Johnson on 02-27-2023 aPTT Coag (PPP) [Time] 26.9 s Normal 25.1 - 36.5 second(s) [facility] Auto Coag Comment on above: Interpretive Data: P arameter 15 days - 4 weeks 1 - 5 months 6 - 11 months 1 - 5 years 6 - 10 years 11 - 17 years PTT Mean: 35.4 (27.6-45.6) Mean: 33.5 (24.8-40.7) Mean: 32.4 (25.1-40.7) Mean: 31.6 (24.0-39.2) Mean: 31.6 (26.9-38.7) Mean: 31.0 (24.6-38.4) Pediatric Reference ranges were obtained from a study by tbaby Lorenzo alNabila prepared from 1437 samples obtained at 7 different centers using the same coagulation reagent and instrumentation as [facility]. Currently there are no coagulation studies available worldwide for children to 14 days, and no normal ranges. Heparin therapeutic range (represented by Anti-Factor Xa activity of 0.2 - 0.4 U/mL) corresponds to PTT of 56.6 - 109.0 sec. INR Coag (PPP) [Relative time] 1.1 {INR} Invalid Interpretation Code [facility] Comment on above: Interpretive Data: I NR results are specifically intended to assess patients stabilized on long-term Anticoagulation therapy suggested INR s Less Intensive Anticoagulation 2.0 3.0 Conventional Range 3.0 4.5 PT Coag (PPP) [Time] 12.1 s Normal 9.4 - 1 2.5 second(s) [facility] Comment on above: Interpretive Data: 1 5 days - 4 weeks 1 - 5 months 6 -11 months 1 5 years 6 10 years 11 -17 years Mean: 11.2 (9.5 12.6) Mean: 11.0 (9.7 12.8) Mean: 11.0 (9.8 13.0) Mean: 11.3 (9.9 13.4) Mean: 11.7 (10.0 14.6) Mean: 11.8 (10.0 - 14.1) Pediatric Reference ranges were obtained from a study by tabby Lorenzo al. prepared from 1437 samples obtained at 7 different centers using the same coagulation reagent and instrumentation as [facility]. Currently there are no coagulation studies available worldwide for children to 14 days, and no normal ranges. Consent for Treatmenton 02-05 Consent for Treatment [id number]#1.00TIFF Normal [facility] Discharge Instructionson Discharge Instructions [id number]#1.00TIFF Normal [facility] ED Clinical Summaryon 2022 ED Clinical Summary (Inserted Image. Nickie ble to display) [address] [address] ED Clinical Summary Person Information Name: SABRA CARPENTER/[facility] Age: 57 Years : 1965 Sex: Female Language: Italian PCP: Heide Gutierrez MD Marital Status: Visit Id: Visit Reason: Vaginal bleeding; HEAVY VAGINAL BLEEDING Speciality: Acuity: 3 Enc Type: Emergency Med Service: Emergency Arrival: 02/27/2023 14:07:33 Discharge: 02/27/2023 15:56:32 LOS: 000 01:49 Checkin: 02/27/2023 14:07:33 Checkout: 02/27/2023 15:56:32 Dispo Type: Home (Routine DC) EVENTS: Event Name Event Status Request Date/Time Start Date/Time Complete Date/Time Arrive Complete 02/27/2023 14:07:33 02/27/2023 14:07:33 02/27/2023 14:07:33 Document Home Meds Request 02/27/2023 14:07:33 Triage Complete 02/27/2023 14:07:33 02/27/2023 14:22:39 02/27/2023 14:22:39 Pending Labs Complete 02/27/2023 14:14:01 02/27/2023 15:03:57 Lab Complete 02/27/2023 14:14:01 02/27/2023 15:03:57 Pending Labs Complete 02/27/2023 14:43:38 02/27/2023 14:43:38 02/27/2023 15:03:58 Lab Complete 02/27/2023 14:43:38 02/27/2023 14:43:38 02/27/2023 15:03:58 Pending Labs Complete 02/27/2023 14:51:46 02/27/2023 14:51:46 02/27/2023 14:51:54 Lab Complete 02/27/2023 14:51:46 02/27/2023 14:51:46 02/27/2023 14:51:54 Bed Assign Complete 02/27/2023 14:56:14 02/27/2023 14:56:14 02/27/2023 14:56:14 Dr Exam Complete 02/27/2023 14:56:14 02/27/2023 15:02:53 02/27/2023 15:02:53 RN Exam Complete 02/27/2023 14:56:14 02/27/2023 15:16:08 02/27/2023 15:16:08 Registration Complete 02/27/2023 15:02:53 02/27/2023 15:30:17 02/27/2023 15:30:17 Pending Labs Complete 02/27/2023 15:04:13 02/27/2023 15:35:51 Lab Complete 02/27/2023 15:04:13 02/27/2023 15:35:51 Urine Collect Complete 02/27/2023 15:04:13 02/27/2023 15:35:51 Dr Exam Complete 02/27/2023 15:06:47 02/27/2023 15:06:47 02/27/2023 15:06:47 Pending Labs Complete 02/27/2023 15:24:23 02/27/2023 15:24:23 02/27/2023 15:24:24 Reg Complete Request 02/27/2023 15:30:17 Reg Bed Request Complete 02/27/2023 15:30:17 02/27/2023 15:30:17 02/27/2023 15:30:17 Pending Labs Collected 02/27/2023 15:35:51 02/27/2023 15:35:51 Lab Collected 02/27/2023 15:35:51 02/27/2023 15:35:51 Discharge Complete 02/27/2023 15:49:45 02/27/2023 15:56:51 02/27/2023 15:56:51 Transfer Complete 02/27/2023 15:56:51 02/27/2023 15:56:51 02/27/2023 15:56:51 ADDRESS: [address] [facility] [phone] PHYS DOC NOTES: MEDICAL INFORMATION: Prescriptions Given: Medications to Continue with No Changes Other Medications aripiprazole (Abilify 2 mg Tab) 1 Tablets By Mouth every day. carvedilol (Coreg 12.5 mg Tab) 1 Tablets By Mouth 2 times a day. cyanocobalamin (Vitamin B-12 1000 mcg sublingual tablet) 1 Tablets Sublingual every day. ergocalciferol (Vitamin D) 50,000 International unit By Mouth every week. as directed. multivitamin (Multi Vitamins oral tablet) 2 Tablets By Mouth every day. omeprazole (omeprazole 20 mg Cap-DR) 2 Capsules By Mouth every day. phentermine (Adipex-P 37.5 mg Tab) 1 Tablets By Mouth every day. sucralfate (Carafate 1 gram Tab) 1 Tablets By Mouth 4 times a day. Refills: 3. venlafaxine (venlafaxine 75 mg Cap-ER) 2 Capsules By Mouth every day. PATIENT EDUCATION INFORMATION: Instructions: Abnormal Uterine Bleeding Follow up: With: Address: When: Caren Cuadra [address] [place] [address] Business (1) In 3 days 03/02/2023 With: Address: When: Tai RODRÍGUEZ [facility]ly [facility], [address] [place] [address] , [place] [address] Business (1) In 3 days 03/02/2023 With: Address: When: Heide Gutierrez [address] [facility], [place] [address] Business (1) In 3 days DIAGNOSIS: Vaginal bleeding, abnormal Normal [facility] ED Patient Education Noteon 02-27-2023 ED Patient Education Note Obstetrics and Gynecology Abnormal Uterine Bleeding Abnormal uterine bleeding is unusual bleeding from the uterus. It includes bleeding after sex, or bleeding or spotting between menstrual periods. It may also include bleeding that is heavier than normal, menstrual periods that last longer than usual, or bleeding that occurs after menopause. Abnormal uterine bleeding can affect teenagers, women in their reproductive years, women, and women who have reached menopause. Common causes of abnormal uterine bleeding include: ? . ? Abnormal growths within the lining of the uterus (polyps). ? Benign tumors or growths in the uterus (fibroids). These are not cancer. ? Infection. ? Cancer. ? Too much or too little of some hormones in the body (hormonal imbalances). Any type of abnormal bleeding should be checked by a health care provider. Many cases are minor and simple to treat, but others may be more serious. Treatment will depend on the cause of the bleeding and how severe it is. Follow these instructions at home: Medicines ? Take nrxa-gfp-sfuhual and prescription medicines only as told by your health care provider. ? Ask your health care provider about: ? Taking medicines such as aspirin and ibuprofen. These medicines can thin your blood. Do not take these medicines unless your health care provider tells you to take them. ? Taking isyk-gud-kaxhoyc medicines, vitamins, herbs, and supplements. ? If you were prescribed iron pills, take them as told by your health care provider. Iron pills help to replace iron that your body loses because of this condition. Managing constipation In cases of severe bleeding, you may be asked to increase your iron intake to treat anemia. Doing this may cause constipation. To prevent or treat constipation, you may need to: ? Drink enough fluid to keep your urine pale yellow. ? Take naws-hvp-xlfjgna or prescription medicines. ? Eat foods that are high in fiber, such as beans, whole grains, and fresh fruits and vegetables. ? Limit foods that are high in fat and processed sugars, such as fried or sweet foods. Activity Alter your activity to decrease bleeding if you need to change your sanitary pad more than one time every 2 hours: ? Lie in bed with your feet raised (elevated). ? Place a cold pack on your lower abdomen. ? Rest as much as possible until the bleeding stops or slows down. General instructions ? Do not use tampons, douche, or have sex until your health care provider says these things are okay. ? Change your sanitary pads often. ? Get regular exams. These include pelvic exams and cervical cancer screenings. ? It is up to you to get the results of any tests that are done. Ask your health care provider, or the department that is doing the tests, when your results will be ready. ? Monitor your condition for any changes. For 2 months, write down: ? When your menstrual period starts. ? When your menstrual period ends. ? When any abnormal vaginal bleeding occurs. ? What problems you notice. ? Keep all follow-up visits. This is important. Contact a health care provider if: ? You have bleeding that lasts for more than one week. ? You feel dizzy at times. ? You feel nauseous or you vomit. ? You feel light-headed or weak. ? You notice any other changes that show that your condition is getting worse. Get help right away if: ? You faint. ? You have bleeding that soaks through a sanitary pad every hour. ? You have pain in the abdomen. ? You have a fever or chills. ? You become sweaty or weak. ? You pass large blood clots from your vagina. These symptoms may represent a serious problem that is an emergency. Do not wait to see if the symptoms will go away. Get medical help right away. Call your local emergency services (911 in the [place] Do not drive yourself to the hospital. Summary ? Abnormal uterine bleeding is unusual bleeding from the uterus. ? Any type of abnormal bleeding should be checked by a health care provider. Many cases are minor and simple to treat, but others may be more serious. ? Treatment will depend on the cause of the bleeding and how severe it is. ? Get help right away if you faint, you have bleeding that soaks through a sanitary pad every hour, or you pass large blood clots from your vagina. This information is not intended to replace advice given to you by your health care provider. Make sure you discuss any questions you have with your health care provider. Document Revised: 07/23/2021 Document Reviewed: 07/23/2021 [employer] Patient Education ? 2022 [employer] Normal [facility] ED Patient Summaryon 023 ED Patient Summary (Inserted Image. Nickie ble to display) [place] [id number] Patient Discharge Instructions Person Information Name: SABRA CARPENTER Age: 57 Years Arrival Date: 02/27/2023 14:07:33 Discharge Diagnosis: Vaginal bleeding, abnormal Primary Care Physician: Heide Gutierrez MD Provider Information Primary Provider: Pranav Nicolas DO Advanced Cutting Machine Operator:None The exam and treatment you received in the Emergency Department were for an urgent problem and are not intended as complete care. It is important that you follow up with a doctor, nurse practitioner, or physician?s assistant men's soccer coach for ongoing care. If your symptoms become worse or you do not improve as expected and you are unable to reach your usual health care provider, you should return to the Emergency Department. We are available 24 hours a day. SABRA CARPENTER has been given the following list of patient education materials, prescriptions and follow-up instructions: Follow-up Instructions: With: Address: When: Caren Venecia [address] [place] [address] Business (1) In 3 days 03/02/2023 With: Address: When: Tai RODRÍGUEZ [facility]ly [facility], [address] , [place] [address] Business (1) In 3 days 03/02/2023 With: Address: When: Heide Gutierrez [address], [place] [address] Business (1) In 3 days In the event that this physician does not participate in your insurance network, please consult with your insurance company to find a nearby participating provider. Patient Education Materials: Abnormal Uterine Bleeding A MESSAGE TO ALL PATIENTS REGARDING OPIOIDS PRESCRIPTION OPIOIDS: WHAT YOU NEED TO KNOW Prescription opioids can be used to help relieve ctdwugis-yt-taliyr pain and are often prescribed following a surgery or injury, or for certain health conditions. These medications can be an important part of the treatment but also come with serious risks. It is important to work with your healthcare provider to make sure you are getting the safest, most effective care. WHAT ARE THE RISKS AND SIDE EFFECTS OF OPIOID USE? Prescription opioids carry serious risks of addiction and overdose, especially with prolonged use. An opioid overdose, often marked by slowed breathing, can cause sudden . The use of prescription opioids can have a number of side effects as well, even when taken as directed: ? Tolerance?meaning you might need to take more of the medication for the same pain relief ? Physical dependence?meaning you have symptoms of withdrawal when a medication is stopped ? Increased sensitivity to pain ? Constipation ? Nausea, vomiting, and dry mouth ? Sleepiness and dizziness ? Confusion ? Depression ? Low levels of testosterone that can result in lower sex drive, energy, and strength ? Itching and sweating RISKS ARE GREATER WITH: ? History of drug misuse, substance use disorder, or overdose ? Mental health conditions (such as depression or anxiety) ? Sleep apnea ? Older age (65 years and older) ? Avoid alcohol while taking prescription opioids. Also, unless specifically advised by your health care provider, medications to avoid include: ? Benzodiazepines (such as Xanax or Valium) ? Muscle relaxants (such as Soma or Flexeril) ? Hypnotics (such as Ambien or Lunesta) ? Other prescription opioids KNOW YOUR OPTIONS Talk to your health care provider about ways to manage your pain that don?t involve prescription opioids. Some of these options may actually work better and have fewer risks and side effects. Options may include: ? Pain relievers such as acetaminophen, ibuprofen, and naproxen ? Some medication that are also used for depression or seizures ? Physical therapy and exercise ? Cognitive behavioral therapy, a psychological, goal-directed approach, in which patients learn how to modify physical, behavioral, and emotional triggers of pain and stress. IF YOU ARE PRESCRIBED OPIOIDS FOR PAIN: ? Never take opioids in greater amounts or more often than prescribed. ? Follow up with your primary health care provider. o Work together to create a plan on how to manage your pain. o Talk about ways to help manage your pain that don?t involve prescription opioids. o Talk about any and all concerns and side effects. ? Help prevent misuse and abuse o Never sell or share prescription opioids. o Never use another person?s prescription opioids. ? Store prescription opioids in a secure place and out of reach of others (this may include visitors, children, friends, and family). ? Safely dispose of unused prescription opioids: Find your community drug take-back program or your pharmacy mail-back program, or flush them down the toilet, following guidance from the Food and Drug Administration (www.fda.gov/Drugs/Resource (more content not included)... Normal [facility] HEMATOLOGYOrdered By: SYSTEM SYSTEM on 02-27-2023 Basophils/100 WBC (Bld) 0.6 % Normal 0.0 - 2.0 % [facility] Basophils/Leukocytes Auto (Bld) [Pure # fraction] 0.1 E9/L Normal 0.0 - 0.2 E9/L [facility] HemeAutoSS Eosinophils/100 WBC (Bld) 0.8 % Normal 0.0 - 8.0 % [facility] Eosinophils/Leukocyt es Auto (Bld) [Pure # fraction] 0.1 E9/L Normal 0.0 - 0.5 E9/L [facility] Lymphocytes/100 WBC (Bld) 10.7 % Low 14.0 - 50.0 % [facility]eAutoSS Lymphocytes/Leukocyt es Auto (Bld) [Pure # fraction] 1.5 E9/L Normal 1.0 - 4.0 E9/L [facility]eAutoSS Monocytes/100 WBC (Bld) 5.9 % Normal 4.0 - 14.0 % [facility]eAutoSS Monocytes/Leukocytes Auto (Bld) [Pure # fraction] 0.8 E9/L Normal 0.2 - 1.0 E9/L [facility] Neutrophils/100 WBC (Bld) 82.0 % High 36.0 - 75.0 % [facility] Neutrophils/Leukocyt es Auto (Bld) [Pure # fraction] 11.8 E9/L High 2.0 - 7.5 E9/L [facility] HEMATOLOGYOrdered By: Carolyn Julian on 02-27-2023 Erythrocyte distribution width (RBC) [Ratio] 15.3 % High 10.9 - 14.2 % [facility] Hematocrit (Bld) [Volume fraction] 34.3 % Normal 34.0 - 46.0 % [facility] Hemoglobin (Bld) [Mass/Vol] 11.2 g/dL Low 12.0 - 16.0 gm/dL [facility] MCH (RBC) [Entitic mass] 26.8 pg Low 27.0 - 34.0 pg [facility] MCHC (RBC) [Mass/Vol] 32.6 g/dL Normal 31.4 - 36.0 gm/dL [facility] MCV (RBC) [Entitic vol] 82.0 fL Normal 80.0 - 100.0 fL [facility] Platelet mean volume (Bld) [Entitic vol] 8.4 fL Normal 6.4 - 10.8 fL [facility]eAuto[facility] Platelets (Bld) [#/Vol] 384.0 E9/L Normal 150.0 - 500.0 E9/L [facility] RBC (Bld) [#/Vol] 4.2 E12/L Low 4.3 - 5.9 E12/L [facility] WBC corrected for nucl RBC Auto (Bld) [#/Vol] 14.3 E9/L High 4.0 - 11.0 E9/L [facility] PT & PTTon 02-27-2023 aPTT Coag (PPP) [Time] 26.9 second(s) Normal 25.1-36.5 [facility] Comment on above: Result Comment: Para meter 15 days - 4 weeks 1 - 5 months 6 - 11 months 1 - 5 years 6 - 10 years 11 - 17 years PTT Mean: 35.4 (27.6-45.6) Mean: 33.5 (24.8-40.7) Mean: 32.4 (25.1-40.7) Mean: 31.6 (24.0-39.2) Mean: 31.6 (26.9-38.7) Mean: 31.0 (24.6-38.4) Pediatric Reference ranges were obtained from a study by Fab Raphael et al. prepared from 1437 samples obtained at 7 different centers using the same coagulation reagent and instrumentation as [facility]. Currently there are no coagulation studies available worldwide for children to 14 days, and no normal ranges. Heparin therapeutic range (represented by Anti-Factor Xa activity of 0.2 - 0.4 U/mL) corresponds to PTT of 56.6 - 109.0 sec. Performed By: #### 2 [id number], [id number], [id number], [id number], [id number] ####[facility] [address] [place] [address] INR Coag (PPP) [Relative time] 1.1 {INR} Invalid Interpretation Code [facility] Comment on above: Result Comment: INR results are specifically intended to assess patients stabilized on long-term Anticoagulation therapy suggested INR?s ?Less Intensive Anticoagulation? 2.0 ? 3.0 Conventional Range 3.0 ? 4.5 Performed By: #### 2 [id number], [id number], [id number], [id number], [id number] ####[facility] [address] [place] [address] PT Coag (PPP) [Time] 12.1 second(s) Normal 9.4-12.5 [facility] Comment on above: Result Comment: 15 d ays - 4 weeks 1 - 5 months 6 -11 months 1 ? 5 years 6 ? 10 years 11 -17 years Mean: 11.2 (9.5 ? 12.6) Mean: 11.0 (9.7 ? 12.8) Mean: 11.0 (9.8 ? 13.0) Mean: 11.3 (9.9 ? 13.4) Mean: 11.7 (10.0 ? 14.6) Mean: 11.8 (10.0 - 14.1) Pediatric Reference ranges were obtained from a study by Fab Raphael et al. prepared from 1437 samples obtained at 7 different centers using the same coagulation reagent and instrumentation as [facility]. Currently there are no coagulation studies available worldwide for children to 14 days, and no normal ranges. Performed By: #### 2 [id number], [id number], [id number], [id number], [id number] ####[facility] [address] [place] [address] UA With Cult Reflexon 2022 Bacteria LM Ql (Urine sed) TRACE Normal Trace [facility] Comment on above: Performed By: #### 1 [id number], [id number] ####[facility] [address] [place] [address] Bilirubin Ql (U) Negative Normal Negative [facility] Comment on above: Performed By: #### 1 [id number], [id number] ####[facility] [address] [place] [address] Clarity (U) SL CLOUDY Abnormal Clear [facility] Comment on above: Performed By: #### 1 [id number], [id number] ####[address] [address] Color (U) YELLOW Normal Yellow [facility] Comment on above: Performed By: #### 1 [id number], [id number] ####[address] [address] Epithelial cells.squamous LM.HPF (Urine sed) [#/Area] 5-8 Normal 0-2 [facility] Comment on above: Performed By: #### 1 [id number], [id number] ####[facility] [address] [place] [address] Glucose Test strip (U) [Mass/Vol] Negative Normal Negative [facility] Comment on above: Performed By: #### 1 [id number], [id number] ####[facility] [address] [place] [address] Hemoglobin Ql (U) 3+ Abnormal Negative [facility] Comment on above: Performed By: #### 1 [id number], [id number] ####[facility] [address] [place] [address] Ketones (U) [Mass/Vol] Negative Normal Negative [facility] Comment on above: Performed By: #### 1 [id number], [id number] ####[facility] [address] [place] [address] [place].plasma/Lithi um.RBC (Bld) [Mass ratio] >75 Abnormal 0-3 [facility] Comment on above: Performed By: #### 1 [id number], [id number] ####[facility] [address] [place] [address] Mucus Ql (Urine sed) TRACE Normal [facility] Comment on above: Performed By: #### 1 [id number], [id number] ####[facility] [address] [place] [address] Nitrite Ql (U) Negative Normal Negative [facility] Comment on above: Performed By: #### 1 [id number], [id number] ####[facility] [address] [place] [address] pH (U) 5.5 [pH] Invalid Interpretation Code 5.0-9.0 [facility] Comment on above: Performed By: #### 1 [id number], [id number] ####[facility] [address] [place] [address] Protein (U) [Mass/Vol] TRACE Abnormal Negative [facility] Comment on above: Performed By: #### 1 [id number], [id number] ####[facility] [address] [place] [address] Specific gravity (U) [Rel density] >=1.030 Invalid Interpretation Code 1.005-1.03 0 [facility] Comment on above: Performed By: #### 1 [id number], [id number] ####[facility] [address] [place] [address] Type of Urine collection method Clean Catch Normal [facility] Comment on above: Performed By: #### 1 [id number], [id number] ####[facility] [address] [place] [address] Urobilinogen Qn (U) 0.2 {Linda'U}/dL Normal 0.0-1.0 [facility] Comment on above: Performed By: #### 1 [id number], [id number] ####[facility] [address] [place] [address] WBC Auto Ql (U) Negative Normal Negative [facility] Comment on above: Performed By: #### 1 [id number], [id number] ####[facility] [address] [place], [place] [id number] WBC LM.HPF (Urine sed) [#/Area] 6-15 Abnormal 0-5 [facility] Comment on above: Performed By: #### 1 [id number], [id number] ####[facility] [address] [place] [address] URINALYSISOrdered By: Neel Johnson on 02-27-2023 Bacteria LM Ql (Urine sed) Trace /HPF Normal Trace/HPF [facility] UA Auto SS Bilirubin Ql (U) Negative (02/27/23 3:21 PM) Normal Negative [facility] UA Auto SS Clarity (U) Slightly Cloudy *ABN* (02/27/23 3:21 PM) Invalid Interpretation Code Clear [facility] UA Auto SS Color (U) Yellow (02/27/23 3:21 PM) Normal Yellow [facility] UA Auto SS Epithelial cells.squamous LM.HPF (Urine sed) [#/Area] 5-8 /HPF Normal 0-2/HPF [facility] UA Auto SS Glucose Test strip (U) [Mass/Vol] Negative (02/27/23 3:21 PM) Normal Negative [facility] UA Auto SS Hemoglobin Ql (U) 3+ *ABN* (02/27/23 3:21 PM) Invalid Interpretation Code Negative [facility] UA Auto SS Ketones (U) [Mass/Vol] Negative (02/27/23 3:21 PM) Normal Negative [facility] UA Auto SS [place].plasma/Lithi um.RBC (Bld) [Mass ratio] >75 /HPF Invalid Interpretation Code 0-3/HPF [facility] UA Auto SS Mucus Ql (Urine sed) Trace (02/27/23 3:21 PM) Normal [facility] UA Auto SS Nitrite Ql (U) Negative (02/27/23 3:21 PM) Normal Negative [facility] UA Auto SS pH (U) 5.5 *NA* (02/27/23 3:21 PM) Invalid Interpretation Code 5.0 - 9.0 [facility] UA Auto SS Protein (U) [Mass/Vol] Trace *ABN* (02/27/23 3:21 PM) Invalid Interpretation Code Negative [facility] UA Auto SS Specific gravity (U) [Rel density] >=1.030 *NA* (02/27/23 3:21 PM) Invalid Interpretation Code 1.005 - 1.030 [facility] UA Auto SS UA Spec Desc Clean Catch (02/27/23 3:21 PM) Normal [facility] UA Auto SS Urobilinogen Qn (U) 0.6503793 {Linda'U}/dL Normal 0.0 - 1.0 EU/dL [facility] UA Auto SS WBC Auto Ql (U) Negative (02/27/23 3:21 PM) Normal Negative [facility] UA Auto SS WBC LM.HPF (Urine sed) [#/Area] 6-15 /HPF Invalid Interpretation Code 0-5/HPF [facility] UA Auto SS eGFRon 02-27-2023 GFR/1.73 sq M.predicted among non-blacks MDRD (S/P/Bld) [Vol rate/Area] 102 mL/min/1.73 m2 Normal >=59 [facility] Comment on above: Order Comment: Order added by Discern Expert. 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 Kidney failure is indicated at less than 15 mL/min/1.73m2. Performed By: #### 2 [id number], [id number], [id number], [id number], [id number] ####[facility] [address] [place] [address] CHEMISTRYOrdered By: SYSTEM SYSTEM on 08-16-2022 25-hydroxyvitamin D3 [Mass/Vol] 43.0 ng/mL Normal 30.0 - 100.0 ng/mL [facility] Remisol Albumin [Mass/Vol] 4.1 g/dL Normal 3.3 - 5.0 gm/dL [facility] Remisol Albumin/Globulin [Mass ratio] 1.4 {ratio} Normal 1.1 - 2.2 [facility] Remisol ALP [Catalytic activity/Vol] 64 [iU]/d Normal 21 - 98 Int._Unit/ L [facility] Remisol ALT No additional P-5'-P [Catalytic activity/Vol] 17 [iU]/d Normal 6 - 46 Int._Unit/ L [facility] Remisol Anion gap [Moles/Vol] 13 mmol/L Normal 6 - 16 mEq/L [facility] Remisol AST [Catalytic activity/Vol] 20 [iU]/d Normal 5 - 43 Int._Unit/ L [facility] Remisol Bilirubin [Mass/Vol] 0.4 mg/dL Normal 0.0 - 1 .1 mg/dL [facility] Remisol Calcium [Mass/Vol] 9.2 mg/dL Normal 8.9 - 11. 1 mg/dL [facility]isol Chloride [Moles/Vol] 107 mmol/L Normal 101 - 1 11 mmol/L [facility] Cholesterol [Mass/Vol] 180 mg/dL Normal 120 - 200 mg/dL [facility] Cholesterol in HDL [Mass/Vol] 40 mg/dL Invalid Interpretation Code [facility] Cholesterol in LDL [Mass/Vol] 117 mg/dL Normal <=129mg/dL [facility] Cholesterol in VLDL [Mass/Vol] 24 mg/dL Normal 7 - 40 mg/dL [facility] Remisol CO2 [Moles/Vol] 27 mmol/L Normal 21 - 31 mmol/L [facility] Remisol Creatinine [Mass/Vol] 0.7 mg/dL Normal 0.5 - 1.3 mg/dL [facility] Remisol GFR/1.73 sq M.predicted among non-blacks MDRD (S/P/Bld) [Vol rate/Area] 102 mL/min/1.73 m2 Normal >=59mL/min /1.73 m2 [facility] Chem S Globulin (S) [Mass/Vol] 2.9 g/dL Normal 1.4 - 4.0 gm/dL [facility] Remisol Glucose [Mass/Vol] 114 mg/dL Normal 55 - 199 mg/dL [facility] Remisol Iron [Mass/Vol] 36 ug/dL Normal 35 - 153 mcg/dL [facility] Potassium [Moles/Vol] 4.2 mmol/L Normal 3.5 - 5.3 mmol/L [facility] Protein [Mass/Vol] 7.0 g/dL Normal 6.0 - 7.8 gm/dL [facility] Sodium [Moles/Vol] 143 mmol/L Normal 135 - 145 mmol/L [facility] Remisol T4 [Mass/Vol] 9.2 ug/dL High 4.6 - 9.1 mcg/dL [facility] Triglyceride [Mass/Vol] 120 mg/dL Normal <=149mg/dL [facility] TSH Qn 1.04 m[IU]/L Normal 0.34 - 5.60 mcIU/mL [facility] Urea nitrogen [Mass/Vol] 18 mg/dL Normal 5 - 21 mg/dL [facility] Urea nitrogen/Creatinine [Mass ratio] 26 mg/mg High 10 - 20 [facility] CHEMISTRYOrdered By: Dwayne Ohara on 08-16-2022 HbA1c (Bld) [Mass fraction] 5.5 % Normal <=5.9% [facility] HEMATOLOGYOrdered By: SYSTEM SYSTEM on 08-16-2022 Basophils/100 WBC (Bld) 0.3 % Normal 0.0 - 2.0 % [facility] Basophils/Leukocytes Auto (Bld) [Pure # fraction] 0.0 E9/L Normal 0.0 - 0.2 E9/L [facility] Eosinophils/100 WBC (Bld) 1.5 % Normal 0.0 - 8.0 % [facility] Eosinophils/Leukocyt es Auto (Bld) [Pure # fraction] 0.1 E9/L Normal 0.0 - 0.5 E9/L [facility] Lymphocytes/100 WBC (Bld) 12.5 % Low 14.0 - 50.0 % [facility] Lymphocytes/Leukocyt es Auto (Bld) [Pure # fraction] 1.1 E9/L Normal 1.0 - 4.0 E9/L [facility] Monocytes/100 WBC (Bld) 6.8 % Normal 4.0 - 14.0 % [facility] Monocytes/Leukocytes Auto (Bld) [Pure # fraction] 0.6 E9/L Normal 0.2 - 1.0 E9/L [facility] Neutrophils/100 WBC (Bld) 78.9 % High 36.0 - 75.0 % [facility] Neutrophils/Leukocyt es Auto (Bld) [Pure # fraction] 7.1 E9/L Normal 2.0 - 7.5 E9/L [facility] HEMATOLOGYOrdered By: Carolyn Jluian on 08-16-2022 Erythrocyte distribution width (RBC) [Ratio] 15.8 % High 10.9 - 14.2 % [facility] Hematocrit (Bld) [Volume fraction] 34.9 % Normal 34.0 - 46.0 % [facility] Hemoglobin (Bld) [Mass/Vol] 11.2 g/dL Low 12.0 - 16.0 gm/dL [facility] MCH (RBC) [Entitic mass] 26.5 pg Low 27.0 - 34.0 pg [facility] MCHC (RBC) [Mass/Vol] 32.0 g/dL Normal 31.4 - 36.0 gm/dL [facility] MCV (RBC) [Entitic vol] 82.8 fL Normal 80.0 - 100.0 fL [facility] Platelet mean volume (Bld) [Entitic vol] 8.7 fL Normal 6.4 - 10.8 fL [facility] Platelets (Bld) [#/Vol] 363.0 E9/L Normal 150.0 - 500.0 E9/L [facility] RBC (Bld) [#/Vol] 4.2 E12/L Low 4.3 - 5.9 E12/L [facility] WBC corrected for nucl RBC Auto (Bld) [#/Vol] 9.0 E9/L Normal 4.0 - 11.0 E9/L [facility] HEMATOLOGYOrdered By: SYSTEM SYSTEM on 11-22-2021 Basophils/100 WBC (Bld) 0.3 % Normal 0.0 - 2.0 % [facility] Basophils/Leukocytes Auto (Bld) [Pure # fraction] 0.0 E9/L Normal 0.0 - 0.2 E9/L [facility] Eosinophils/100 WBC (Bld) 2.5 % Normal 0.0 - 8.0 % [facility] Eosinophils/Leukocyt es Auto (Bld) [Pure # fraction] 0.3 E9/L Normal 0.0 - 0.5 E9/L [facility] Lymphocytes/100 WBC (Bld) 15.5 % Normal 14.0 - 50.0 % [facility] Lymphocytes/Leukocyt es Auto (Bld) [Pure # fraction] 1.9 E9/L Normal 1.0 - 4.0 E9/L [facility] Monocytes/100 WBC (Bld) 8.2 % Normal 4.0 - 14.0 % [facility] Monocytes/Leukocytes Auto (Bld) [Pure # fraction] 1.0 E9/L Normal 0.2 - 1.0 E9/L [facility] Neutrophils/100 WBC (Bld) 73.5 % Normal 36.0 - 75.0 % [facility] Neutrophils/Leukocyt es Auto (Bld) [Pure # fraction] 9.2 E9/L High 2.0 - 7.5 E9/L [facility] HEMATOLOGYOrdered By: Carolyn Julian on 11-22-2021 Erythrocyte distribution width (RBC) [Ratio] 18.3 % High 10.9 - 14.2 % [facility] Hematocrit (Bld) [Volume fraction] 24.7 % Low 34.0 - 46.0 % [facility] Hemoglobin (Bld) [Mass/Vol] 7.7 g/dL Low 12.0 - 16.0 gm/dL [facility] MCH (RBC) [Entitic mass] 22.4 pg Low 27.0 - 34.0 pg [facility] MCHC (RBC) [Mass/Vol] 31.3 g/dL Low 31.4 - 36.0 gm/dL [facility] MCV (RBC) [Entitic vol] 71.6 fL Low 80.0 - 100.0 fL [facility] Platelet mean volume (Bld) [Entitic vol] 7.8 fL Normal 6.4 - 10.8 fL [facility] Platelets (Bld) [#/Vol] 525.0 E9/L High 150.0 - 500.0 E9/L [facility] RBC (Bld) [#/Vol] 3.4 E12/L Low 4.3 - 5.9 E12/L [facility] WBC corrected for nucl RBC Auto (Bld) [#/Vol] 12.4 E9/L High 4.0 - 11.0 E9/L [facility] Vital Signs Date Time Vital Sign Value Performing Clinician Facility 10-19-2023 09:16-0400 Diastolic blood pressure 90 mm[Hg] Kati Craig [facility] 10-19-2023 09:16-0400 Mean blood pressure 116 mm[Hg] Kati Craig [facility] 10-19-2023 09:16-0400 Systolic blood pressure 167 mm[Hg] Kati Craig [facility] 10-01-2023 09:14-0400 Diastolic blood pressure 75 mm[Hg] Kati Craig MD Work Phone: [facility] 10-01-2023 09:14-0400 Systolic blood pressure 122 mm[Hg] Kati Craig MD Work Phone: [facility] 10-01-2023 09:08-0400 Body height 175.3 cm Kati Craig MD Work Phone: [facility] 10-01-2023 09:08-0400 Body mass index (BMI) [Ratio] 49.47 kg/m2 Kati Craig MD Work Phone: [facility] 10-01-2023 09:08-0400 Body weight 151.96 kg Kati Craig MD Work Phone: [facility] 10-01-2023 09:08-0400 Heart rate 75 /min Kati Craig MD Work Phone: [facility] 10-01-2023 09:08-0400 SaO2% (BldA) [Mass fraction] 99 % Kati Craig MD Work Phone: [facility] 08-25-2023 13:55-0400 Heart rate 65 /min Heide Hoy [facility] 08-25-2023 13:55-0400 SaO2% (BldA) [Mass fraction] 99 % Heide Hoy [facility] 08-25-2023 13:55-0400 Respiratory rate 16 /min Heide Hoy [facility] 08-25-2023 13:53-0400 Blood Pressure Location Heide Hoy [facility] 08-25-2023 13:53-0400 Diastolic blood pressure 79 mm[Hg] Heide Hoy [facility] 08-25-2023 13:53-0400 Mean blood pressure 97 mm[Hg] Heide Hoy [facility] 08-25-2023 13:53-0400 Systolic blood pressure 135 mm[Hg] Heide Hoy [facility] 08-25-2023 13:53-0400 Body temperature 97.7 [degF] Heide Hoy [facility] 08-18-2023 14:55-0400 Heart rate 66 /min Heide Hoy [facility] 08-18-2023 14:55-0400 SaO2% (BldA) [Mass fraction] 97 % Heide Hoy [facility] 08-18-2023 14:52-0400 Diastolic blood pressure 71 mm[Hg] Heide Hoy [facility] 08-18-2023 14:52-0400 Mean blood pressure 87 mm[Hg] Heide Hoy [facility] 08-18-2023 14:52-0400 Systolic blood pressure 120 mm[Hg] Heide Hoy [facility] 08-18-2023 14:04-0400 Heart rate 67 /min Hiede Hoy [facility] 08-18-2023 14:04-0400 SaO2% (BldA) [Mass fraction] 97 % Heide Hoy [facility] 08-18-2023 14:02-0400 Diastolic blood pressure 76 mm[Hg] Heide Hoy [facility] 08-18-2023 14:02-0400 Mean blood pressure 91 mm[Hg] Heide Hoy [facility] 08-18-2023 14:02-0400 Systolic blood pressure 121 mm[Hg] Heide Hoy [facility] 08-18-2023 14:02-0400 Respiratory rate 16 /min Heide Hoy [facility] 04-24-2023 16:39-0500 Heart rate 72 /min Tai ANNE [facility] 04-24-2023 16:39-0500 SaO2% (BldA) [Mass fraction] 95 % Tai ANNE [facility] 04-24-2023 16:39-0500 Diastolic blood pressure 79 mm[Hg] Tai ANNE [facility] 04-24-2023 16:39-0500 Mean blood pressure 95 mm[Hg] Tai ANNE [facility] 04-24-2023 16:39-0500 Systolic blood pressure 128 mm[Hg] Tai ANNE [facility] 04-24-2023 16:39-0500 Respiratory rate 16 /min Tai ANNE [facility] 04-24-2023 16:39-0500 Body temperature 98.06 [degF] Tai ANNE [facility] 04-24-2023 15:55-0500 Heart rate 72 /min Tai ANNE [facility] 04-24-2023 15:55-0500 SaO2% (BldA) [Mass fraction] 94 % Tai ANNE [facility] 04-24-2023 15:53-0500 Diastolic blood pressure 74 mm[Hg] Tai ANNE [facility] 04-24-2023 15:53-0500 Mean blood pressure 90 mm[Hg] Tai ANNE [facility] 04-24-2023 15:53-0500 Systolic blood pressure 123 mm[Hg] Tai ANNE [facility] 04-24-2023 15:53-0500 Body temperature 98.78 [degF] Tai ANNE [facility] 04-24-2023 15:47-0500 Body temperature 98.24 [degF] Tai ANNE [facility] 04-24-2023 15:47-0500 Diastolic blood pressure 62 mm[Hg] Tai ANNE [facility] 04-24-2023 15:47-0500 Heart rate 67 /min Tai ANNE [facility] 04-24-2023 15:47-0500 Mean blood pressure 79 mm[Hg] Tai ANNE [facility] 04-24-2023 15:47-0500 Respiratory rate 12 /min Tai ANNE [facility] 04-24-2023 15:47-0500 SaO2% (BldA) [Mass fraction] 95 % Tai ANNE [facility] 04-24-2023 15:47-0500 Systolic blood pressure 114 mm[Hg] Tai ANNE [facility] 04-24-2023 15:35-0500 Mean blood pressure 85 mm[Hg] Tai ANNE [facility] 04-24-2023 15:35-0500 Respiratory rate 15 /min Tai ANNE [facility] 04-24-2023 15:30-0500 Mean blood pressure 88 mm[Hg] Tai ANNE [facility] 04-24-2023 15:30-0500 Respiratory rate 14 /min Tai ANNE [facility] 04-24-2023 15:15-0500 Respiratory rate 14 /min Tai ANNE [facility] 04-24-2023 15:10-0500 Respiratory rate 14 /min Tai ANNE [facility] 04-24-2023 11:54-0500 Mean blood pressure 106 mm[Hg] Tai ANNE [facility] 04-24-2023 11:54-0500 Blood Pressure Location Tai ANNE [facility] 04-24-2023 11:54-0500 Heart rate 88 /min Tai ANNE [facility] 04-24-2023 11:52-0500 Blood Pressure Location Tai ANNE [facility] 04-24-2023 11:51-0500 Blood Pressure Location Tai ANNE [facility] 04-24-2023 11:50-0500 Body temperature 97.7 [degF] Tai ANNE [facility] 04-07-2023 13:31-0500 Diastolic blood pressure 89 mm[Hg] Tai ANNE [facility] 04-07-2023 13:31-0500 Heart rate 72 /min Tai ANNE [facility] 04-07-2023 13:31-0500 Mean blood pressure 116 mm[Hg] Tai ANNE [facility] 04-07-2023 13:31-0500 Systolic blood pressure 171 mm[Hg] Tai ANNE [facility] 04-07-2023 13:31-0500 Heart rate 83 /min Tai ANNE [facility] 04-07-2023 13:31-0500 SaO2% (BldA) [Mass fraction] 98 % Tai ANNE [facility] 04-07-2023 13:31-0500 Respiratory rate 18 /min Tai ANNE [facility] 04-07-2023 13:30-0500 Body temperature 98.42 [degF] Tai ANNE [facility] 04-07-2023 13:30-0500 Diastolic blood pressure 77 mm[Hg] Tai ANNE [facility] 04-07-2023 13:30-0500 Mean blood pressure 108 mm[Hg] Tai ANNE [facility] 04-07-2023 13:30-0500 Systolic blood pressure 171 mm[Hg] Tai ANNE [facility] 02-27-2023 15:24-0500 Diastolic blood pressure 91 mm[Hg] Pranav Hassane [facility] 02-27-2023 15:24-0500 Heart rate 85 /min Pranav Hassane [facility] 02-27-2023 15:24-0500 Mean blood pressure 115 mm[Hg] Pranav Hassane [facility] 02-27-2023 15:24-0500 Respiratory rate 16 /min Pranav Hassane [facility] 02-27-2023 15:24-0500 SaO2% (BldA) [Mass fraction] 98 % Pranav Maria Isabel [facility] 02-27-2023 15:24-0500 Systolic blood pressure 162 mm[Hg] Pranav Hassane [facility] 02-27-2023 14:18-0500 Body temperature 98.06 [degF] Pranav Hassane [facility] 02-27-2023 14:18-0500 Diastolic blood pressure 96 mm[Hg] Pranav Hassane [facility] 02-27-2023 14:18-0500 Heart rate 87 /min Pranav Hassane [facility] 02-27-2023 14:18-0500 Respiratory rate 16 /min Pranav Hassane [facility] 02-27-2023 14:18-0500 SaO2% (BldA) [Mass fraction] 97 % Pranav Maria Isabel [facility] 02-27-2023 14:18-0500 Systolic blood pressure 166 mm[Hg] Pranav Maria Isabel [facility] Encounters Encounter Date Encounter Type Care Provider Facility Start: 12-17-2023 End: 03-16-2024 [facility] [place] Start: 11-28-2023 End: 11-28-2023 ambulatory Heide Hoy [place] Start: 11-28-2023 End: 11-28-2023 Patient encounter procedure Heide Hoy [facility] Start: 10-31-2023 End: 02-26-2024 ambulatory Heide Hoy [facility] Start: 10-31-2023 End: 02-26-2024 Recurring Heide Hoy [facility] Start: 10-19-2023 End: 10-19-2023 ambulatory Kati Craig [facility] Start: 10-19-2023 End: 10-19-2023 Patient encounter procedure Kati Craig [facility] Start: 10-15-2023 End: 10-15-2023 ambulatory Kati Craig [place] Start: 10-15-2023 End: 10-15-2023 Patient encounter procedure Kati Craig [facility] Start: 10-01-2023 End: 10-01-2023 Orders Only Jonas Truong CMA [facility] Comment on above: Swelling of both low er extremities (Primary Dx); PAD (peripheral artery disease) [place] Start: 10-01-2023 End: 10-01-2023 Office outpatient new 45 minutes Kati Craig MD Work Phone: [facility] Comment on above: Swelling of both low er extremities (Primary Dx); Spider varicose veins; PAD (peripheral artery disease) ([facility] Start: 09-26-2023 End: 09-26-2023 ambulatory Heide Hoy [place] Start: 09-26-2023 End: 09-26-2023 Patient encounter procedure Heide Hoy [facility] Start: 09-19-2023 End: 09-19-2023 ambulatory Heide Hoy [facility] Start: 09-19-2023 End: 09-19-2023 Patient encounter procedure Heide Hoy [facility] Start: 09-12-2023 End: 09-12-2023 ambulatory Heide Hoy [place] Start: 09-12-2023 End: 09-12-2023 Patient encounter procedure Heide Hoy [facility] Start: 09-05-2023 End: 09-05-2023 ambulatory Heide Hoy [place] Start: 09-05-2023 End: 09-05-2023 Patient encounter procedure Heide Hoy [facility] Start: 08-20-2023 End: 08-20-2023 ambulatory Heide Hoy [place] Start: 08-20-2023 End: 08-20-2023 Patient encounter procedure Heide Hoy [facility] Start: 08-18-2023 End: 11-23-2023 ambulatory Heide Hoy [place] Start: 08-18-2023 End: 08-18-2023 Patient encounter procedure Heide Hoy [facility] Start: 08-18-2023 End: 11-23-2023 Recurring Heide Hoy [facility] Start: 08-17-2023 End: 08-17-2023 ambulatory Heide Hoy [place] Start: 08-17-2023 End: 08-17-2023 Patient encounter procedure Heide Hoy [facility] Start: 08-15-2023 End: 08-15-2023 ambulatory Heide Hoy [place] Start: 08-15-2023 End: 08-15-2023 Patient encounter procedure Heide Hoy [facility] Start: 07-15-2023 End: 07-15-2023 ambulatory JADEN CASTANEDA [place] Start: 07-15-2023 End: 07-15-2023 Patient encounter procedure JADEN CASTANEDA [facility] Start: 06-29-2023 End: 06-29-2023 ambulatory JADEN CASTANEDA [place] Start: 06-29-2023 End: 06-29-2023 Patient encounter procedure JADEN CASTANEDA [facility] Start: 04-24-2023 End: 04-24-2023 Admission to same day surgery center Tai R ANNE [facility] Start: 04-24-2023 End: 04-24-2023 ambulatory Tai R ANNE [place] Start: 04-07-2023 End: 04-07-2023 ambulatory Tai R ANNE [place] Start: 04-07-2023 End: 04-07-2023 Patient encounter procedure Tai R ANNE [facility] Start: 03-04-2023 End: 03-04-2023 ambulatory Heide Hoy [place] Start: 03-04-2023 End: 03-04-2023 Patient encounter procedure Heide Hoy [facility] Start: 02-27-2023 End: 02-27-2023 Emergency department patient visit Pranav Nicolas [facility] Start: 12-18-2022 End: 03-18-2023 ambulatory Kemar Magallanes [place] Start: 08-16-2022 End: 08-16-2022 Patient encounter procedure Heide Gutierrez [facility] Start: 12-11-2021 End: 12-11-2021 Patient encounter procedure Jaiden KELLY [facility] Start: 11-22-2021 End: 11-22-2021 Patient encounter procedure Heide Gutierrez [facility] Start: 08-22-[address] HEIDE GUTIERREZ Facility : Procedures Date Procedure Procedure Detail Performing Clinician Start: 04-24-2023 Dilatation (morphologic abnormality) Tai RODRÍGUEZ Start: 12-05-2021 Colonoscopy Jaiden TAMMYL Comment on above: diverticulosis Start: 12-05-2021 Esophagogastroduodenoscopy Jaiden MUNOZL Comment on above: gastritis, biopsies taken Start: 12-05-2021 Excision of lipoma Jaiden TAMMYL Comment on above: lipoma removal of right posterior thign None (qualifier value) Eusebio KELLY Plan of Treatment Date Care Activity Detail Author Start: 09-30-2024 Adult BMI Screening Adult BMI Screen ing [facility] Start: 09-30-2024 [facility] Start: 12-06-2023 Influenza vaccination Influenza Vacc ine [employer] Start: 10-01-2023 End: 09-30-2024 US.doppler Extremity arteries - bilateral for physiologic artery study Vas art doppler lwr bilat mult lev/PVR Vascular Ultrasound Routine Swelling of both lower extremities PAD (peripheral artery disease) ([facility]) Expected: 10/01/2023, Expires: 09/30/2024 [facility] Work Phone: Comment on above: Expected: 10/01/2023 , Expires: 09/30/2024 Start: 10-01-2023 End: 09-30-2024 US.doppler Lower extremity vein - bilateral Vas venous duplex insufficiency lwr bi Vascular Ultrasound Routine Swelling of both lower extremities PAD (peripheral artery disease) ([facility]) Expected: 10/01/2023, Expires: 09/30/2024 [facility] Comment on above: Expected: 10/01/2023 , Expires: 09/30/2024 Start: 12-05-2022 COVID-19 Vaccine ( season) COVID-19 Vaccine ( season) [facility] Start: 07-25-2017 Administration of varicella zoster vaccine Zoster (Shingles) Vaccine (1 of 2) [facility] Start: 07-25-1988 Screening for malign ant neoplasm of cervix Pap Smear [facility] Start: 07-25-1986 DTaP,Tdap and Td Vac cines (1 - Tdap) DTaP,Tdap and Td Vaccines (1 - Tdap) [facility] Start: 07-25-1985 Adult BMI Follow Up Plan Adult BMI Follow Up Plan [facility] Start: 1979 Depression Screening Depression Scre ening [facility] Immunizations Immunization Date Immunization Notes Care Provider Chris hoang 01-15-2024 influenza virus vaccine, unspecified formulation; Translations: [Fluzone TIV PF ] Heide Gutierrez [facility] Comment on above: Reason for Medicatio n: Prophylaxis 01-13-2022 COVID-19, mRNA, LNP- S, bivalent booster, PF, 30 mcg/0.3 mL dose Heide Gutierrez [facility] Comment on above: Reason for Medicatio n: Prophylaxis 01-13-2022 influenza virus vaccine, unspecified formulation Heide Gutierrez [facility] Comment on above: Reason for Medicatio n: Prophylaxis 01-13-2022 influenza, injectabl e, quadrivalent, preservative free Kati Craig MD Work Phone: [facility] 02-25-2021 COVID-19, mRNA, LNP- S, PF, 30 mcg/0.3 mL dose Heide Hoy [facility] Comment on above: Reason for Medicatio n: Prophylaxis 02-01-2021 influenza virus vaccine, unspecified formulation Heide Hoy [facility] Comment on above: Reason for Medicatio n: Prophylaxis 02-01-2021 influenza, injectabl e, quadrivalent, preservative free Kati Craig MD Work Phone: [facility] 07-06-2020 COVID-19, mRNA, LNP- S, PF, 30 mcg/0.3 mL dose Heide Hoy [facility] Comment on above: Reason for Medicatio n: Other (see comment) 06-15-2020 COVID-19, mRNA, LNP- S, PF, 30 mcg/0.3 mL dose Heide Hoy [facility] Comment on above: Reason for Medicatio n: Other (see comment) 02-08-2020 influenza virus vaccine, unspecified formulation Kati Craig MD Work Phone: [facility] 02-09-2009 novel [id number], preservative-free, injectable Kati Craig MD Work Phone: [facility] Payers Date Payer Category Payer Unknown [employer] [id number] 2023-Present [phone] [address] [place] [address] [id number] 2022 Unknown [id number] 1967 Unknown [id number] [id number] 1967 Unknown [id number] 2.16.840.1.715350.3.579.2. 1967 Unknown [id number] 2.16.840.1.600204.3.579. 1967 Unknown [id number] 2.16.840.1.022698.3.579. 1967 Unknown [id number] 2.16.840.1.973034.3.579. 1967 Unknown [id number] 2..840.1.320553.3.579. 1967 Unknown [id number] 2..840.1.430633.3.579. 1967 Unknown [id number] 2..840.1.049422.3.579. 1967 Unknown [id number] 2..840.1.456110.3.579. 1967 Unknown [id number] 2.840.1.731476.3.579. 1967 Unknown [id number] 2..840.1.323307.3.579. 1967 Unknown [id number] 2..840.1.243111.3.579. 1967 Unknown [id number] 2..840.1.886318.3.579. 1967 Unknown [id number] 2..840.1.005242.3.579. 1967 Unknown [id number] 2.16.840.1.046063.3.579. 1967 Unknown [id number] 2.16.840.1.885787.3.579. 1967 Unknown [id number] 2.16.840.1.121653.3.579. 1967 Unknown [id number] 2.16.840.1.432432.3.579.2.727 1967 Unknown [id number] 2.16.840.1.147823.3.579.2.727 1967 Unknown [id number] 2.16.840.1.082480.3.579.2.727 1967 Unknown [id number] 2.16.840.1.022565.3.579.2.727 1967 Unknown [id number] 2.16.840.1.113498.3.579.2.727 1957 Self-pay Social History Date Type Detail Facility Tobacco smoking status No Smokin g Status Entered [facility] Start: 10-01-2023 Sex Assigned At Female F [facility] Start: 11-27-2021 End: 10-01-2023 Tobacco smoking status Never smoked tobacco (finding) [facility] Tobacco smoking status Never [facility] [place] Start: 10-01-2023 Tobacco use and exposure Smokeless tobacco non-user [facility] Start: 10-01-2023 Alcoholic beverage intake Current drinker of alcohol (finding) [facility] Start: 10-01-2023 Alcoholic beverage intake [facility] Start: 1965 Sex assigned at Female P [facility] Start: 09-22-2023 Gender identity Identifies as female gender (finding) [facility] Start: 09-22-2023 Sexual orientation Heterosexual (fin ding) [facility] Functional Status Date Assessment Result Facility 04-07-2023 Functional Status No [facility] 02-27-2023 Functional Status N/A [facility] Clinical Notes 08-16-2022 to 11-28-2023 Assessment & Plan Note - Kati Craig MD - 10/01/2023 9:29 AM EDTAssessment & Plan Note - Kati Craig MD - 10/01/2023 9:29 AM EDTMshanna Craig MD - 10/01/2023 9:10 AM EDT Note Date & Type Note Facility 11-28-2023 Evaluation + Plan note Diagnostic Tests [id number] 11/28/23 [facility] 10-01-2023 Evaluation + Plan note Associated Problem(s): PAD (peripheral artery disease) ([facility]) PVR [facility] 10-01-2023 Evaluation + Plan note Associated Problem(s): Swelling of both lower extremities Venous reflux ultrasound weight loss and exercise leg elevation [facility] 10-01-2023 Miscellaneous Notes Associate d Problem(s): PAD (peripheral artery disease) ([facility] PVR Associated Problem(s): Swelling of both lower extremities Venous reflux ultrasound weight loss and exercise leg elevation documented in this encounter [facility] 10-01-2023 History of Presen t illness Narrative Images from the original note were not included. To: HEIDE GUTIERREZ MD HPI: Sabra Carpenter is a 58 y.o. female with Obesity on antidepressant medication comes in with hyperemia of both lower extremities and significant swelling. Never had any testing done. She does not smoke. No history of DVT. Discussed with her that this could be side effects of her medication however I cannot feel pedal pulses. We will get PVR. Will also get venous reflux ultrasound for her leg swelling and she also has some spider veins. Review of Systems: Review of Systems Constitutional: Negative. HENT: Negative. Respiratory: Negative. Cardiovascular: Negative. Gastrointestinal: Negative. Endocrine: Negative. Genitourinary: Negative. Musculoskeletal: Negative. Skin: Negative. Neurological: Negative. Hematological: Negative. Medications: Current Outpatient Medications on File Prior to Visit Medication Sig Dispense Refill amitriptyline (ELAVIL) 25 mg tablet Take 1 tablet (25 mg total) by mouth nightly. ferrous sulfate 325 (65 FE) mg EC tablet Take 1 tablet (325 mg total) by mouth in the morning and 1 tablet (325 mg total) in the evening. Take with meals. phentermine (ADIPEX-P) 37.5 mg tablet Take 1 tablet (37.5 mg total) by mouth every morning before breakfast. venlafaxine XR (EFFEXOR XR) 75 mg 24 hr capsule Take 2 capsules (150 mg total) by mouth in the morning. acetaminophen (TYLENOL ARTHRITIS) 650 mg 8 hr tablet Take 1 tablet (650 mg total) by mouth every 8 (eight) hours as needed. ARIPiprazole (ABILIFY) 2 mg tablet Take 1 tablet (2 mg total) by mouth in the morning. carvediloL (COREG) 12.5 mg tablet Take 1 tablet (12.5 mg total) by mouth in the morning and 1 tablet (12.5 mg total) in the evening. Take with meals. magnesium sulfate 100 mg capsule Take by mouth. unknown No current facility-administered medications on file prior to visit. Past Medical History: Past Medical History: Diagnosis Date Raynaud's disease Past Surgical History: No past surgical history on file. Social and Family History: Social History Socioeconomic History Marital status: Unknown Spouse name: Not on file Number of children: Not on file Years of education: Not on file Highest education level: Not on file Occupational History Not on file Tobacco Use Smoking status: Never Smokeless tobacco: Never Substance and Sexual Activity Alcohol use: Yes Alcohol/week: 1.0 standard drink of alcohol Types: 1 Standard drinks or equivalent per week Drug use: Never Sexual activity: Not on file Other Topics Concern Not on file Social History Narrative Not on file Social Determinants of Health Financial Resource Strain: Not on file Food Insecurity: Not on file Transportation Needs: Not on file Physical Activity: Not on file Stress: Not on file Social Connections: Not on file Interpersonal Safety: Not on file Housing Instability: Not on file No family history on file. Recent Labs: Recent and relative labs were reviewed and interpreted and contributed to the assessment and plan below. Vitals: BP 122/75 (BP Site: Left Arm, BP Postition: Sitting, BP CUFF SIZE: M (9-13 inches)) Pulse 75 Ht 175.3 cm (5' 9 ) Wt (!) 152 kg (335 lb) SpO2 99% BMI 49.47 kg/m Body mass index is 49.47 kg/m . Physical Exam: Physical Exam Constitutional: Appearance: Normal appearance. HENT: Head: Normocephalic and atraumatic. Mouth/Throat: Mouth: Mucous membranes are moist. Eyes: Extraocular Movements: Extraocular movements intact. Pupils: Pupils are equal, round, and reactive to light. Cardiovascular: Rate and Rhythm: Normal rate and regular rhythm. Pulmonary: Effort: Pulmonary effort is normal. Breath sounds: Normal breath sounds. Abdominal: General: Abdomen is flat. Bowel sounds are normal. Palpations: Abdomen is soft. Musculoskeletal: General: Normal range of motion. Cervical back: Normal range of motion. Skin: General: Skin is warm and dry. Neurological: General: No focal deficit present. Mental Status: She is alert and oriented to person, place, and time. Mental status is at baseline. Psychiatric: Mood and Affect: Mood normal. Behavior: Behavior normal. Thought Content: Thought content normal. Judgment: Judgment normal. Recent testing: Assessment and Plan: Problem List Swelling of both lower extremities - Primary Current Assessment & Plan Venous reflux ultrasound weight loss and exercise leg elevation PAD (peripheral artery disease) ([facility] Current Assessment & Plan PVR Sabra was seen today for spider varicose veins, feet discoloration and swollen extremities. Diagnoses and all orders for this visit: Swelling of both lower extremities Spider varicose veins - [facility] [place], [place] PAD (peripheral artery disease) ([facility] Kati Craig MD, JANNY, RPVI, FSVS, FACS [facility] This note was created with the assistance of a speech recognition program. While intending to generate a timely document that accurately reflects the content of the visit, no guarantee can be provided that every grammatical or spelling mistake has been or will be identified or corrected. Thank you for your understanding. 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 For 24 hours: no driving, making any important decisions, drinking alcohol and a responsible adult should stay with you today. Please refrain from intercourse, douches, and tampons for the next two weeks. You can expect some vaginal spotting, cramps, or light bleeding for a week and up to ten days after surgery. This is normal. If you are soaking a pad an hour or more frequently you need to call your doctor. Your first period may not be normal, but most women resume their normal cycles within a month or two. It is helpful for your doctor if you keep a written record of your bleeding following surgery. When abnormal bleeding persists for 2-3 cycles, please bring the record to your doctor. Return to the office for post-operative check, and to go over any biopsy results at your scheduled appointment; usually two weeks following surgery. If you are uncertain if an appointment has been made, please call the office. CALL THE DOCTOR if you have severe pain, heavy bleeding, or a temperature of 100.5 or higher. Resume your regular home medication schedule as soon as you are eating a regular diet. You can either take the prescribed medications as directed for pain, or you can take over the counter pain medication such as Motrin, as indicated on the package for pain or cramps. PLEASE CALL FOR ANY PROBLEMS 04/24/2023 15:32:11 Post Op Patient Instructions - FT (CUSTOM) Follow Up Care 03/10/2023 11:49:49 With:Tai RODRÍGUEZ DO R, OBS Address: When:1 to 2 weeks Comments:Call for any problems. [facility] 04-24-2023 Evaluation + Plan note Extrac karlo from: Title:Mando Basic PRE Author:Mando Savage siology ()Tomi Date:04/24/23 Plan [place] [employer] (ASA) physical status classification: Class III. Anesthetic Preoperative Plan: Anesthesia General. [facility]01-18-2024 Note [id number] 04-23-2023 [id number] on above:Other Comment: [id number] Hospital Discharge instructions Patient Education 02/27/2023 15:56:51 Abnormal Uterine Bleeding Abnormal Uterine Bleeding Abnormal uterine bleeding is unusual bleeding from the uterus. It includes bleeding after sex, or bleeding or spotting between menstrual periods. It may also include bleeding that is heavier than normal, menstrual periods that last longer than usual, or bleeding that occurs after menopause. Abnormal uterine bleeding can affect teenagers, women in their reproductive years, women, and women who have reached menopause. Common causes of abnormal uterine bleeding include: . Abnormal growths within the lining of the uterus (polyps). Benign tumors or growths in the uterus (fibroids). These are not cancer. Infection. Cancer. Too much or too little of some hormones in the body (hormonal imbalances). Any type of abnormal bleeding should be checked by a health care provider. Many cases are minor andsimple to treat, but others may be more serious. Treatment will depend on the cause of the bleedingand how severe it is. Follow these instructions at home: Medicines Take lioc-bvy-hzmbxzy and prescription medicines only as told by your health care provider. Ask your health care provider about: ?Taking medicines such as aspirin and ibuprofen. These medicines can thin your blood. Do not take these medicines unless your health care provider tells you to take them. ?Taking apod-uwa-igejvda medicines, vitamins, herbs, and supplements. If you were prescribed iron pills, take them as told by your health care provider. Iron pills help to replace iron that your body loses because of this condition. Managing constipation In cases of severe bleeding, you may be asked to increase your iron intake to treat anemia. Doing this may cause constipation. To prevent or treat constipation, you may need to: Drink enough fluid to keep your urine pale yellow. Take ouqv-oeg-abyfufh or prescription medicines. Eat foods that are high in fiber, such as beans, whole grains, and fresh fruits and vegetables. Limit foods that are high in fat and processed sugars, such as fried or sweet foods. Activity Alter your activity to decrease bleeding if you need to change your sanitary pad more than one timeevery 2 hours: Lie in bed with your feet raised (elevated). Place a cold pack on your lower abdomen. Rest as much as possible until the bleeding stops or slows down. General instructions Do not use tampons, douche, or have sex until your health care provider says these things are okay. Change your sanitary pads often. Get regular exams. These include pelvic exams and cervical cancer screenings. It is up to you to get the results of any tests that are done. Ask your health care provider, or the department that is doing the tests, when your results will be ready. Monitor your condition for any changes. For 2 months, write down: ?When your menstrual period starts. ?When your menstrual period ends. ?When any abnormal vaginal bleeding occurs. ?What problems you notice. Keep all follow-up visits. This is important. Contact a health care provider if: You have bleeding that lasts for more than one week. You feel dizzy at times. You feel nauseous or you vomit. You feel light-headed or weak. You notice any other changes that show that your condition is getting worse. Get help right away if: You faint. You have bleeding that soaks through a sanitary pad every hour. You have pain in the abdomen. You have a fever or chills. You become sweaty or weak. You pass large blood clots from your vagina. These symptoms may represent a serious problem that is an emergency. Do not wait to see if the symptoms will go away. Get medical help right away. Call your local emergency services (911 in the [place] Do not drive yourself to the hospital. Summary Abnormal uterine bleeding is unusual bleeding from the uterus. Any type of abnormal bleeding should be checked by a health care provider. Many cases are minor andsimple to treat, but others may be more serious. Treatment will depend on the cause of the bleeding and how severe it is. Get help right away if you faint, you have bleeding that soaks through a sanitary pad every hour, or you pass large blood clots from your vagina. This information is not intended to replace advice given to you by your health care provider. Make sure you discuss any questions you have with your health care provider. Document Revised: 07/23/2021 Document Reviewed: 07/23/2021 [employer] Patient Education 2022 [employer] Follow Up Care 02/27/2023 14:09:42 With:Caren Cuadra Address: [address] [place] [address]- Business (1) When:03/02/2023 15:49:37 With:Tai RODRÍGUEZ Address: [address] [place] [address]- Business (1) When:03/02/2023 15:48:25 With:Heide Gutierrez Address: [address] [place] [address] [place] [address]- Business (1) When:Within 3 Day(s) [facility]11-24-2023 Evaluation + Plan note Diagnostic Tests Pending * Urine Culture 02/27/23 [facility]05-13-2023 Evaluation + Plan note Diagnostic Tests Pending * Insulin Level Total 08/16/22 * T3 Free [facility]16/22 [facility] Future App[facility]ments Appointment Date:11/27/2021 03:20:00 PM Scheduled Provider:Jaiden KELLY MD Location:[facility] [address] note Future Appointments Appointment Date:04/24/2023 02:00:00 PM Scheduled Provider: Location:[facility] Future Appointments Appointment Date:08/18/2023 02:00:00 PM Scheduled Provider: Location:[facility] Appointment Type:ASU IV Other (FT) Appointment Date:08/25/2023 02:00:00 PM Scheduled Provider: Location:[facility] Appointment Type:ASU IV Other (FT) Diagnostic Tests Pending * Path. Review [facility]17[facility] App[facility]ments Appointment Date:08/25/2023 02:00:00 PM Scheduled Provider: Location:[facility] Appointment Type:ASU IV Other [facility] App[facility]ments Appointment Date:10/19/2023 09:15:00 AM Scheduled Provider:Rafa QUAN, Kati Katz Location[facility] Swelling of both lower extremities- Primary Spider varicose veins PAD (peripheral artery disease) (CMS-HCC) Unspecified peripheral vascular disease [facility] Diagnosis Swelling of both lower extremities- Primary PAD (peripheral artery disease) (CMS-HCC) Unspecified peripheral vascular disease [facility] Narrative No data available for this section [facility] No data available for this section [facility]ructionsNot on filedocumented in this encounter [facility] filedocumented in this encounter [facility] No data available for this section [facility] Summary Purpose Family History No Family History Records Found No data available for this section No data available for this section No data available for this section No data available for this section No data available for this section No data available for this section No data available for this section No data available for this section No data available for this section No data available for this section No Family History Records FoundNo Family History Records FoundNo Family History Records Found No data available for this section No Family History Records FoundNo Family History Records Found No data available for this section No Family History Records FoundNo Family History Records Found No data available for this section No Family History Records FoundNo Family History Records Found No data available for this section No Family History Records FoundNo Family History Records Found No data available for this section No data available for this section No Family History Records FoundNo Family History Records FoundNo Family History Records Found No data available for this section No Family History Records Found No data available for this section No Family History Records FoundNo Family History Records FoundNo Family History Records Found No data available for this section No Family History Records FoundNo Family History Records Found Advance Directives No Advanced Directives Records FoundNo Advanced Directives Records FoundNo Advanced Directives Records FoundNo Advanced Directives Records FoundNo Advanced Directives Records FoundNo Advanced Directives Records FoundNo Advanced Directives Records FoundNo Advanced Directives Records FoundNo Advanced Directives Records FoundNo Advanced Directives Records FoundNo Advanced Directives Records FoundNo Advanced Directives Records FoundNo Advanced Directives Records FoundNo Advanced Directives Records FoundNo Advanced Directives Records FoundNo Advanced Directives Records FoundNo Advanced Directives Records FoundNo Advanced Directives Records FoundNo Advanced Directives Records FoundNo Advanced Directives Records FoundNo Advanced Directives Records Found Reason for Referral Specialty Diagnoses / Procedures Referred By Contac t Referred To Contact Diagnoses Swelling of both lower extremities PAD (peripheral artery disease) ([facility]) Procedures Vas venous duplex insufficiency lwr bi Kati Craig MD [address], [address] [address] Referral ID Status Reason Start Date Expiration Date V isits Requested Visits Authorized [id number] Pending Review 10/01/2023 09/30/2024 1 1 Specialty Diagnoses / Procedures Referred By Contac t Referred To Contact Diagnoses Swelling of both lower extremities PAD (peripheral artery disease) ([facility] Procedures Vas art doppler lwr bilat mult lev/PVR Kati Craig MD [address], [address] [address] Referral ID Status Reason Start Date Expiration Date V isits Requested Visits Authorized [id number] Pending Review 10/01/2023 09/30/2024 1 1 Additional Source Comments INFORMATION SOURCE (unrecogn ized section and content) DATE CREATED AUTHOR 08/24/2021 [facility] DATE CREATED AUTHOR AUTHOR'S ORGANIZ ATION 08/22/2023 [facility] DATE CREATED AUTHOR AUTHOR'S ORGANIZ ATION 08/23/2023 [facility] DATE CREATED AUTHOR AUTHOR'S ORGANIZ ATION 09/06/2023 [facility] DATE CREATED AUTHOR AUTHOR'S ORGANIZ ATION 09/13/2023 [facility] DATE CREATED AUTHOR AUTHOR'S ORGANIZ ATION 09/20/2023 [facility] DATE CREATED AUTHOR AUTHOR'S ORGANIZ ATION 09/27/2023 [facility] DATE CREATED AUTHOR AUTHOR'S ORGANIZ ATION 09/30/2023 [facility] DATE CREATED AUTHOR AUTHOR'S ORGANIZ ATION 10/31/2023 [facility] DATE CREATED AUTHOR AUTHOR'S ORGANIZ ATION 11/25/2023 [facility] DATE CREATED AUTHOR AUTHOR'S ORGANIZ ATION 11/30/[address] [facility] DATE CREATED AUTHOR AUTHOR'S ORGANIZ ATION 03/19/[address] [facility] DATE CREATED AUTHOR AUTHOR'S ORGANIZ ATION 03/24/2024 [facility] Care Team (unrecognized sect ion and content) Zoology Professor Relationship Specialty Start Date End Date Heide Gutierrez MD [address] [place], [place] [phone] PCP - General 09/24/23 Zoology Professor Relationship Specialty Start Date End Date Heide Gutierrez MD [address] [place], [place] [id number] PCP - General 09/24/23 Reason for Visit (unrecogniz ed section and content) Reason Comments Spider varicose veins feet discoloration swollen extremities Specialty Diagnoses / Procedures Referred By Juliette mendoza Referred To Contact Vascular Surgery Diagnoses Spider varicose veins Heide Gutierrez MD [address] [place] [address] Kati Craig MD [address] [place] [address] Referral ID Status Reason Start Date Expiration Date V isits Requested Visits Authorized [id number] Pending Review 09/15/2023 09/14/2024 1 1 FOR RECORDS PERTAINING TO PATIENTS WHO ARE OR HAVE BEEN ENROLLED IN A CHEMICAL DEPENDENCY/SUBSTANCEABUSE PROGRAM, SOME INFORMATION MAY BE OMITTED. This clinical summary was aggregated from multiple sources. Caution should be exercised in using it in the provision of clinical care. This summary normalizes information from multiple sources, and as a consequence, information in this document may materially change the coding, format and clinical context of patient data. In addition, data may be omitted in some cases. CLINICAL DECISIONS SHOULD BE BASED ON THE PRIMARY CLINICAL RECORDS. [facility] [employer] [place] [facility]. provides no warranty or guarantee of the accuracy or completeness of information in this document.
[2024-06-10 17:08] LABS: Age Gdln ACOG Testing Note (.); HPV Aptima Negative (Negative); IGP, Aptima HPV, rfx 16/18,45 Note (.)
== END 2024-06-06 20:45 | disposition home or self-care (01) ==
LOC: LAB 20:44
PROVIDERS: Visit Provider Physician Assistant
DX: Z01.419 Encounter for gynecological examination (general) (routine) without abnormal findings (principal)
CPT/HCPCS: 87624; 88175